=== PATIENT | female | born 2000 | race Caucasian/White ===

== ENCOUNTER 2021-05-03 13:02 | Outpatient (CLI) | payer OTHER | END 2021-05-03 23:59 | disposition home or self-care (01) | LOC: LAB.N 13:02 | PROVIDERS: ATTEND Nurse Practitioner | DX: R39.9 Unspecified symptoms and signs involving the genitourinary system (principal) | CPT/HCPCS: 87086; 87181 ==

== ENCOUNTER 2021-07-29 02:16 | Emergency (ER) | payer OTHER ==
[2021-07-29 02:28] VITALS: BP 120/72
[2021-07-29 02:47] LABS: BASOPHILS # (AUTO) 0.1 10^3/uL (0.0-0.1); BASOPHILS % (AUTO) 0.6 %; EOSINOPHILS # (AUTO) 0.1 10^3/uL (0.0-0.7); EOSINOPHILS % (AUTO) 1.4 %; HCT - HEMATOCRIT 42.9 % (37.0-47.0); HGB - HEMOGLOBIN 14.1 g/dL (12.0-16.0); LYMPHOCYTES # (AUTO) 1.6 10^3/uL (1.5-3.5); MEAN CORPUSCULAR HEMOGLOBIN 28.4 pg (27.0-31.0); MEAN CORPUSCULAR HGB CONC 32.9 g/dL (32.0-36.0); MEAN CORPUSCULAR VOLUME 86.3 fL (81.0-99.0); MONOCYTES # (AUTO) 0.8 10^3/uL (0.0-1.0); MONOCYTES % (AUTO) 9.3 %; NEUTROPHILS # (AUTO) 5.9 10^3/uL (1.5-6.6); NEUTROPHILS % (AUTO) 69.6 %; PLT - PLATELET COUNT 232 10^3/uL (130-450); RED BLOOD COUNT 4.97 10^6/uL (4.20-5.40); RED CELL DISTRIBUTION WIDTH 13.2 % (12.0-15.0); WHITE BLOOD COUNT 8.5 x10^3/uL (4.8-10.8)
--- NOTE | 2021-07-29 03:03 | ED Physician Documentation ---
PD HPI MHE - Stated complaint Stated Complaint: SI - Chief complaint Chief Complaint: MHE - History obtained from History obtained from: Patient - History of Present Illness Primary symptom: Suicidal ideation, Self harm - cut Timing - onset: Today Contributing factors: Off meds Similar symptoms before: Diagnosis (depression) Recently seen: Clinic - Additional information Additional information: patient was driven to ED by her friend. Patient states "I'm having some suicidal thoughts". She started feeling this way earlier today. She does not have a specific plan (has not thought through/envisioned a process leading to suicide nor has specific methods she has considered). She says she stopped taking her lexapro (which she has been taking for approximately 1.5 months); she stopped 2- 3 days ago because she has felt ill with sore throat and subjective fever (has not taken temperature at home but has felt as though she has had fevers). She was evaluated in outpatient setting ([facility]) yesterday for this; patient says she had a COVID swab (result was negative for COVID) and has a strep test pending (does not think she had a rapid strep test performed). Tonight she took a razor (using a blade that was in a shaving razor, not an individual/loose razor blade) and self-inflicted abrasions and some superficial cuts to her left thigh. She then called a friend to tell her how she was feeling, cried for much of the call and thus friend came to patient's residence and then drove patient to ED. Patient was agreeable to come to ED (she is here voluntarily). Patient is COVID vaccinated. Review of Systems Constitutional: reports: Fever (subjective (see HPI)) Cardiac: reports: Reviewed and negative Respiratory: reports: Reviewed and negative GI: reports: Reviewed and negative PD PAST MEDICAL HISTORY - Past Medical History Past Medical History: Yes Psych: Depression - Allergies Allergies/Adverse Reactions: Allergies Allergy/AdvReac Type Severity Reaction Status Date / Time No Known Drug Allergies Allergy Verified 07/29/21 02:28 PD ED PE NORMAL - Vitals Vital signs reviewed: Yes - General General: Alert and oriented X 3, No acute distress, Well developed/nourished - Cardiac Cardiac: RRR, No murmur - Respiratory Respiratory: No respiratory distress, Clear bilaterally - Abdomen Abdomen: Soft, Non tender - Neuro Eye Opening: Spontaneous Motor: Obeys Commands Verbal: Oriented GCS Score: 15 - Psych Psych: Normal mood, Normal affect PD ED PE EXPANDED - HEENT HEENT: Pharyngeal erythema, Tonsillar exudate. No: Swollen tonsils - Extremities JEF LE visual: 1 - abrasion (multiple linear superficial abrasions, approximately 2 cm across consistent with her report of using a razor still in the shaver on her thigh) Results - Vitals Vitals: Vital Signs - 24 hr 07/29/21 02:19 Temperature 37.0 C Heart Rate 103 H Respiratory 16 Rate Blood Pressure 120/72 O2 Saturation 98 Oxygen O2 Source Room air - Labs Labs: Laboratory Tests 07/29/21 07/29/21 07/29/21 02:40 02:40 02:40 WBC 8.5 RBC 4.97 Hgb 14.1 Hct 42.9 MCV 86.3 MCH 28.4 MCHC 32.9 RDW 13.2 Plt Count 232 MPV 10.0 Neut # (Auto) 5.9 Lymph # (Auto) 1.6 [place] # (Auto) 0.8 Eos # (Auto) 0.1 Baso # (Auto) 0.1 Absolute Nucleated RBC 0.00 Nucleated RBC % 0.0 Sodium 138 Potassium 3.2 L Chloride 103 Carbon Dioxide 25 Anion Gap 10.0 BUN 15 Creatinine 0.8 Estimated GFR (MDRD) 92 Glucose 132 H Calcium 9.4 Total Bilirubin 0.4 AST 86 H ALT 25 Alkaline Phosphatase 54 Total Protein 8.2 Albumin 4.5 Globulin 3.7 Albumin/Globulin Ratio 1.2 Lipase 31 TSH 6.92 H Salicylates < 6.0 Acetaminophen < 10 L Ethyl Alcohol < 5.0 PD MEDICAL DECISION MAKING - ED course Complexity details: reviewed results, re-evaluated patient, considered differential, d/w patient ED course: On initial H+P, I asked patient if she is interested in pursuing inpatient mental health treatment and she says she isn't certain. We agreed to give some time for tests to result and this would give her some time to consider whether she felt confidently safe to go home, or else wants to be admitted or remains uncertain. She fell asleep and rather than wake her, I let her sleep for a few hours before waking her up at change of shift. She awakens easily to voice. I reviewed test results with her including mild hypokalemia and mildly elevated TSH. We revisited the question of how she feels and she says she wants to be discharged and that she is confident that she feels safe going back home. She contracts for safety, says she will return immediately if she feels unsafe at home (including if she is unsure if she is safe, specifically regarding thoughts of self-harm or suicide). Departure - Departure Disposition: Home, Self Care Clinical Impression: Hypokalemia Depression Qualifiers: Depression Type: unspecified Qualified Code(s): F32.A - Depression, unspecified Condition: Good Instructions: ED Depression, ED Potassium Deficiency Follow-Up: [facility] [Provider Group] Comments: Follow up with your primary care provider, next available appointment. Please return to the emergency department at any time for reevaluation if you feel unsafe at home (such as recurrence of thoughts of self-harm). I recommend you restart your lexapro as prescribed. You should also discuss with your primary care provider your abnormal test results. Specifically, low potassium level and mildly elevated thyroid stimulating hormone level. Further testing might be indicated for one or both of these findings, but further emergent testing is not indicated at this time. Discharge Date/Time: 07/29/21 08:10
[2021-07-29 03:06] LABS: ACETAMINOPHEN < 10 ug/mL (10-30); ALBUMIN 4.5 g/dL (3.2-5.5); ALBUMIN/GLOBULIN RATIO 1.2 (1.0-2.2); ALKALINE PHOSPHATASE 54 IU/L (42-121); ALT ALANINE AMINOTRANSFERASE 25 IU/L (10-60); AST ASPARTATE AMINOTRANSFERASE 86 IU/L (10-42); BILIRUBIN,TOTAL 0.4 mg/dL (0.2-1.0); BUN - BLOOD UREA NITROGEN 15 mg/dL (6-20); CALCIUM 9.4 mg/dL (8.5-10.3); CARBON DIOXIDE - CO2 25 mmol/L (21-32); CHLORIDE 103 mmol/L (101-111); CREATININE 0.8 mg/dL (0.4-1.0); ETOH - ETHANOL < 5.0 mg/dL; GFR - MDRD 92 (>89); GLUCOSE 132 mg/dL (70-100); LIPASE 31 U/L (22-51); POTASSIUM 3.2 mmol/L (3.5-5.0); SALICYLATE < 6.0 mg/dL; SODIUM 138 mmol/L (135-145); TOTAL PROTEIN 8.2 g/dL (6.7-8.2)
[2021-07-29] MEDS ORDERED: POTASSIUM CHLORIDE 20 MEQ TABLET PO STA (07:53)
== END 2021-07-29 08:10 | disposition home or self-care (01) ==
LOC: ED 02:16
DX: F32.A Depression, unspecified (principal); S70.312A Abrasion, left thigh, initial encounter; X78.8XXA Intentional self-harm by other sharp object, initial encounter; Y92.009 Unspecified place in unspecified non-institutional (private) residence as the place of occurrence of the external cause; E87.6 Hypokalemia; R94.6 Abnormal results of thyroid function studies
CPT/HCPCS: 36415; 80053; 80307; 80320; 80329; 83690; 84443; 85025; 99283; 99284; A9270

== ENCOUNTER 2022-03-26 14:30 | Emergency (ER) | payer OTHER ==
[2022-03-26 15:01] LABS: BASOPHILS # (AUTO) 0.1 10^3/uL (0.0-0.1); BASOPHILS % (AUTO) 0.5 %; EOSINOPHILS # (AUTO) 0.1 10^3/uL (0.0-0.7); EOSINOPHILS % (AUTO) 1.2 %; HCT - HEMATOCRIT 38.5 % (37.0-47.0); HGB - HEMOGLOBIN 12.5 g/dL (12.0-16.0); LYMPHOCYTES # (AUTO) 2.2 10^3/uL (1.5-3.5); LYMPHOCYTES % (AUTO) 23.9 %; MEAN CORPUSCULAR HEMOGLOBIN 27.5 pg (27.0-31.0); MEAN CORPUSCULAR HGB CONC 32.5 g/dL (32.0-36.0); MEAN CORPUSCULAR VOLUME 84.6 fL (81.0-99.0); MEAN PLATELET VOLUME 10.1 fL (7.9-10.8); MONOCYTES # (AUTO) 0.6 10^3/uL (0.0-1.0); MONOCYTES % (AUTO) 6.2 %; NEUTROPHILS # (AUTO) 6.3 10^3/uL (1.5-6.6); NEUTROPHILS % (AUTO) 67.8 %; PLT - PLATELET COUNT 324 10^3/uL (130-450); RED BLOOD COUNT 4.55 10^6/uL (4.20-5.40); RED CELL DISTRIBUTION WIDTH 13.2 % (12.0-15.0); WHITE BLOOD COUNT 9.2 x10^3/uL (4.8-10.8)
[2022-03-26 15:13] LABS: ALBUMIN 4.2 g/dL (3.2-5.5); ALBUMIN/GLOBULIN RATIO 1.3 (1.0-2.2); BILIRUBIN,TOTAL 0.4 mg/dL (0.2-1.0); CALCIUM 9.5 mg/dL (8.5-10.3); CREATININE 0.8 mg/dL (0.4-1.0); POTASSIUM 3.8 mmol/L (3.5-5.0); TOTAL PROTEIN 7.4 g/dL (6.7-8.2)
[2022-03-26 15:42] LABS: BILIRUBIN,URINE NEGATIVE (NEGATIVE); GLUCOSE, URINE (UA) NEGATIVE (NEGATIVE); KETONES,URINE (UA) NEGATIVE (NEGATIVE); LEUKOCYTE ESTERASE, URINE NEGATIVE (NEGATIVE); NITRITE,URINE NEGATIVE (NEGATIVE); OCCULT BLOOD,URINE NEGATIVE (NEGATIVE); PH,URINE 6.5 PH (5.0-7.5); PROTEIN,URINE NEGATIVE (NEGATIVE); UROBILINOGEN,URINE 0.2 (NORMAL) E.U./dL (NORMAL)
[2022-03-26 15:45] LABS: CLARITY,URINE CLEAR (CLEAR); HCG UR QUAL NEGATIVE
[2022-03-26] MEDS ORDERED: KETOROLAC 60 MG/2 ML VIAL IM STA (16:00)
--- NOTE | 2022-03-26 16:05 | ED Physician Documentation ---
History of Present Illness - Stated complaint Stated Complaint: ABD PX - Chief complaint Chief Complaint: Abd Pain - Additonal information Additional information: 21-year-old female who comes to the emergency department for evaluation of lower abdominal pain. Reports that she was seen at an ER on 15 March for lower abdominal pain and cramping. She had a CT scan that showed colitis. ED providers at that time felt she likely had IBS and was started on Bentyl. Initially this improve the symptoms until today where the pain got worse. She has followed up with her PCP. She has obtained a referral to GI though it has not been completed. No fevers, melena or hematochezia. No nausea vomiting or diarrhea. She does report that her sister has Crohn's. She has not taken anything other than the Bentyl Review of Systems Constitutional: reports: Reviewed and negative Nose: reports: Reviewed and negative Throat: reports: Reviewed and negative Cardiac: reports: Chest pain / pressure Respiratory: reports: Reviewed and negative GI: reports: Abdominal Pain. 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 : None HEENT: None Psych: Depression, Anxiety, Post traumatic stress disorder Musculoskeletal: None Derm: None - Past Surgical History Past Surgical History: No - Present Medications Home Medications: Ambulatory Orders Medication Instructions Recorded Confirmed Dicyclomine [Bentyl] 20 mg PO QID PRN 03/26/22 03/26/22 Fluoxetine HCl [Prozac] 40 mg PO DAILY 03/26/22 03/26/22 Ondansetron Odt [Zofran Odt] 4 mg TL Q6H PRN 03/26/22 03/26/22 hydrOXYzine HCL [Hydroxyzine HCl] 10 mg PO QID PRN 03/26/22 03/26/22 polyethylene glycoL 3350 [Miralax] 17 gm PO DAILY 03/26/22 03/26/22 - Allergies Allergies/Adverse Reactions: Allergies Allergy/AdvReac Type Severity Reaction Status Date / Time No Known Drug Allergies Allergy Verified 03/26/22 14:33 - Social History Does the pt smoke?: No Smoking Status: Never smoker Does the pt drink ETOH?: No Does the pt have substance abuse?: No - Immunizations Immunizations are current?: No - POLST Patient has POLST: No PD ED PE NORMAL - General General: Alert and oriented X 3, No acute distress - HEENT HEENT: Atraumatic, Ears normal - Neck Neck: Supple, no meningeal sign - Cardiac Cardiac: RRR, No murmur - Respiratory Respiratory: No respiratory distress - Abdomen Abdomen: Normal bowel sounds, Soft, Non tender (No abdominal tenderness elicited on exam) - Back Back: No CVA TTP - Derm Derm: Normal color, Warm and dry, No rash - Extremities Extremities: No deformity, No tenderness to palpate, Normal ROM s pain - Neuro Neuro: Alert and oriented X 3, 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 Eye Opening: Spontaneous Motor: Obeys Commands Verbal: Oriented GCS Score: 15 - Psych Psych: Normal mood Results - Vitals Vitals: Vital Signs - 24 hr 03/26/22 14:36 Temperature 37.2 C Heart Rate 92 Respiratory 16 Rate Blood Pressure 121/60 O2 Saturation 98 Oxygen O2 Source Room air - Labs Labs: Laboratory Tests 03/26/22 03/26/22 03/26/22 14:50 14:55 14:55 WBC 9.2 RBC 4.55 Hgb 12.5 Hct 38.5 MCV 84.6 MCH 27.5 MCHC 32.5 RDW 13.2 Plt Count 324 MPV 10.1 Neut # (Auto) 6.3 Lymph # (Auto) 2.2 [place] # (Auto) 0.6 Eos # (Auto) 0.1 Baso # (Auto) 0.1 Absolute Nucleated RBC 0.00 Nucleated RBC % 0.0 Sodium 136 Potassium 3.8 Chloride 101 Carbon Dioxide 28 Anion Gap 7.0 BUN 14 Creatinine 0.8 Estimated GFR (MDRD) 91 Glucose 103 H Calcium 9.5 Total Bilirubin 0.4 AST 20 ALT 20 Alkaline Phosphatase 48 Total Protein 7.4 Albumin 4.2 Globulin 3.2 Albumin/Globulin Ratio 1.3 Lipase 31 Urine Color YELLOW Urine Clarity CLEAR Urine pH 6.5 Ur Specific [place] 1.025 Urine Protein NEGATIVE Urine Glucose (UA) NEGATIVE Urine Ketones NEGATIVE Urine Occult Blood NEGATIVE Urine Nitrite NEGATIVE Urine Bilirubin NEGATIVE Urine Urobilinogen 0.2 (NORMAL) Ur Leukocyte Esterase NEGATIVE Ur Microscopic Review NOT INDICATED Urine Culture Comments NOT INDICATED Urine HCG, Qual NEGATIVE PD MEDICAL DECISION MAKING - ED course Complexity details: re-evaluated patient, considered differential, d/w patient ED course: This is a very well-appearing 21-year-old female that presents emergency department for evaluation of lower abdominal pain. Seen the beginning of March at an ER in [place] and diagnosed with colitis after CT scan. Patient reports to me verbally that the ER providers felt she had irritable bowel syndrome and she was started on dyclonine. That did initially improve her symptoms over the last few days pain has worsened. She does have a pending referral to GI. 9 here in the emergency department I did not elicit any abdominal tenderness on exam. Her screening labs are also essentially unremarkable. Therefore will defer any CT imaging today. I discussed with patient that she may have a constellation of symptoms and includes irritable bowel versus an inflammatory bowel disorder. Referral to GI is appropriate as she likely needs EGD versus colonoscopy. She was given an injection of Toradol here in the emergency department And on reevaluation does have some minor pain relief. I do recommend Tylenol and ibuprofen [id number]. If this is in fact an irritable as opposed to an inflammatory bowel condition she may benefit from increased fiber intake and I have also advised this with her. However given her unremarkable exam and normal labs and vital signs will defer any further imaging. Emergent return precautions otherwise discussed Departure - Departure Disposition: 01 Home, Self Care Clinical Impression: Lower abdominal pain Condition: Stable Record reviewed to determine appropriate education?: Yes Instructions: ED IBS, Diet High Fiber Dc Comments: Milly you were seen today in the emergency department for pain in your lower abdomen. You were recently diagnosed with colitis after a CAT scan in [place]. However it sounds like the ED providers at that time felt you may have an irritable bowel syndrome and started you on Bentyl. Inflammatory and irritable bowel symptoms often begin in young adulthood. I do recommend that you begin to keep a food diary as well as a diary of your symptoms. Continuing the Bentyl is okay. For worsening symptoms I recommend Tylenol or ibuprofen. If this is in fact simply an irritable bowel syndrome as opposed to an inflammatory condition, I do recommend that you increase your fiber intake. Increasing doses of fiber can help reduce the spasm seen in irritable bowel. Continue to follow-up with gastroenterology. You would benefit from further evaluation with either an EGD or colonoscopy. Return to the emergency department if you have fevers, black or bloody stools, uncontrolled vomiting or suddenly severe or different abdominal pain.
[2022-03-26 16:31] VITALS: BP 108/60
== END 2022-03-26 16:33 | disposition home or self-care (01) ==
LOC: ED 14:30
DX: R10.30 Lower abdominal pain, unspecified (principal)
CPT/HCPCS: 36415; 80053; 81001; 81003; 81025; 83690; 85025; 87086; 96372; 99283; 99284

== ENCOUNTER 2022-05-03 11:08 | Emergency (ER) | payer OTHER ==
[2022-05-03 11:41] LABS: BASOPHILS # (AUTO) 0.1 10^3/uL (0.0-0.1); EOSINOPHILS # (AUTO) 0.2 10^3/uL (0.0-0.7); EOSINOPHILS % (AUTO) 3.1 %; HCT - HEMATOCRIT 37.9 % (37.0-47.0); HGB - HEMOGLOBIN 12.3 g/dL (12.0-16.0); LYMPHOCYTES % (AUTO) 35.1 %; MEAN CORPUSCULAR HEMOGLOBIN 27.4 pg (27.0-31.0); MEAN CORPUSCULAR HGB CONC 32.5 g/dL (32.0-36.0); MEAN CORPUSCULAR VOLUME 84.4 fL (81.0-99.0); MEAN PLATELET VOLUME 9.8 fL (7.9-10.8); MONOCYTES # (AUTO) 0.6 10^3/uL (0.0-1.0); MONOCYTES % (AUTO) 9.8 %; NEUTROPHILS # (AUTO) 2.9 10^3/uL (1.5-6.6); NEUTROPHILS % (AUTO) 50.7 %; PLT - PLATELET COUNT 351 10^3/uL (130-450); RED BLOOD COUNT 4.49 10^6/uL (4.20-5.40); RED CELL DISTRIBUTION WIDTH 14.1 % (12.0-15.0); WHITE BLOOD COUNT 5.7 x10^3/uL (4.8-10.8)
[2022-05-03 11:52] LABS: ALBUMIN 4.1 g/dL (3.2-5.5); ALBUMIN/GLOBULIN RATIO 1.2 (1.0-2.2); BILIRUBIN,TOTAL 0.4 mg/dL (0.2-1.0); CALCIUM 9.5 mg/dL (8.5-10.3); CREATININE 0.7 mg/dL (0.4-1.0); POTASSIUM 4.2 mmol/L (3.5-5.0); TOTAL PROTEIN 7.5 g/dL (6.7-8.2)
--- NOTE | 2022-05-03 13:33 | ED Physician Documentation ---
PD HPI ABD PAIN - Stated complaint Stated Complaint: ABD PX - Chief complaint Chief Complaint: Abd Pain - History obtained from History obtained from: Patient - History of Present Illness Timing - onset: How many months ago (2) Timing - duration: Months (2) Timing - details: Abrupt onset, Still present, Waxing and waning Quality: Cramping, Aching, Pain Location: Periumbilical, LLQ Improved by: No: Eating, BM Worsened by: Eating, Palpation. No: Breathing Associated symptoms: Nausea. No: Fever, Vomiting, Diarrhea, Hematochezia, Dysuria, Vaginal bleeding, Vaginal dc Similar symptoms before: No diagnosis (has had persistent pain with prior CT/US/lab and stool testings. Recent GI appt with scheduled endoscopies early May. At this point, I would treat symptoms and not necessarily do much testing. Patient okay with that.) Recently seen: Clinic, Emergency Dept Review of Systems Constitutional: denies: Fever, Chills Nose: denies: Rhinorrhea / runny nose, Congestion Throat: denies: Sore throat Respiratory: denies: Cough GI: reports: Abdominal Pain, Nausea. 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 : None HEENT: None Psych: Depression, Anxiety, Post traumatic stress disorder Musculoskeletal: None Derm: None - Past Surgical History Past Surgical History: No - Present Medications Home Medications: Ambulatory Orders Medication Instructions Recorded Confirmed Dicyclomine [Bentyl] 20 mg PO QID PRN 03/26/22 03/26/22 Fluoxetine HCl [Prozac] 40 mg PO DAILY 03/26/22 03/26/22 Ondansetron Odt [Zofran Odt] 4 mg TL Q6H PRN 03/26/22 03/26/22 hydrOXYzine HCL [Hydroxyzine HCl] 10 mg PO QID PRN 03/26/22 03/26/22 polyethylene glycoL 3350 [Miralax] 17 gm PO DAILY 03/26/22 03/26/22 Docusate Sodium 100Mg Capsule 100 mg PO DAILY #20 cap 05/03/22 [Colace 100Mg Capsule] HYDROcod/ACETAM 5/325 [[place] 5/325] 1 ea PO Q6H PRN #15 tablet 05/03/22 Promethazine [Phenergan] 25 mg PO Q6H PRN #20 tab 05/03/22 - Allergies Allergies/Adverse Reactions: Allergies Allergy/AdvReac Type Severity Reaction Status Date / Time No Known Drug Allergies Allergy Verified 05/03/22 11:19 - Social History Does the pt smoke?: No Smoking Status: Never smoker Does the pt drink ETOH?: No Does the pt have substance abuse?: No - Immunizations Immunizations are current?: No - POLST Patient has POLST: No PD ED PE NORMAL - Vitals Vital signs reviewed: Yes - General General: Alert and oriented X 3, Well developed/nourished, Other (appears in pain lower abd. ) - HEENT HEENT: PERRL, EOMI (nonicteric), Pharynx benign - Neck Neck: Supple, no meningeal sign, No adenopathy - Cardiac Cardiac: RRR, No murmur - Respiratory Respiratory: Clear bilaterally - Abdomen Abdomen: Normal bowel sounds, Soft, Non distended, No organomegaly, Other (tender mid to left abdomen without percussion nor rebound tenderness. ) - Female Female : Deferred - Rectal Rectal: Deferred - Back Back: No CVA TTP - Derm Derm: Normal color, Warm and dry - Extremities Extremities: Normal ROM s pain, No calf tenderness / cord - Neuro Neuro: Alert and oriented X 3, No motor deficit, Normal speech Results - Vitals Vitals: Vital Signs - 24 hr 05/03/22 15:56 Heart Rate 83 Respiratory 18 Rate Blood Pressure 97/82 H O2 Saturation 100 Oxygen O2 Source Room air - Labs Labs: Laboratory Tests 05/03/22 05/03/22 05/03/22 11:35 11:35 13:40 WBC 5.7 RBC 4.49 Hgb 12.3 Hct 37.9 MCV 84.4 MCH 27.4 MCHC 32.5 RDW 14.1 Plt Count 351 MPV 9.8 Neut # (Auto) 2.9 Lymph # (Auto) 2.0 [place] # (Auto) 0.6 Eos # (Auto) 0.2 Baso # (Auto) 0.1 Absolute Nucleated RBC 0.00 Nucleated RBC % 0.0 Sodium 138 Potassium 4.2 Chloride 103 Carbon Dioxide 26 Anion Gap 9.0 BUN 19 Creatinine 0.7 Estimated GFR (MDRD) 107 Glucose 92 Calcium 9.5 Total Bilirubin 0.4 AST 22 ALT 19 Alkaline Phosphatase 49 Total Protein 7.5 Albumin 4.1 Globulin 3.4 Albumin/Globulin Ratio 1.2 Lipase 32 Urine Color YELLOW Urine Clarity CLEAR Urine pH 6.0 Ur Specific [place] 1.020 Urine Protein NEGATIVE Urine Glucose (UA) NEGATIVE Urine Ketones NEGATIVE Urine Occult Blood TRACE-INTA Urine Nitrite NEGATIVE Urine Bilirubin NEGATIVE Urine Urobilinogen 0.2 (NORMAL) Ur Leukocyte Esterase NEGATIVE Ur Microscopic Review NOT INDICATED Urine Culture Comments NOT INDICATED Urine HCG, Qual NEGATIVE PD MEDICAL DECISION MAKING - ED course Complexity details: reviewed old records, reviewed results, considered differential (has had ongoing workup with planned endoscopy/colonoscopy in couple weeks. I do not see value in repeated imaging tests, and will treat symptoms mainly. ), d/w patient Departure - Departure Disposition: Home, Self Care Clinical Impression: Abdominal pain, Nausea Condition: Stable Record reviewed to determine appropriate education?: Yes Instructions: ED Abdominal Pain Female Non-Specific Abdominal Pain Follow-Up: [facility] [Provider Group] Prescriptions: Docusate Sodium 100Mg Capsule [Colace 100Mg Capsule] 100 mg PO DAILY #20 cap HYDROcod/ACETAM 5/325 [[place] 5/325] 1 ea PO Q6H PRN #15 tablet PRN Reason: Pain Promethazine [Phenergan] 25 mg PO Q6H PRN #20 tab PRN Reason: Nausea / Vomiting Comments: Small frequent fluids and stay well-hydrated. Promethazine every 6 hours if needed for nausea. I would add docusate stool softener daily to help with regular stools. Continue your MiraLAX daily and as needed. Continue your other usual medications. Add Tylenol every 4-6 hours if needed for pain. Do not use any anti- inflammatories as directed by your top lift trimmer. Add hydrocodone pain medicine if needed for pains. [facility] prescriptions [email or web address]. Follow-up with your top lift trimmer for endoscopy May 14 as planned. Return if worsening or other symptoms. My narcotic instructions I am prescribing a short course of narcotic pain medication for you. These are potentially dangerous and addictive medications that should be used carefully. These medications may constipate you. Take an [id number] stool softener such as docusate twice daily with plenty of water while taking these medications. If you go 24 hours without a bowel movement, take [id number] MiraLAX, per package instructions. Do not drink or drive while taking these medications. If you received narcotic or sedating medications while in the emergency department do not drive for 24 hours. Store this medication in a safe, secure place and out of reach of children. It is a violation of federal law to give or sell this medication to another person or to use in a manner other than prescribed. The ED will not refill narcotic prescriptions, including prescriptions lost or stolen. You can dispose of unwanted medications at the [facility]'s office or at several pharmacies such as [facility]. Discharge Date/Time: 05/03/22 15:56
[2022-05-03 13:51] LABS: BILIRUBIN,URINE NEGATIVE (NEGATIVE); GLUCOSE, URINE (UA) NEGATIVE (NEGATIVE); KETONES,URINE (UA) NEGATIVE (NEGATIVE); LEUKOCYTE ESTERASE, URINE NEGATIVE (NEGATIVE); NITRITE,URINE NEGATIVE (NEGATIVE); OCCULT BLOOD,URINE TRACE-INTA (NEGATIVE); PROTEIN,URINE NEGATIVE (NEGATIVE); UROBILINOGEN,URINE 0.2 (NORMAL) E.U./dL (NORMAL)
[2022-05-03 13:53] LABS: CLARITY,URINE CLEAR (CLEAR); HCG UR QUAL NEGATIVE
[2022-05-03] MEDS ORDERED: DROPERIDOL 5 MG/2 ML VIAL IVP STA (14:00)
[2022-05-03] MEDS ORDERED: HYDROmorphone 0.5 MG/0.5 ML SYRINGE IVP STA (14:00)
[2022-05-03] MEDS ORDERED: SODIUM CHLORIDE 0.9% 1,000 ML IV STA (14:00)
[2022-05-03] MEDS ORDERED: KETOROLAC 15 MG/ML VIAL IVP STA (14:00)
[2022-05-03 15:57] VITALS: BP 97/82
== END 2022-05-03 15:56 | disposition home or self-care (01) ==
LOC: ED 11:08
DX: R10.32 Left lower quadrant pain (principal); R11.0 Nausea
CPT/HCPCS: 36415; 80053; 81003; 81025; 83690; 85025; 96374; 99283; 99284; J1170; 81001; 87086

== ENCOUNTER 2022-06-11 09:10 | Emergency (ER) | payer OTHER ==
--- NOTE | 2022-06-11 09:33 | ED Physician Documentation ---
PD HPI NVD - Stated complaint Stated Complaint: NAUSEA - Chief complaint Chief Complaint: Abd Pain - History obtained from History obtained from: Patient - History of Present Illness Timing - onset: Last night, Yesterday Timing - duration: Hours (12) Timing - details: Abrupt onset, Still present Associated symptoms: Abdominal pain (chronic but not worse than usual today.), Loss of appetite. No: Fever, Near syncope / syncope, Dysuria Contributing factors: No: Sick contact, Bad food, Travel, Alcohol use Similar symptoms before: Has not had sx before (not usual symptom. Has lower abd/pelvic pain regularly.) Recently seen: Emergency Dept (for her pelvic pain) Review of Systems Constitutional: denies: Fever, Chills Nose: denies: Rhinorrhea / runny nose, Congestion Throat: denies: Sore throat Respiratory: denies: Cough GI: reports: Nausea, Vomiting. 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 : None HEENT: None Psych: Depression, Anxiety, Post traumatic stress disorder Musculoskeletal: None Derm: None - Past Surgical History Past Surgical History: No - Present Medications Home Medications: Ambulatory Orders Medication Instructions Recorded Confirmed Fluoxetine HCl [Prozac] 40 mg PO DAILY 03/26/22 06/11/22 Promethazine [Phenergan] 25 mg PO Q6H PRN #25 tab 06/11/22 - Allergies Allergies/Adverse Reactions: Allergies Allergy/AdvReac Type Severity Reaction Status Date / Time No Known Drug Allergies Allergy Verified 06/11/22 10:14 - Social History Does the pt smoke?: No Smoking Status: Never smoker Does the pt drink ETOH?: No Does the pt have substance abuse?: No - Immunizations Immunizations are current?: No - POLST Patient has POLST: No PD ED PE NORMAL - Vitals Vital signs reviewed: Yes - General General: Alert and oriented X 3, No acute distress, Well developed/nourished - HEENT HEENT: PERRL, EOMI, Pharynx benign - Neck Neck: Supple, no meningeal sign, No adenopathy - Cardiac Cardiac: RRR, No murmur - Respiratory Respiratory: Clear bilaterally - Abdomen Abdomen: Normal bowel sounds, Soft, Non distended - Back Back: No CVA TTP - Derm Derm: Normal color, Warm and dry - Neuro Neuro: Alert and oriented X 3, No motor deficit, No sensory deficit, Normal speech Results - Vitals Vitals: Oxygen O2 Source Room air - Labs Labs: Laboratory Tests 06/11/22 09:54 Urine Color YELLOW Urine Clarity CLEAR Urine pH 5.5 Ur Specific [place] >=1.030 H Urine Protein NEGATIVE Urine Glucose (UA) NEGATIVE Urine Ketones NEGATIVE Urine Occult Blood MODERATE H Urine Nitrite NEGATIVE Urine Bilirubin NEGATIVE Urine Urobilinogen 0.2 (NORMAL) Ur Leukocyte Esterase NEGATIVE Urine RBC 0-5 Urine WBC 0-3 Ur Squamous Epith Cells FEW Squamous Urine Bacteria Few Ur Microscopic Review INDICATED Urine Culture Comments NOT INDICATED Urine HCG, Qual NEGATIVE PD MEDICAL DECISION MAKING - ED course Complexity details: reviewed old records, reviewed results, considered differential (chronic pelvic/abd pains in the past. Does not typically have nauea/vomiting. Consider viral or food related. She does not feel she needs IV. Given IM med. ), d/w patient Departure - Departure Disposition: 01 Home, Self Care Clinical Impression: Nausea and vomiting Qualifiers: Vomiting type: unspecified Qualified Code(s): R11.2 - Nausea with vomiting, unspecified Condition: Stable Record reviewed to determine appropriate education?: Yes Instructions: ED Nausea Vomiting Follow-Up: [facility]EL[facility] ARNP [Primary Care Provider] - Prescriptions: Promethazine [Phenergan] 25 mg PO Q6H PRN #25 tab PRN Reason: Nausea / Vomiting Comments: Your urine is clear without signs of infection. Hopefully the nausea vomiting and loose stool symptoms he had are transient viral process or food related and will only be for a couple of days. Continue with your ondansetron as needed. You could add promethazine/Phenergan every 6-8 hours if needed for nausea as well. Follow-up with your primary care if not improved over the next couple of days. I transmitted the prescriptions to the [facility]. Discharge Date/Time: 06/11/22 11:24
[2022-06-11] MEDS ORDERED: PROMETHAZINE 25 MG/1 ML VIAL IM STA (10:08)
[2022-06-11 10:13] LABS: BILIRUBIN,URINE NEGATIVE (NEGATIVE); GLUCOSE, URINE (UA) NEGATIVE (NEGATIVE); KETONES,URINE (UA) NEGATIVE (NEGATIVE); LEUKOCYTE ESTERASE, URINE NEGATIVE (NEGATIVE); NITRITE,URINE NEGATIVE (NEGATIVE); OCCULT BLOOD,URINE MODERATE (NEGATIVE); PH,URINE 5.5 PH (5.0-7.5); PROTEIN,URINE NEGATIVE (NEGATIVE); UROBILINOGEN,URINE 0.2 (NORMAL) E.U./dL (NORMAL)
[2022-06-11 10:14] LABS: CLARITY,URINE CLEAR (CLEAR)
[2022-06-11 10:17] LABS: HCG UR QUAL NEGATIVE
[2022-06-11 10:34] LABS: BACTERIA,URINE Few /HPF (None Seen); RBC,URINE 0-5 /HPF (0-5); SQUAMOUS EPITHELIAL CELL,UR FEW Squamous (<= Few); WBC,URINE 0-3 /HPF (0-5)
[2022-06-11 11:20] VITALS: BP 108/72
== END 2022-06-11 11:24 | disposition home or self-care (01) ==
LOC: ED 09:10
DX: R11.2 Nausea with vomiting, unspecified (principal)
CPT/HCPCS: 81001; 81003; 81025; 87086; 96372; 99283

== ENCOUNTER 2022-07-07 21:19 | Emergency (ER) | payer OTHER ==
--- NOTE | 2022-07-07 21:33 | ED Physician Documentation ---
PD HPI FEMALE - Stated complaint Stated Complaint: BLOOD IN URINE - Chief complaint Chief Complaint: UTI - History obtained from History obtained from: Patient - History of Present Illness Timing - onset: How many weeks ago (2) Timing - details: Intermittant Pain level max: 2 Associated symptoms: No: Fever, Abdominal pain Contributing factors: No: Similar symptoms before: No diagnosis Recently seen: Clinic - Additional information Additional information: c/o 2 weeks of gross hematuria with mild suprapubic discomfort but no dysuria; she also notes mild low back pain across the lower back. Denies fever, denies injury. She says she was seen for this in outpatient setting recently and had urinalysis and was told there was no evidence of infection; per patient, she was told she was having menstrual cramps, no specific treatment at that time. Today she noted some small clots in addition to the hematuria. Review of Systems Constitutional: denies: Fever GI: denies: Abdominal Pain (suprapubic discomfort but not abdominal pain per se), Nausea, Vomiting : reports: Hematuria. 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 HEENT: None Psych: Depression, Anxiety, Post traumatic stress disorder Musculoskeletal: None Derm: None - Past Surgical History Past Surgical History: No - Present Medications Home Medications: Ambulatory Orders Medication Instructions Recorded Confirmed Fluoxetine HCl [Prozac] 40 mg PO DAILY 03/26/22 07/08/22 Cyclobenzaprine [Flexeril] 10 mg PO Q8HR PRN 07/08/22 07/08/22 Dextroamphetamine/Amphetamine 15 mg PO DAILY 07/08/22 07/08/22 [Adderall 15 mg Tablet] Meloxicam [Mobic] 7.5 mg PO BID PRN #20 tablet 07/08/22 Ondansetron HCl 4 mg PO Q6HR PRN 07/08/22 07/08/22 - Allergies Allergies/Adverse Reactions: Allergies Allergy/AdvReac Type Severity Reaction Status Date / Time No Known Drug Allergies Allergy Verified 07/08/22 13:09 - Social History Does the pt smoke?: No Smoking Status: Never smoker Does the pt drink ETOH?: No Does the pt have substance abuse?: No - Immunizations Immunizations are current?: No - POLST Patient has POLST: No PD ED PE NORMAL - Vitals Vital signs reviewed: Yes - General General: Alert and oriented X 3, No acute distress, Well developed/nourished - Abdomen Abdomen: Normal bowel sounds, Soft, Non tender, Non distended - Back Back: No CVA TTP Results - Vitals Vitals: Oxygen O2 Source Room air - Labs Labs: Laboratory Tests 07/07/22 21:30 Urine Color YELLOW Urine Clarity HAZY Urine pH 6.0 Ur Specific [place] 1.020 Urine Protein NEGATIVE Urine Glucose (UA) NEGATIVE Urine Ketones NEGATIVE Urine Occult Blood SMALL H Urine Nitrite NEGATIVE Urine Bilirubin NEGATIVE Urine Urobilinogen 0.2 (NORMAL) Ur Leukocyte Esterase NEGATIVE Urine RBC 6-10 H Urine WBC 0-3 Ur Squamous Epith Cells NONE SEEN Urine Bacteria None Seen Ur Microscopic Review INDICATED Urine Culture Comments NOT INDICATED Urine HCG, Qual NEGATIVE PD MEDICAL DECISION MAKING - ED course Complexity details: reviewed old records, reviewed results, considered differential, d/w patient ED course: UA tonight shows small blood (macro), 6-10 RBC (micro) with no other abnormalities. Urine HCG negative. Abdomen is nontender although mild TTP suprapubic and left anterior hemipelvis. Further emergent testing is not indicated at this time. Doubt renal colic given the bilateral pain c/o. No evidence of infectious process (UA negative except for blood, no CVAT bilaterally). Hematuria would not be consistent with IC. Cause of patient's hematuria thus unclear at this time. Advised to seek reevaluation by her primary care provider. She might benefit from further testing such as CT A/P w/ w/o (IVP/urogram phasing) and urology referral for consideration of cystocopy Departure - Departure Disposition: 01 Home, Self Care Clinical Impression: Hematuria Condition: Good Instructions: ED Hematuria Follow-Up: TELMA MICHELLE ARNP [Primary Care Provider] - Comments: Your urinalysis confirms blood in the urine but it is otherwise normal; the lack of other abnormalities on the urine test strongly suggests against a urinary tract infection. Further testing is not indicated at this time (in the ER), but, as we discussed, I recommend that you contact your primary care provider to arrange for follow-up appointment. You might need further testing in the outpatient setting, and you might need to see a urologist. Discharge Date/Time: 07/07/22 22:47
[2022-07-07 21:41] LABS: BILIRUBIN,URINE NEGATIVE (NEGATIVE); GLUCOSE, URINE (UA) NEGATIVE (NEGATIVE); KETONES,URINE (UA) NEGATIVE (NEGATIVE); LEUKOCYTE ESTERASE, URINE NEGATIVE (NEGATIVE); NITRITE,URINE NEGATIVE (NEGATIVE); OCCULT BLOOD,URINE SMALL (NEGATIVE); PROTEIN,URINE NEGATIVE (NEGATIVE); UROBILINOGEN,URINE 0.2 (NORMAL) E.U./dL (NORMAL)
[2022-07-07 21:44] LABS: CLARITY,URINE HAZY (CLEAR); HCG UR QUAL NEGATIVE
[2022-07-07 21:50] LABS: BACTERIA,URINE None Seen /HPF (None Seen); SQUAMOUS EPITHELIAL CELL,UR NONE SEEN (<= Few); WBC,URINE 0-3 /HPF (0-5)
[2022-07-07 22:48] VITALS: BP 122/72
== END 2022-07-07 22:47 | disposition home or self-care (01) ==
LOC: ED 21:19
DX: R31.0 Gross hematuria (principal)
CPT/HCPCS: 81001; 81003; 81025; 87086; 99281; 99283

== ENCOUNTER 2022-07-08 12:51 | Emergency (ER) | payer OTHER ==
[2022-07-08 13:27] LABS: BASOPHILS # (AUTO) 0.1 10^3/uL (0.0-0.1); BASOPHILS % (AUTO) 0.7 %; EOSINOPHILS # (AUTO) 0.1 10^3/uL (0.0-0.7); EOSINOPHILS % (AUTO) 1.8 %; HCT - HEMATOCRIT 38.6 % (37.0-47.0); HGB - HEMOGLOBIN 12.9 g/dL (12.0-16.0); LYMPHOCYTES # (AUTO) 2.4 10^3/uL (1.5-3.5); LYMPHOCYTES % (AUTO) 30.8 %; MEAN CORPUSCULAR HEMOGLOBIN 27.5 pg (27.0-31.0); MEAN CORPUSCULAR HGB CONC 33.4 g/dL (32.0-36.0); MEAN CORPUSCULAR VOLUME 82.3 fL (81.0-99.0); MEAN PLATELET VOLUME 9.9 fL (7.9-10.8); MONOCYTES # (AUTO) 0.5 10^3/uL (0.0-1.0); NEUTROPHILS # (AUTO) 4.6 10^3/uL (1.5-6.6); NEUTROPHILS % (AUTO) 60.6 %; PLT - PLATELET COUNT 287 10^3/uL (130-450); RED BLOOD COUNT 4.69 10^6/uL (4.20-5.40); RED CELL DISTRIBUTION WIDTH 13.4 % (12.0-15.0); WHITE BLOOD COUNT 7.7 x10^3/uL (4.8-10.8)
[2022-07-08 13:45] LABS: ALBUMIN 4.4 g/dL (3.2-5.5); ALBUMIN/GLOBULIN RATIO 1.3 (1.0-2.2); BILIRUBIN,TOTAL 0.7 mg/dL (0.2-1.0); CALCIUM 9.7 mg/dL (8.5-10.3); CREATININE 0.8 mg/dL (0.4-1.0); POTASSIUM 3.7 mmol/L (3.5-5.0); TOTAL PROTEIN 7.9 g/dL (6.7-8.2)
[2022-07-08 17:06] LABS: BILIRUBIN,URINE NEGATIVE (NEGATIVE); GLUCOSE, URINE (UA) NEGATIVE (NEGATIVE); KETONES,URINE (UA) NEGATIVE (NEGATIVE); LEUKOCYTE ESTERASE, URINE NEGATIVE (NEGATIVE); NITRITE,URINE NEGATIVE (NEGATIVE); OCCULT BLOOD,URINE MODERATE (NEGATIVE); PROTEIN,URINE NEGATIVE (NEGATIVE); UROBILINOGEN,URINE 0.2 (NORMAL) E.U./dL (NORMAL)
[2022-07-08 17:12] LABS: CLARITY,URINE CLOUDY (CLEAR); HCG UR QUAL NEGATIVE
[2022-07-08 17:13] LABS: AMORPHOUS SEDIMENT,UR Rare /LPF; BACTERIA,URINE Many /HPF (None Seen); RBC,URINE 0-5 /HPF (0-5); SQUAMOUS EPITHELIAL CELL,UR MANY Squamous (<= Few)
[2022-07-08] MEDS ORDERED: LIDOCAINE-MPF 2% 5 ML in SODIUM CHLORIDE 0.9% 50 ML IV STA (17:14)
[2022-07-08] MEDS ORDERED: ACETAMINOPHEN 1,000 MG/100 ML 1,000 MG/100 ML BAG IV ONE (17:14)
--- NOTE | 2022-07-08 17:16 | ED Physician Documentation ---
History of Present Illness - Stated complaint Stated Complaint: ABD PX - Chief complaint Chief Complaint: Abd Pain - History obtained from History obtained from: Patient - History of Present Illness Pain level max: 6 Pain level now: 5 - Additonal information Additional information: Patient is a 21-year-old female who complains of right-sided abdominal pain with hematuria intermittently for the past 2 weeks. Nothing seems to make it better or worse. The pain radiates from the right flank to the right lower abdomen. She was seen here yesterday for same. Pain is continued today. She is not having dysuria or frequency. No fevers. No chills. No vaginal bleeding or discharge. Review of Systems Constitutional: denies: Fever, Chills Respiratory: denies: Cough GI: denies: Vomiting, Diarrhea, Hematemesis, Bloody / black stool : reports: Hematuria. 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 HEENT: None Psych: Depression, Anxiety, Post traumatic stress disorder Musculoskeletal: None Derm: None - Past Surgical History Past Surgical History: No - Present Medications Home Medications: Ambulatory Orders Medication Instructions Recorded Confirmed Fluoxetine HCl [Prozac] 40 mg PO DAILY 03/26/22 07/08/22 Cyclobenzaprine [Flexeril] 10 mg PO Q8HR PRN 07/08/22 07/08/22 Dextroamphetamine/Amphetamine 15 mg PO DAILY 07/08/22 07/08/22 [Adderall 15 mg Tablet] Meloxicam [Mobic] 7.5 mg PO BID PRN #20 tablet 07/08/22 Ondansetron HCl 4 mg PO Q6HR PRN 07/08/22 07/08/22 - Allergies Allergies/Adverse Reactions: Allergies Allergy/AdvReac Type Severity Reaction Status Date / Time No Known Drug Allergies Allergy Verified 07/08/22 13:09 - Social History Does the pt smoke?: No Smoking Status: Never smoker Does the pt drink ETOH?: No Does the pt have substance abuse?: No - Immunizations Immunizations are current?: No - POLST Patient has POLST: No PD ED PE NORMAL - Vitals Vital signs reviewed: Yes - General General: Alert and oriented X 3, No acute distress - HEENT HEENT: Moist mucous membranes - Neck Neck: Supple, no meningeal sign - Cardiac Cardiac: RRR - Respiratory Respiratory: No respiratory distress, Clear bilaterally - Abdomen Abdomen: Normal bowel sounds, Soft, Non tender, Non distended - Back Back: No CVA TTP, No spinal TTP - Derm Derm: Warm and dry - Extremities Extremities: No edema - Neuro Neuro: Alert and oriented X 3 - Psych Psych: Normal mood, Normal affect Results - Vitals Vitals: Vital Signs - 24 hr 07/08/22 07/08/22 07/08/22 13:05 15:25 19:30 Temperature 37.1 C Heart Rate 86 84 63 Respiratory 14 18 16 Rate Blood Pressure 118/79 90/60 108/80 O2 Saturation 100 97 96 Oxygen O2 Source Room air - Labs Labs: Laboratory Tests 07/08/22 07/08/22 07/08/22 13:13 13:22 13:22 WBC 7.7 RBC 4.69 Hgb 12.9 Hct 38.6 MCV 82.3 MCH 27.5 MCHC 33.4 RDW 13.4 Plt Count 287 MPV 9.9 Neut # (Auto) 4.6 Lymph # (Auto) 2.4 [place] # (Auto) 0.5 Eos # (Auto) 0.1 Baso # (Auto) 0.1 Absolute Nucleated RBC 0.00 Nucleated RBC % 0.0 Sodium 139 Potassium 3.7 Chloride 104 Carbon Dioxide 28 Anion Gap 7.0 BUN 15 Creatinine 0.8 Estimated GFR (MDRD) 91 Glucose 89 Calcium 9.7 Total Bilirubin 0.7 AST 20 ALT 15 Alkaline Phosphatase 58 Total Creatine Kinase Total Protein 7.9 Albumin 4.4 Globulin 3.5 Albumin/Globulin Ratio 1.3 Lipase 33 Urine Color YELLOW Urine Clarity CLOUDY Urine pH 6.0 Ur Specific [place] >=1.030 H Urine Protein NEGATIVE Urine Glucose (UA) NEGATIVE Urine Ketones NEGATIVE Urine Occult Blood MODERATE H Urine Nitrite NEGATIVE Urine Bilirubin NEGATIVE Urine Urobilinogen 0.2 (NORMAL) Ur Leukocyte Esterase NEGATIVE Urine RBC 0-5 Urine WBC 4-5 Ur Squamous Epith Cells MANY Squamous H Amorphous Sediment Rare Urine Bacteria Many H Ur Microscopic Review INDICATED Urine Culture Comments NOT INDICATED Urine HCG, Qual NEGATIVE 07/08/22 13:22 WBC RBC Hgb Hct MCV MCH MCHC RDW Plt Count MPV Neut # (Auto) Lymph # (Auto) [place] # (Auto) Eos # (Auto) Baso # (Auto) Absolute Nucleated RBC Nucleated RBC % Sodium Potassium Chloride Carbon Dioxide Anion Gap BUN Creatinine Estimated GFR (MDRD) Glucose Calcium Total Bilirubin AST ALT Alkaline Phosphatase Total Creatine Kinase 62 Total Protein Albumin Globulin Albumin/Globulin Ratio Lipase Urine Color Urine Clarity Urine pH Ur Specific [place] Urine Protein Urine Glucose (UA) Urine Ketones Urine Occult Blood Urine Nitrite Urine Bilirubin Urine Urobilinogen Ur Leukocyte Esterase Urine RBC Urine WBC Ur Squamous Epith Cells Amorphous Sediment Urine Bacteria Ur Microscopic Review Urine Culture Comments Urine HCG, Qual - Rads (name of study) CT abdomen pelvis Radiology: Final report received, EMP read contemporaneously, See rad report PD MEDICAL DECISION MAKING - ED course Complexity details: reviewed old records, reviewed results, re-evaluated patient, considered differential, d/w patient ED course: No acute findings on CT scan of the abdomen pelvis. Unclear etiology of her symptoms. Possible that she passed a small ureteral stone that is too small to see on CT scan? No evidence of UTI. Pain well controlled in the emergency department with IV lidocaine and IV acetaminophen. Patient is no longer having any pain. Recommend that she follow-up with her PCP for further care. They may want to see a urologist as well if her symptoms persist. Patient counseled regarding signs and symptoms for which I believe and urgent re-evaluation would be necessary. Patient with good understanding of and agreement to plan and is comfortable going home at this time This document was made in part using voice recognition software. While efforts are made to proofread this document, sound alike and grammatical errors may occur. Departure - Departure Disposition: 01 Home, Self Care Clinical Impression: Abdominal pain Qualifiers: Abdominal location: unspecified location Qualified Code(s): R10.9 - Unspecified abdominal pain Hematuria Qualifiers: Hematuria type: unspecified type Qualified Code(s): R31.9 - Hematuria, un specified Condition: Good Instructions: ED Abdominal Pain Female Non-Specific Abdominal Pain, ED Hematuria Follow-Up: TELMA MICHELLE ARNP [Primary Care Provider] - Within 1 week [facility] [Provider Group] Prescriptions: Meloxicam [Mobic] 7.5 mg PO BID PRN #20 tablet PRN Reason: Pain Comments: The cause of your symptoms is unclear. Please follow-up with your doctor for further care. Return if you worsen. You may want to see a urologist if you c ontinue to have blood in your urine. Your CT scan and laboratory testing did not show any acute abnormalities tonight. Your prescription was sent to the [facility]. Discharge Date/Time: 07/08/22 19:31
--- NOTE | 2022-07-08 17:57 | CT Report ---
PROCEDURE: CT abdomen pelvis with contrast INDICATIONS: hematuria x 2 weeks CONTRAST: IV CONTRAST: Optiray 320 ml: 100 PO CONTRAST: *NO PO CONTRAST TECHNIQUE: After the administration of contrast, 5 mm thick sections acquired from the diaphragms to the sym physis. 5 mm thick coronal and sagittal reformats were acquired. For radiation dose reduction, the following was used: automated exposure control, adjustment of mA and/or kV according to patient size . COMPARISON: None. FINDINGS: Image quality: Excellent. ABDOMEN: Lung bases: Lung bases are clear. Heart size is normal. Solid organs: Liver and spleen are normal in size and enhancement. Gallbladder unremarkable Biliar y system is non dilated. Pancreas enhances normally. No adrenal nodules. Kidneys demonstrate deanne l size and enhancement, without hydronephrosis. Subcentimeter right hepatic hypodensity, likely cyst Peritoneum and bowel: Bowel loops demonstrate normal wall thickness and caliber. No free fluid or a ir. Nodes and vessels: No retroperitoneal or mesenteric adenopathy by size criteria. Aorta and inferior vena cava are normal in size. Miscellaneous: No ventral hernias. PELVIS: Genitourinary: Bladder wall thickness is normal. Miscellaneous: No inguinal hernias or adenopathy. Bones: No suspicious bony lesions. No vertebral body compression fractures. IMPRESSION: 1. No acute CT findings in the abdomen and pelvis. 2. Small subcentimeter hypodensity liver, probably reflects cyst Reviewed by: Sourav Moraes MD on 07/08/2022 4:55 PM AKDT Approved by: Sourav Moraes MD on 07/08/2022 4:55 PM AKDT Station ID: [id number]
[2022-07-08 19:31] VITALS: BP 108/80
== END 2022-07-08 19:31 | disposition home or self-care (01) ==
LOC: ED 12:51
DX: R10.9 Unspecified abdominal pain (principal); R31.9 Hematuria, unspecified
CPT/HCPCS: 36415; 74177; 80053; 81001; 81025; 82550; 83690; 85025; 96365; 96375; 99282; 99284; J0131; J7040; Q9967; 81003; 87086

== ENCOUNTER 2023-01-24 08:00 | Outpatient (CLI) | payer OTHER ==
[2023-01-24 15:52] LABS: BILIRUBIN,URINE NEGATIVE (NEGATIVE); GLUCOSE, URINE (UA) NEGATIVE (NEGATIVE); KETONES,URINE (UA) 15 mg/dL (NEGATIVE); LEUKOCYTE ESTERASE, URINE SMALL (NEGATIVE); NITRITE,URINE NEGATIVE (NEGATIVE); OCCULT BLOOD,URINE TRACE-INTA (NEGATIVE); PROTEIN,URINE NEGATIVE (NEGATIVE); UROBILINOGEN,URINE 0.2 (NORMAL) E.U./dL (NORMAL)
[2023-01-24 15:53] LABS: CLARITY,URINE HAZY (CLEAR)
[2023-01-24 16:09] LABS: BACTERIA,URINE Many /HPF (None Seen); RBC,URINE 0-5 /HPF (0-5); SQUAMOUS EPITHELIAL CELL,UR MANY Squamous (<= Few)
== END 2023-01-24 23:59 | disposition home or self-care (01) ==
LOC: LAB 08:00
PROVIDERS: ATTEND Nurse Practitioner
DX: Z34.90 Encounter for supervision of normal pregnancy, unspecified, unspecified trimester (principal)
CPT/HCPCS: 81001; 87086

== ENCOUNTER 2023-01-31 13:47 | Emergency (ER) | payer OTHER ==
[2023-01-31] MEDS ORDERED: SODIUM CHLORIDE 0.9% 1,000 ML IV STA ×2 (14:07)
--- NOTE | 2023-01-31 14:10 | ED Physician Documentation ---
History of Present Illness - Stated complaint Stated Complaint: LIGHTHEADED/DIZZY - Chief complaint Chief Complaint: Abd Pain - History obtained from History obtained from: Patient - History of Present Illness Pain level max: 0 Pain level now: 0 - Additonal information Additional information: Patient is a 22-year-old female who presents to the emergency department with nausea and vomiting x1 week. She is approximately 7 weeks . G1, P0. No vaginal bleeding or discharge. She is on Phenergan for nausea at home, which she states helps but is still having difficulty keeping fluids down. No pain. No fevers. No chills. No diarrhea. No recent illness. Patient states that she feels lightheaded when standing and is concerned about dehydration. No urinary symptoms. Review of Systems Constitutional: denies: Fever, Chills Respiratory: denies: Cough GI: reports: Nausea, Vomiting. 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 HEENT: None Psych: Depression, Anxiety, Post traumatic stress disorder Musculoskeletal: None Derm: None - Past Surgical History Past Surgical History: No - Present Medications Home Medications: Ambulatory Orders Medication Instructions Recorded Confirmed Folic Acid 1 mg PO DAILY 01/31/23 01/31/23 Metoclopramide [Reglan] 5 mg PO Q6H PRN 01/31/23 01/31/23 Metoclopramide [Reglan] 10 mg PO Q6H PRN #20 tablet 01/31/23 Ondansetron Odt [Zofran] 4 mg TL Q6H PRN #10 tablet 01/31/23 Promethazine HCl [Promethegan] 25 mg [place] Q6HR PRN 01/31/23 01/31/23 - Allergies Allergies/Adverse Reactions: Allergies Allergy/AdvReac Type Severity Reaction Status Date / Time No Known Drug Allergies Allergy Verified 01/31/23 13:55 - Social History Does the pt smoke?: No Smoking Status: Never smoker Does the pt drink ETOH?: No Does the pt have substance abuse?: No - Immunizations Immunizations are current?: No - POLST Patient has POLST: No PD ED PE NORMAL - Vitals Vital signs reviewed: Yes - General General: Alert and oriented X 3, No acute distress - HEENT HEENT: Moist mucous membranes - Neck Neck: Supple, no meningeal sign - Cardiac Cardiac: RRR, Strong equal pulses - Respiratory Respiratory: No respiratory distress, Clear bilaterally - Abdomen Abdomen: Normal bowel sounds, Soft, Non tender, Non distended - Derm Derm: Warm and dry, No rash - Extremities Extremities: No edema - Neuro Neuro: Alert and oriented X 3 - Psych Psych: Normal mood, Normal affect Results - Vitals Vitals: Vital Signs - 24 hr 01/31/23 01/31/23 13:50 16:11 Temperature 36.7 C 37.0 C Heart Rate 88 95 Respiratory 16 18 Rate Blood Pressure 128/80 114/70 O2 Saturation 98 100 Oxygen O2 Source Room air - Labs Labs: Laboratory Tests 01/31/23 01/31/23 01/31/23 14:14 14:14 15:15 WBC 10.0 RBC 4.90 Hgb 13.1 Hct 39.7 MCV 81.0 MCH 26.7 L MCHC 33.0 RDW 14.9 Plt Count 276 MPV 10.0 Neut # (Auto) 7.0 H Lymph # (Auto) 2.2 [place] # (Auto) 0.7 Eos # (Auto) 0.1 Baso # (Auto) 0.0 Absolute Nucleated RBC 0.00 Nucleated RBC % 0.0 Sodium 137 Potassium 3.8 Chloride 105 Carbon Dioxide 22 Anion Gap 10.0 BUN 13 Creatinine 0.6 Estimated GFR (MDRD) 126 Glucose 80 Calcium 9.3 Total Bilirubin 0.4 AST 16 ALT 16 Alkaline Phosphatase 49 Total Protein 7.4 Albumin 4.0 Globulin 3.4 Albumin/Globulin Ratio 1.2 Lipase 52 H Urine Color YELLOW Urine Clarity CLEAR Urine pH 6.5 Ur Specific [place] 1.020 Urine Protein NEGATIVE Urine Glucose (UA) NEGATIVE Urine Ketones >=80 H Urine Occult Blood TRACE-INTA Urine Nitrite NEGATIVE Urine Bilirubin NEGATIVE Urine Urobilinogen 0.2 (NORMAL) Ur Leukocyte Esterase NEGATIVE Ur Microscopic Review NOT INDICATED Urine Culture Comments NOT INDICATED PD Medical Decision Making - ED course Complexity details: reviewed results, re-evaluated patient, considered di fferential, d/w patient ED course: Patient was given 2 L of IV fluid. Lightheadedness and dizziness resolved. CBC does not show any acute abnormalities. Chemistry does not show any acute abnormalities either. Urinalysis is normal other than dehydration. She is on Phenergan at home, we will trial her on Zofran and Reglan. Tolerating p.o. without difficulty here. Patient request to go home at this time. Patient counseled regarding signs and symptoms for which I believe and urgent re- evaluation would be necessary. Patient with good understanding of and agreement to plan and is comfortable going home at this time This document was made in part using voice recognition software. While efforts are made to proofread this document, sound alike and grammatical errors may occur. Departure - Departure Disposition: 01 Home, Self Care Clinical Impression: Dehydration, Vomiting affecting Condition: Good Instructions: ED Preg Morning Sickness Follow-Up: Gifty Ashford ARNP [Provider Admit Priv/Credential] - Within 1 week Prescriptions: Metoclopramide [Reglan] 10 mg PO Q6H PRN #20 tablet PRN Reason: Nausea / Vomiting Ondansetron Odt [Zofran] 4 mg TL Q6H PRN #10 tablet PRN Reason: Nausea / Vomiting Comments: Your prescriptions were sent to [facility] in [place]. Please follow-up with your doctor for further care. Please return if you worsen. Please do not take the metoclopramide and promethazine together. You can try 1 or the other. Discharge Date/Time: 01/31/23 16:18
[2023-01-31 14:20] LABS: BASOPHILS % (AUTO) 0.4 %; EOSINOPHILS # (AUTO) 0.1 10^3/uL (0.0-0.7); HCT - HEMATOCRIT 39.7 % (37.0-47.0); HGB - HEMOGLOBIN 13.1 g/dL (12.0-16.0); LYMPHOCYTES # (AUTO) 2.2 10^3/uL (1.5-3.5); LYMPHOCYTES % (AUTO) 22.4 %; MEAN CORPUSCULAR HEMOGLOBIN 26.7 pg (27.0-31.0); MONOCYTES # (AUTO) 0.7 10^3/uL (0.0-1.0); MONOCYTES % (AUTO) 6.5 %; NEUTROPHILS % (AUTO) 69.4 %; PLT - PLATELET COUNT 276 10^3/uL (130-450); RED CELL DISTRIBUTION WIDTH 14.9 % (12.0-15.0)
[2023-01-31 14:34] LABS: ALBUMIN/GLOBULIN RATIO 1.2 (1.0-2.2); BILIRUBIN,TOTAL 0.4 mg/dL (0.2-1.0); CALCIUM 9.3 mg/dL (8.5-10.3); CREATININE 0.6 mg/dL (0.4-1.0); POTASSIUM 3.8 mmol/L (3.5-5.0); TOTAL PROTEIN 7.4 g/dL (6.7-8.2)
[2023-01-31 15:24] LABS: BILIRUBIN,URINE NEGATIVE (NEGATIVE); GLUCOSE, URINE (UA) NEGATIVE (NEGATIVE); KETONES,URINE (UA) >=80 mg/dL (NEGATIVE); LEUKOCYTE ESTERASE, URINE NEGATIVE (NEGATIVE); NITRITE,URINE NEGATIVE (NEGATIVE); OCCULT BLOOD,URINE TRACE-INTA (NEGATIVE); PH,URINE 6.5 PH (5.0-7.5); PROTEIN,URINE NEGATIVE (NEGATIVE); UROBILINOGEN,URINE 0.2 (NORMAL) E.U./dL (NORMAL)
[2023-01-31 15:26] LABS: CLARITY,URINE CLEAR (CLEAR)
[2023-01-31 16:12] VITALS: BP 114/70
== END 2023-01-31 16:18 | disposition home or self-care (01) ==
LOC: ED 13:47
DX: O21.9 Vomiting of pregnancy, unspecified (principal); Z3A.01 Less than 8 weeks gestation of pregnancy; O26.891 Other specified pregnancy related conditions, first trimester; E86.0 Dehydration
CPT/HCPCS: 36415; 80053; 81001; 81003; 83690; 85025; 87086; 96360; 99283

== ENCOUNTER 2023-02-04 15:50 | Outpatient (CLI) | payer OTHER ==
[2023-02-04 16:10] LABS: BASOPHILS # (AUTO) 0.1 10^3/uL (0.0-0.1); BASOPHILS % (AUTO) 0.5 %; EOSINOPHILS # (AUTO) 0.1 10^3/uL (0.0-0.7); EOSINOPHILS % (AUTO) 0.9 %; HCT - HEMATOCRIT 39.9 % (37.0-47.0); LYMPHOCYTES % (AUTO) 19.2 %; MEAN CORPUSCULAR HEMOGLOBIN 26.6 pg (27.0-31.0); MEAN CORPUSCULAR HGB CONC 32.6 g/dL (32.0-36.0); MEAN CORPUSCULAR VOLUME 81.8 fL (81.0-99.0); MEAN PLATELET VOLUME 10.2 fL (7.9-10.8); MONOCYTES # (AUTO) 0.6 10^3/uL (0.0-1.0); MONOCYTES % (AUTO) 5.7 %; NEUTROPHILS # (AUTO) 7.8 10^3/uL (1.5-6.6); NEUTROPHILS % (AUTO) 73.4 %; PLT - PLATELET COUNT 339 10^3/uL (130-450); RED BLOOD COUNT 4.88 10^6/uL (4.20-5.40); WHITE BLOOD COUNT 10.6 x10^3/uL (4.8-10.8)
[2023-02-04 16:18] LABS: ALBUMIN 4.2 g/dL (3.2-5.5); ALBUMIN/GLOBULIN RATIO 1.2 (1.0-2.2); BILIRUBIN,TOTAL 0.5 mg/dL (0.2-1.0); CALCIUM 9.4 mg/dL (8.5-10.3); CREATININE 0.6 mg/dL (0.4-1.0); POTASSIUM 3.9 mmol/L (3.5-5.0); TOTAL PROTEIN 7.6 g/dL (6.7-8.2)
[2023-02-05 04:09] LABS: RPR Non Reactive (Non Reactive)
[2023-02-05 06:10] LABS: HBsAG SCREEN Negative (Negative)
[2023-02-05 07:10] LABS: VARICELLA-ZOSTER AB IGG <135 index (Immune >165)
[2023-02-05 08:10] LABS: HCV AB Non Reactive (Non Reactive); HIV SCREEN 4TH GENERATION Non Reactive (Non Reactive)
== END 2023-02-04 15:51 | disposition home or self-care (01) ==
LOC: LAB 15:50
PROVIDERS: ATTEND Nurse Practitioner
DX: O21.9 Vomiting of pregnancy, unspecified (principal)
CPT/HCPCS: 36415; 80053; 85025; 86592; 86762; 86787; 86803; 86850; 86900; 86901; 87340; 87389

== ENCOUNTER 2023-02-04 16:03 | Emergency (ER) | payer OTHER ==
[2023-02-04] MEDS ORDERED: SODIUM CHLORIDE 0.9% 1,000 ML IV STA (17:16)
[2023-02-04] MEDS ORDERED: LACTATED RINGERS 1,000 ML IV STA (17:16)
[2023-02-04] MEDS ORDERED: THIAMINE INJ 100 MG in SODIUM CHLORIDE 0.9% 50 ML IV STA (17:16)
[2023-02-04] MEDS ORDERED: METOCLOPRAMIDE 10 MG/2 ML VIAL IVP STA (17:24)
--- NOTE | 2023-02-04 17:25 | ED Physician Documentation ---
PD HPI ABD PAIN - Stated complaint Stated Complaint: DEHYDRATED - Chief complaint Chief Complaint: Abd Pain - History obtained from History obtained from: Patient - Additional information Additional information: G1 at 8 weeks has had a lot of problems with vomiting in this . Saw my partner for hyperemesis about 4 days ago and did feel better going home. She has nausea medicines at home but is too nauseous to take them. She has mild cramping with this. She has chronic constipation which is unchanged. 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 HEENT: None Psych: Depression, Anxiety, Post traumatic stress disorder Musculoskeletal: None Derm: None - Past Surgical History Past Surgical History: No - Present Medications Home Medications: Ambulatory Orders Medication Instructions Recorded Confirmed Folic Acid 1 mg PO DAILY 01/31/23 02/04/23 Metoclopramide [Reglan] 5 mg PO Q6H PRN 01/31/23 02/04/23 Metoclopramide [Reglan] 10 mg PO Q6H PRN #20 tablet 01/31/23 02/04/23 Ondansetron Odt [Zofran] 4 mg TL Q6H PRN #10 tablet 01/31/23 02/04/23 Promethazine HCl [Promethegan] 25 mg [place] Q6HR PRN 01/31/23 02/04/23 - Allergies Allergies/Adverse Reactions: Allergies Allergy/AdvReac Type Severity Reaction Status Date / Time No Known Drug Allergies Allergy Verified 02/04/23 16:28 - Social History Does the pt smoke?: No Smoking Status: Never smoker Does the pt drink ETOH?: No Does the pt have substance abuse?: No - Immunizations Immunizations are current?: No - POLST Patient has POLST: No PD ED PE NORMAL - Vitals Vital signs reviewed: Yes - General General: Alert and oriented X 3, No acute distress - HEENT HEENT: Other (Tacky mucous membranes) - Abdomen Abdomen: Soft, Non tender - Neuro Neuro: Alert and oriented X 3 Results - Vitals Vitals: Vital Signs - 24 hr 02/04/23 02/04/23 16:24 18:09 Temperature 36.8 C Heart Rate 79 95 Respiratory 16 18 Rate Blood Pressure 105/68 111/50 L O2 Saturation 100 99 Oxygen O2 Source Room air - Labs Labs: Laboratory Tests 02/04/23 17:25 Sodium 136 Potassium 4.1 Chloride 104 Carbon Dioxide 22 Anion Gap 10.0 BUN 11 Creatinine 0.7 Estimated GFR (MDRD) 106 Glucose 82 Calcium 9.2 Magnesium 1.8 PD Medical Decision Making - ED course ED course: 22-year-old woman with hyperemesis gravidarum. Normal CMP and electrolytes. Feeling better after 2 L of IV fluid and Reglan and requesting discharge. She has meds at home. Departure - Departure Disposition: 01 Home, Self Care Clinical Impression: Vomiting affecting , Dehydration Condition: Good Record reviewed to determine appropriate education?: Yes Instructions: ED Preg Morning Sickness Comments: Follow-up with your nurse practitioner next week as scheduled. Return for new or worsening symptoms.
[2023-02-04 17:44] LABS: CALCIUM 9.2 mg/dL (8.5-10.3); CREATININE 0.7 mg/dL (0.4-1.0); MAGNESIUM 1.8 mg/dL (1.7-2.8); POTASSIUM 4.1 mmol/L (3.5-5.0)
[2023-02-04 21:06] VITALS: BP 100/60
== END 2023-02-04 19:34 | disposition home or self-care (01) ==
LOC: ED 16:03
DX: O21.1 Hyperemesis gravidarum with metabolic disturbance (principal); Z3A.08 8 weeks gestation of pregnancy
CPT/HCPCS: 36415; 80048; 80053; 83735; 85025; 86592; 86762; 86787; 86803; 86850; 86900; 86901; 87340; 87389; 96365; 96375; 99283; 99284; J2765; J3411; J7040; J7120

== ENCOUNTER 2023-02-12 14:58 | Outpatient (CLI) | payer OTHER ==
--- NOTE | 2023-02-13 16:51 | Ultrasound Report ---
PROCEDURE: OB First Trimester INDICATIONS: POSTITIVE TEST OUTSIDE/PRIOR DATING DATA: Last menstrual period (LMP): 11/25/2022. LMP-based estimated date of delivery (BASHIR): 09/01/2023. First dating scan (date and location): 02/12/2023. Estimated date of delivery (BASHIR) from first dating scan: 09/17/2023. The below data below was generated using the working BASHIR of 09/17/2023 TECHNIQUE: Real-time scanning was performed of the fetus and maternal pelvic organs, with image documentation. COMPARISON: None FINDINGS: Embryo: Hutchins-rump length measures 2.32 cm corresponding with a 9 week 0 day gestation. Normal yolk sac present. No perigestational bleed. Heart rate: 171 Measurement variability in dating: +/- 4 weeks by LMP, +/- 7 days by mean sac diameter (use before 6 weeks gestation if crown-rump length not able to be measured), +/- 5 days by crown-rump length (6-12 weeks gestation). Maternal organs: Small right ovarian corpus ligament cyst. Otherwise both ovaries unremarkable. No a dnexal mass.. IMPRESSION: Single live intrauterine consistent with 19 week 0 day gestation Reviewed by: Sourav Moraes MD on 02/13/2023 3:50 PM AKRAMA Approved by: Sourav Moraes MD on 02/13/2023 3:50 PM AKDT Station ID: [id number]
== END 2023-02-12 14:59 | disposition home or self-care (01) ==
LOC: DI 14:58
PROVIDERS: ATTEND Nurse Practitioner
DX: Z34.92 Encounter for supervision of normal pregnancy, unspecified, second trimester (principal)

== ENCOUNTER 2023-02-14 08:00 | Outpatient (CLI) | payer OTHER ==
[2023-02-14 22:05] LABS: CHLAMYDIA TRACHOMATIS DNA NEGATIVE (NEGATIVE); NEISSERIA GONORRHOEAE DNA NEGATIVE (NEGATIVE); TRICHOMONAS VAGINALIS DNA NEGATIVE (NEGATIVE)
== END 2023-02-14 23:59 | disposition home or self-care (01) ==
LOC: LAB.WC 08:00
PROVIDERS: ATTEND Nurse Practitioner
DX: Z11.3 Encounter for screening for infections with a predominantly sexual mode of transmission (principal)
CPT/HCPCS: 87491; 87591; 87661

== ENCOUNTER 2023-02-22 13:02 | Outpatient (CLI) | payer OTHER ==
[2023-02-22 13:22] VITALS: BP 104/57
[2023-02-22] MEDS ORDERED: DEXTROSE 5%-LACTATED RINGERS 1,000 ML IV SCH (14:00)
--- NOTE | 2023-02-22 22:21 | PROVIDER PROGRESS NOTE ---
- HPI Chief Complaint: Hyperemesis Current : Current EDU 09/16/23 Gestation 10 Weeks and 4 Days 1 Para 0 Vital Signs Temperature 98.2 F 02/22/23 13:19 Heart Rate 87 02/22/23 13:19 Respiratory Rate 16 02/22/23 13:19 Blood Pressure 104/57 L 02/22/23 13:19 Temperature 98.2 F 02/22/23 13:19 Heart Rate 87 02/22/23 13:19 Respiratory Rate 16 02/22/23 13:19 Blood Pressure 104/57 L 02/22/23 13:19 O2 Saturation If not protocol: Oxygen Flow, liters/minute - Procedures NST Procedure: NST Procedure Patient States Movement n/a d/t gestational age - Plan Plan: 22yo at 10.3w presenting to [facility] for scheduled IV fluids for nausea and vomiting of . Tolerated well. Follow up as scheduled.
== END 2023-02-22 14:39 | disposition home or self-care (01) ==
LOC: WFO 13:02 → FBP 13:03 → WFO 14:39
PROVIDERS: ATTEND Obstetrics & Gynecology
DX: O21.8 Other vomiting complicating pregnancy (principal); Z3A.10 10 weeks gestation of pregnancy
CPT/HCPCS: 96360

== ENCOUNTER 2023-02-28 12:51 | Outpatient (CLI) | payer OTHER ==
[2023-02-28] MEDS ORDERED: DEXTROSE 5%-LACTATED RINGERS 1,000 ML IV SCH (13:00)
[2023-02-28 13:08] VITALS: BP 104/63
== END 2023-02-28 14:55 | disposition home or self-care (01) ==
LOC: WFO 12:51 → FBP 12:52 → WFO 14:55
PROVIDERS: ATTEND Obstetrics & Gynecology
DX: O21.9 Vomiting of pregnancy, unspecified (principal); O99.280 Endocrine, nutritional and metabolic diseases complicating pregnancy, unspecified trimester; E86.0 Dehydration; Z3A.00 Weeks of gestation of pregnancy not specified
CPT/HCPCS: 96360

== ENCOUNTER 2023-03-07 13:24 | Outpatient (CLI) | payer OTHER ==
[2023-03-07] MEDS ORDERED: DEXTROSE 5%-LACTATED RINGERS 1,000 ML IV SCH (13:32)
[2023-03-07 14:26] VITALS: BP 97/52
--- NOTE | 2023-03-07 20:36 | PROVIDER PROGRESS NOTE ---
Subjective - Prog Note Date Prog Note Date: 03/07/23 Objective - Vital Signs/Intake & Output Vital Signs: Vital Signs x48h Temp Pulse Pulse Resp BP 03/07/23 14:19 98.1 F 73 73 14 97/52 L Intake & Output: Intake & Output 03/04/23 03/05/23 03/06/23 03/07/23 23:59 23:59 23:59 23:59 Intake Total 1000 Balance 1000 Assessment/Plan - Problem List (2) Vomiting affecting Impression: 22yo at 12.2w presents for scheduled IVF for n/v of and dehydration
== END 2023-03-07 15:40 | disposition home or self-care (01) ==
LOC: WFO 13:24 → FBP 13:26 → WFO 15:40
PROVIDERS: ATTEND Obstetrics & Gynecology
DX: O21.9 Vomiting of pregnancy, unspecified (principal); O99.281 Endocrine, nutritional and metabolic diseases complicating pregnancy, first trimester; E86.0 Dehydration; Z3A.12 12 weeks gestation of pregnancy
CPT/HCPCS: 96360

== ENCOUNTER 2023-04-10 08:00 | Outpatient (CLI) | payer OTHER ==
[2023-04-11 20:44] LABS: BACTERIAL VAGINOSIS DNA NEGATIVE (NEGATIVE); CANDIDA GLABRATA DNA NEGATIVE (NEGATIVE); CANDIDA GROUP DNA NEGATIVE (NEGATIVE); CANDIDA KRUSEI DNA NEGATIVE (NEGATIVE); TRICHOMONAS VAGINALIS DNA NEGATIVE (NEGATIVE)
== END 2023-04-10 23:59 | disposition home or self-care (01) ==
LOC: LAB.WC 08:00
PROVIDERS: ATTEND Obstetrics & Gynecology
DX: N89.8 Other specified noninflammatory disorders of vagina (principal)
CPT/HCPCS: 81514; 87661; 87801

== ENCOUNTER 2023-04-10 16:43 | Outpatient (CLI) | payer OTHER | END 2023-04-10 16:44 | disposition home or self-care (01) | LOC: LAB 16:43 | PROVIDERS: ATTEND Obstetrics & Gynecology | DX: Z53.9 Procedure and treatment not carried out, unspecified reason (principal) | CPT/HCPCS: 81220; 81511 ==

== ENCOUNTER 2023-06-17 13:20 | Outpatient (CLI) | payer OTHER ==
[2023-06-17 14:42] LABS: HCT - HEMATOCRIT 31.3 % (37.0-47.0); HGB - HEMOGLOBIN 10.1 g/dL (12.0-16.0); MEAN CORPUSCULAR HEMOGLOBIN 27.4 pg (27.0-31.0); MEAN CORPUSCULAR HGB CONC 32.3 g/dL (32.0-36.0); MEAN CORPUSCULAR VOLUME 84.8 fL (81.0-99.0); MEAN PLATELET VOLUME 9.5 fL (7.9-10.8); RED BLOOD COUNT 3.69 10^6/uL (4.20-5.40); RED CELL DISTRIBUTION WIDTH 13.4 % (12.0-15.0); WHITE BLOOD COUNT 9.9 x10^3/uL (4.8-10.8)
== END 2023-06-17 13:21 | disposition home or self-care (01) ==
LOC: LAB 13:20
PROVIDERS: ATTEND Nurse Practitioner
DX: O36.0920 Maternal care for other rhesus isoimmunization, second trimester, not applicable or unspecified (principal)
CPT/HCPCS: 36415; 82950; 85027; 86850

== ENCOUNTER 2023-07-13 12:02 | Emergency (ER) | payer OTHER ==
[2023-07-13 12:23] LABS: BASOPHILS # (AUTO) 0.1 10^3/uL (0.0-0.1); BASOPHILS % (AUTO) 0.5 %; EOSINOPHILS # (AUTO) 0.2 10^3/uL (0.0-0.7); EOSINOPHILS % (AUTO) 1.6 %; HCT - HEMATOCRIT 30.5 % (37.0-47.0); HGB - HEMOGLOBIN 9.8 g/dL (12.0-16.0); LYMPHOCYTES % (AUTO) 18.4 %; MEAN CORPUSCULAR HEMOGLOBIN 26.7 pg (27.0-31.0); MEAN CORPUSCULAR HGB CONC 32.1 g/dL (32.0-36.0); MEAN CORPUSCULAR VOLUME 83.1 fL (81.0-99.0); MEAN PLATELET VOLUME 9.8 fL (7.9-10.8); MONOCYTES # (AUTO) 0.7 10^3/uL (0.0-1.0); MONOCYTES % (AUTO) 6.1 %; NEUTROPHILS # (AUTO) 7.9 10^3/uL (1.5-6.6); NEUTROPHILS % (AUTO) 72.4 %; PLT - PLATELET COUNT 301 10^3/uL (130-450); RED BLOOD COUNT 3.67 10^6/uL (4.20-5.40); RED CELL DISTRIBUTION WIDTH 13.8 % (12.0-15.0)
[2023-07-13 12:37] LABS: ALBUMIN 3.6 g/dL (3.2-5.5); ALBUMIN/GLOBULIN RATIO 1.2 (1.0-2.2); BILIRUBIN,TOTAL 0.3 mg/dL (0.2-1.0); CALCIUM 9.1 mg/dL (8.5-10.3); CREATININE 0.6 mg/dL (0.6-1.3); POTASSIUM 3.9 mmol/L (3.5-4.5); TOTAL PROTEIN 6.6 g/dL (6.4-8.9)
[2023-07-13 12:45] LABS: BILIRUBIN,URINE NEGATIVE (NEGATIVE); CLARITY,URINE CLEAR (CLEAR); GLUCOSE, URINE (UA) NEGATIVE (NEGATIVE); KETONES,URINE (UA) NEGATIVE (NEGATIVE); LEUKOCYTE ESTERASE, URINE NEGATIVE (NEGATIVE); NITRITE,URINE NEGATIVE (NEGATIVE); OCCULT BLOOD,URINE NEGATIVE (NEGATIVE); PROTEIN,URINE NEGATIVE (NEGATIVE); UROBILINOGEN,URINE 0.2 (NORMAL) E.U./dL (NORMAL)
--- NOTE | 2023-07-13 14:46 | ED Physician Documentation ---
History of Present Illness - Stated complaint Stated Complaint: NAUSEA,VOMITING - Chief complaint Chief Complaint: Abd Pain - Additonal information Additional information: 22-year-old female who is G1, P0 30 weeks presents emergency department for evaluation of nausea vomiting and diarrhea. She had multiple episodes this morning that have self resolved. Now able to keep liquids down. She reports that she went to a friend's house last night and had Sonja cheese steak sandwiches. She and her are concerned about Listeria or food poisoning. Patient denies loss of fluids or vaginal bleeding. Continues to have movement and kick. She is followed by our women's health clinic. Review of Systems Constitutional: denies: Fever Cardiac: reports: Reviewed and negative Respiratory: reports: Reviewed and negative GI: reports: Nausea, Vomiting, Diarrhea : reports: Reviewed and negative Skin: reports: Reviewed and negative PD PAST MEDICAL HISTORY - Past Medical History Cardiovascular: None Respiratory: None Neuro: None Endocrine/Autoimmune: None GI: Other IN HOUSE CRA: None : None HEENT: None Psych: Depression, Anxiety, Post traumatic stress disorder Musculoskeletal: None Derm: None - Past Surgical History Past Surgical History: No - Present Medications Home Medications: Ambulatory Orders Medication Instructions Recorded Confirmed Folic Acid 1 mg PO DAILY 01/31/23 07/13/23 buPROPion [Wellbutrin Xl] 150 mg PO DAILY 07/13/23 07/13/23 - Allergies Allergies/Adverse Reactions: Allergies Allergy/AdvReac Type Severity Reaction Status Date / Time No Known Drug Allergies Allergy Verified 02/04/23 16:28 - Social History Does the pt smoke?: No Smoking Status: Never smoker Does the pt drink ETOH?: No Does the pt have substance abuse?: No - Immunizations Immunizations are current?: No - POLST Patient has POLST: No PD ED PE NORMAL - General General: Alert and oriented X 3, No acute distress - HEENT HEENT: PERRL - Neck Neck: Supple, no meningeal sign, No adenopathy - Cardiac Cardiac: RRR, No murmur - Respiratory Respiratory: No respiratory distress, Clear bilaterally - Abdomen Abdomen: Normal bowel sounds, Soft, Non tender, Other (Gravid uterus 5 cm above the umbilicus.) - Derm Derm: Warm and dry - Extremities Extremities: No deformity - Neuro Neuro: Alert and oriented X 3 Eye Opening: Spontaneous Motor: Obeys Commands Verbal: Oriented GCS Score: 15 Results - Vitals Vitals: Vital Signs - 24 hr 07/13/23 07/13/23 12:07 14:41 Temperature 36.8 C Heart Rate 71 89 Respiratory 16 18 Rate Blood Pressure 113/62 96/49 L O2 Saturation 97 100 Oxygen O2 Source Room air - Labs Labs: Laboratory Tests 07/13/23 07/13/23 07/13/23 12:18 12:18 12:38 WBC 11.0 H RBC 3.67 L Hgb 9.8 L Hct 30.5 L MCV 83.1 MCH 26.7 L MCHC 32.1 RDW 13.8 Plt Count 301 MPV 9.8 Neut # (Auto) 7.9 H Lymph # (Auto) 2.0 [place] # (Auto) 0.7 Eos # (Auto) 0.2 Baso # (Auto) 0.1 Absolute Nucleated RBC 0.00 Nucleated RBC % 0.0 Sodium 135 Potassium 3.9 Chloride 104 Carbon Dioxide 24 Anion Gap 7.0 BUN 6 Creatinine 0.6 Estimated GFR (MDRD) 126 Glucose 91 Calcium 9.1 Total Bilirubin 0.3 AST 11 ALT 6 L Alkaline Phosphatase 74 Total Protein 6.6 Albumin 3.6 Globulin 3.0 Albumin/Globulin Ratio 1.2 Lipase 29 Urine Color STRAW Urine Clarity CLEAR Urine pH 7.0 Ur Specific [place] <=1.005 Urine Protein NEGATIVE Urine Glucose (UA) NEGATIVE Urine Ketones NEGATIVE Urine Occult Blood NEGATIVE Urine Nitrite NEGATIVE Urine Bilirubin NEGATIVE Urine Urobilinogen 0.2 (NORMAL) Ur Leukocyte Esterase NEGATIVE Ur Microscopic Review NOT INDICATED Urine Culture Comments NOT INDICATED PD Medical Decision Making - ED course Complexity details: reviewed results, re-evaluated patient ED course: 22-year-old female approximately 30 weeks presents the emergency department for evaluation of nausea vomiting and diarrhea. She had 3-4 episodes this morning that have now fully self resolved and she is tolerating p.o.'s. She denies abdominal pain vaginal bleeding loss of fluids. She continues to have heart movement and kick as per normal. heart tones here in the emergency department were variable between 140 and 160. We did obtain CBC and electrolytes as well as urinalysis. Per my interpretation no infections are noted. Mild leukocytosis as expected in with white count of 11,000. Delusional anemia with hemoglobin of 9.8 not unexpected. Patient is concerned about food poisoning or Listeria. I feel this is less likely given the lack of fevers and abdominal pain as well as the quickly resolved symptoms. I briefly ran this case by with Dr. Bubba Edge, OB on- call. He feels patient is safe for discharge home. We do not need an NST today. As such patient is discharged in stable condition with usual emergent return precautions discussed for fevers uncontrolled vomiting diarrhea or lack of movement Departure - Departure Disposition: Home, Self Care Clinical Impression: Nausea, vomiting, and diarrhea, Third trimester at less than 36 weeks Condition: Stable Record reviewed to determine appropriate education?: Yes Comments: Milly you are seen this morning because she had vomiting and diarrhea. You are concerned that you have food poisoning or Listeria infection after eating Sonja cheese steak sandwiches last night. I am the symptoms seem to have self resolved with no treatment and this is a very reassuring sign. You do not have a fever here in the emergency department and your labs were all normal for . At this point you are okay to go home and continue your care as usual. If at any point you develop fevers, have a return of uncontrolled symptoms, develop belly pain, have loss of fluids, loss of movement or kick then please return immediately to the ER for repeat evaluation. Forms: PCP List
[2023-07-13 14:47] VITALS: BP 96/49; O2SAT 100
== END 2023-07-13 15:06 | disposition home or self-care (01) ==
LOC: ED 12:02
DX: O21.2 Late vomiting of pregnancy (principal); Z3A.30 30 weeks gestation of pregnancy; O26.893 Other specified pregnancy related conditions, third trimester; R19.7 Diarrhea, unspecified
CPT/HCPCS: 36415; 80053; 81001; 81003; 83690; 85025; 87086; 99283; 99284

== ENCOUNTER 2023-08-22 08:00 | Outpatient (CLI) | payer OTHER | END 2023-08-22 23:59 | disposition home or self-care (01) | LOC: LAB.WC 08:00 | PROVIDERS: ATTEND Obstetrics & Gynecology | DX: Z36.85 Encounter for antenatal screening for Streptococcus B (principal) | CPT/HCPCS: 87797 ==

== ENCOUNTER 2023-09-05 16:23 | Outpatient (CLI) | payer OTHER ==
[2023-09-05 16:42] LABS: BASOPHILS % (AUTO) 0.4 %; EOSINOPHILS # (AUTO) 0.1 10^3/uL (0.0-0.7); EOSINOPHILS % (AUTO) 1.1 %; HCT - HEMATOCRIT 29.2 % (37.0-47.0); LYMPHOCYTES # (AUTO) 1.9 10^3/uL (1.5-3.5); MEAN CORPUSCULAR HEMOGLOBIN 23.8 pg (27.0-31.0); MEAN CORPUSCULAR HGB CONC 30.8 g/dL (32.0-36.0); MEAN CORPUSCULAR VOLUME 77.2 fL (81.0-99.0); MEAN PLATELET VOLUME 9.2 fL (7.9-10.8); MONOCYTES # (AUTO) 0.9 10^3/uL (0.0-1.0); MONOCYTES % (AUTO) 9.5 %; NEUTROPHILS # (AUTO) 6.4 10^3/uL (1.5-6.6); NEUTROPHILS % (AUTO) 67.8 %; PLT - PLATELET COUNT 279 10^3/uL (130-450); RED BLOOD COUNT 3.78 10^6/uL (4.20-5.40); RED CELL DISTRIBUTION WIDTH 15.4 % (12.0-15.0); WHITE BLOOD COUNT 9.4 x10^3/uL (4.8-10.8)
[2023-09-05 17:06] LABS: CREATININE,URINE 152.6 mg/dL; PROTEIN/CREATININE RATIO,URINE 0.1 (<=0.2)
[2023-09-05 17:10] LABS: ALBUMIN 3.8 g/dL (3.2-5.5); ALBUMIN/GLOBULIN RATIO 1.4 (1.0-2.2); BILIRUBIN,TOTAL 0.3 mg/dL (0.2-1.0); CALCIUM 9.3 mg/dL (8.5-10.3); CREATININE 0.6 mg/dL (0.6-1.3); POTASSIUM 4.2 mmol/L (3.5-4.5); TOTAL PROTEIN 6.6 g/dL (6.4-8.9); URIC ACID 5.8 mg/dL (2.3-6.6)
== END 2023-09-05 16:24 | disposition home or self-care (01) ==
LOC: LAB 16:23
PROVIDERS: ATTEND Nurse Practitioner
DX: G44.89 Other headache syndrome (principal); R11.0 Nausea
CPT/HCPCS: 36415; 80053; 82570; 84156; 84550; 85025

== ENCOUNTER 2023-09-09 14:06 | Outpatient (CLI) | payer OTHER ==
--- NOTE | 2023-09-09 16:45 | Ultrasound Report ---
PROCEDURE: OB F/U or Repeat INDICATIONS: POOR GROWTH OUTSIDE/PRIOR DATING DATA: Last menstrual period (LMP): 11/25/2022. LMP-based estimated date of delivery (BASHIR): 09/01/2023. First dating scan (date and location): 02/12/2023. Estimated date of delivery (BASHIR) from first dating scan: 09/17/2023. The below data below was generated using the ultrasound BASHIR of 09/17/2023 TECHNIQUE: Real-time scanning was performed of the fetus, with image documentation and biometric measurements. Endovaginal scanning: Not performed. COMPARISON: 04/29/2023 FINDINGS: General: A single living intrauterine gestation is present. Presentation: Cephalic Placenta: Placental position is anterior, without previa. Amniotic fluid index: 9.1 cm, within normal limits for gestational age. heart rate: 127 beats per minute. Maternal cervical canal not visualized. biometrics: Biparietal diameter: 9.2 cm, 37 weeks 3 days, 48th percentile Head circumference: 33.1 cm, 37 weeks 5 days, 13th percentile Abdominal circumference: 32.6 m, 36 weeks 4 days, 12 percentile Femur length: 7.3 cm, 37 weeks 3 days, 21st percentile Estimated gestational age from initial scan: 38 weeks 6 days Composite gestational age from present scan: 37 weeks 2 days Estimated weight and percentile: 3085 g, 23rd percentile Measurement variability in biometric dating: +/- 10 days from 12-20 weeks gestation, +/- 2 weeks from 20-30 weeks gestation, +/- 3 weeks at 30 weeks gestation or more. Other: Not applicable. IMPRESSION: Single living intrauterine at 38 weeks 6 days, BASHIR of 09/17/2023. Estimated weight of 3085 g, 23rd percentile. KAUSHIK of 9.1 cm. Reviewed by: Ye Trejo on 09/09/2023 4:44 PM PST Approved by: Ye Trejo on 09/09/2023 4:44 PM PST Station ID: [id number]
== END 2023-09-09 14:07 | disposition home or self-care (01) ==
LOC: DI 14:06
PROVIDERS: ATTEND Obstetrics & Gynecology
DX: O36.8930 Maternal care for other specified fetal problems, third trimester, not applicable or unspecified (principal); O36.5930 Maternal care for other known or suspected poor fetal growth, third trimester, not applicable or unspecified; Z3A.38 38 weeks gestation of pregnancy

== ENCOUNTER 2023-09-13 08:04 | Inpatient (IN) | payer OTHER ==
[2023-09-13] MEDS ORDERED: ONDANSETRON ODT 4 MG TABLET TL STA (09:12)
[2023-09-13] MEDS ORDERED: OXYTOCIN 10 UNIT/ML VIAL IM PRN (09:46)
[2023-09-13] MEDS ORDERED: OXYTOCIN/SODIUM CHLORIDE 500 ML IV PRN (09:46)
[2023-09-13] MEDS ORDERED: NIFEdipine 10 MG CAPSULE PO PRN (09:46)
[2023-09-13] MEDS ORDERED: miSOPROStoL 200 MCG TABLET BC PRN (09:46)
[2023-09-13] MEDS ORDERED: METHYLERGONOVINE 0.2 MG/ML VIAL IM PRN (09:46)
[2023-09-13] MEDS ORDERED: CARBOPROST TROMETHAMINE 250 MCG/ML AMP IM PRN (09:46)
[2023-09-13] MEDS ORDERED: TRANEXAMIC ACID IN NACL 1,000 MG/100 ML BAG IV PRN (09:46)
[2023-09-13] MEDS ORDERED: TERBUTALINE 1 MG/ML VIAL SUBQ PRN (09:46)
[2023-09-13] MEDS ORDERED: lidocaine 1% 20 ML MDV ID PRN (09:46)
[2023-09-13] MEDS ORDERED: LACTATED RINGERS 1,000 ML IV PRN ×2 (09:46→20:41)
[2023-09-13] MEDS ORDERED: miSOPROStoL 200 MCG TABLET PR PRN (09:46)
[2023-09-13] MEDS ORDERED: hydrALAZINE INJ 20 MG/ML VIAL IVP PRN ×2 (09:46)
[2023-09-13] MEDS ORDERED: LABETALOL 20 MG/4 ML SYRINGE IVP PRN ×3 (09:46)
[2023-09-13] MEDS ORDERED: SODIUM CHLORIDE FLUSH 0.9% 10 ML SYRINGE IVP SCH (10:00)
[2023-09-13 10:48] LABS: BASOPHILS % (AUTO) 0.4 %; EOSINOPHILS # (AUTO) 0.1 10^3/uL (0.0-0.7); EOSINOPHILS % (AUTO) 0.9 %; HCT - HEMATOCRIT 31.3 % (37.0-47.0); HGB - HEMOGLOBIN 9.5 g/dL (12.0-16.0); LYMPHOCYTES # (AUTO) 1.5 10^3/uL (1.5-3.5); LYMPHOCYTES % (AUTO) 15.2 %; MEAN CORPUSCULAR HEMOGLOBIN 22.8 pg (27.0-31.0); MEAN CORPUSCULAR HGB CONC 30.4 g/dL (32.0-36.0); MEAN CORPUSCULAR VOLUME 75.1 fL (81.0-99.0); MONOCYTES # (AUTO) 0.7 10^3/uL (0.0-1.0); MONOCYTES % (AUTO) 6.8 %; NEUTROPHILS # (AUTO) 7.2 10^3/uL (1.5-6.6); NEUTROPHILS % (AUTO) 75.6 %; PLT - PLATELET COUNT 322 10^3/uL (130-450); RED BLOOD COUNT 4.17 10^6/uL (4.20-5.40); RED CELL DISTRIBUTION WIDTH 15.7 % (12.0-15.0); WHITE BLOOD COUNT 9.6 x10^3/uL (4.8-10.8)
--- NOTE | 2023-09-13 13:49 | HISTORY & PHYSICAL EXAMINATION ---
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, depression on welbutrin started this ) Smoking Status: Never smoker - Mother's Labs Mother's Blood Type: positive: A Mother's RH: positive: Negative GBS: positive: Group B Step Negative Rubella Status: positive: Immune - Other Maternal History Other Maternal History: Problems: Rh NEG - received rhogam 07/07 Varicella NON-immune - avoided chickenpox during this - vaccinate post Anemia of - has been on oral iron - today HgB 9.5 CF Carrier + - partner never been tested, - going to order today from in the hospital - I will order Mood is good today - FOB [place] [facility], her family is in [place] - her MIL is coming to support them, will be here on friday. Pre- Weight:159.4 BMI: 27.46 Blood type: A Negative, abs neg Antibody: negative CBC: PLT 339 HCT 39.9 HGB 13.0 RUB: immune VZV: NOT immune HBsAg: negative HepC: negative RPR/AB-EIA: negative HIV: negative PAP: never- post GC/CT: negative 02/14 HSV: denies self and partner Genetic testing: QUAD- Negative CF-Carrier Covid: initial set and 1 booster Flu: 07/07 WNL EFW 39% 3 VC Posterior placenta without previa KAUSHIK (10.7) WNL FHT: 141 50gm OGCT: 117 TDAP: 07/07/2025 Breast Pump: 07/07/23 Antibody screen: 06/17/2023 Negative 3rd trimester H/H 10.1/ 31.3 PLT 289 GBS: 10 Negative - HPI Current EDU 09/17/23 Gestation 39 Weeks and 3 Days 1 Vital Signs Temperature 98.1 F 09/13/23 08:16 Heart Rate 112 H 09/13/23 08:16 Respiratory Rate 18 09/13/23 08:16 Blood Pressure 114/72 09/13/23 08:16 Temperature 98.2 F 09/13/23 10:33 Heart Rate 81 09/13/23 10:33 Respiratory Rate 18 09/13/23 10:33 Blood Pressure 114/72 09/13/23 08:16 O2 Saturation If not protocol: Oxygen Flow, liters/minute Meds/Allgy - Home Medications Home Medications: Ambulatory Orders Medication Instructions Recorded Confirmed Folic Acid 1 mg PO DAILY 01/31/23 07/13/23 buPROPion [Wellbutrin Xl] 150 mg PO DAILY 07/13/23 07/13/23 - Allergies Allergies/Adverse Reactions: Allergies Allergy/AdvReac Type Severity Reaction Status Date / Time No Known Drug Allergies Allergy Verified 02/04/23 16:28 Physical - Abdominal Exam Vital Signs: Temp Pulse Resp BP Pulse Ox O2 Flow Rate 98.2 F 81 18 114/72 09/13/23 10:33 09/13/23 10:33 09/13/23 10:33 09/13/23 08:16 - Other Notes Labor Progress Note/Additional Text: VSS NAD Conjunctiva pink, pale sclera +S1, S2, CTAB, no increased work of breathing Abd soft, NT, ND, visibly gravid at term Giovani: cephalic, 7#, deep in pelvis EFM: 130mod ondina + A cells no D cells, reactive - occasional variable though seems that baby is off the monitor / maternal tile picker. overall reassuring. Kaka: Q3-10 Cx: 590/0 Ext: neg CCE Plan for Labor - Plan For Labor I expect patient to be DC'd or transferred within 96 hours.: Yes Plan for Labor: 22yo G1 @ term here in active labor FWB - cat 1 Labor - 5cms now, continue conservative management - re-check 2-4h and PRN - pt to ambulate - augment with pit if indicated - anticipate depression - connected to resources also CF carrier - ordering CF testing of FOB now - will also order from cord blood of baby Rh neg - rhogam workup VZVNI - VZV vaccine Anemia - care with delivery - consider IV iron post-
[2023-09-13] MEDS: fentaNYL 100 MCG/2 ML VIAL IVP PRN ×2 (16:35→18:15)
[2023-09-13] MEDS: SODIUM CHLORIDE FLUSH 0.9% 10 ML SYRINGE IVP PRN ×2 (16:37→22:35)
[2023-09-13] MEDS ORDERED: ONDANSETRON 4 MG/2 ML VIAL IVP PRN ×2 (18:26→20:41)
--- NOTE | 2023-09-13 18:45 | PROVIDER PROGRESS NOTE ---
Labor Progress Note - Uterine Monitoring Uterine Monitoring Mode: positive: External toco Contraction Frequency (min/apart): Q4 Contraction Intensity: positive: Strong Uterine Resting Tone: positive: Soft - Monitoring Monitor Mode: positive: External ultrasound Heart Rate Baseline: 125 Heart Rate Variability: positive: Moderate (6-25 bmp) Accelerations: positive: Present, 15x15 Decelerations: positive: None Strip Review: positive: Category I - Vaginal Exam Dilation (in cm): 7 Effacement (%): 100 Cervical Position: Anterior - Labor Progress Note Labor Progress Note/Additional Text: pt breathing through contractions. AROM consented for AROM clear fluid anticipate
[2023-09-13] MEDS ORDERED: ROPIVACAINE 0.2% 0 MG/0 ML BAG EP ONE (19:05)
[2023-09-13] MEDS ORDERED: LIDOCAINE 2%-EPI 1:100000 20 ML MDV ONE (19:06)
[2023-09-13] MEDS ORDERED: MINERAL OIL LIGHT 10 ML ONE (19:38)
[2023-09-13] MEDS: MINERAL OIL LIGHT 10 ML MC ONE ×2 (19:39→19:41)
[2023-09-13] MEDS ORDERED: ONDANSETRON ODT 4 MG TABLET TL PRN (20:41)
[2023-09-13] MEDS ORDERED: WITCH HAZEL/GLYCERIN 1 PAD TOP PRN (20:41)
--- NOTE | 2023-09-13 20:45 | DELIVERY NOTE ---
Delivery Note - Labor Labor: positive: Spontaneous - Delivery Method Delivery Method: positive: Spontaneous vaginal delivery - Presentation Presentation: positive: Vertex - Nuchal Cord Nuchal Cord: positive: None - Anesthetic Anesthetic: positive: Lidocaine - 1% plain Volume: positive: 4cc - Amniotic Fluid Description Amniotic Fluid Description: positive: Clear - Episiotomy Type Episiotomy Type: positive: None - Laceration Laceration: positive: 2nd degree, Labial - Suture Suture Type: positive: Vicryl Suture Size: positive: 2-0 - Delivery Outcome Delivery Outcome: positive: Livebirth - : positive: Placed in direct skin contact with mother [place] sex: positive: Female - Cord Cord: positive: 3 vessels - Placenta Placenta: positive: Intact, Other (sending placenta to pathology - heart shaped) - Estimated Blood Loss Estimated Blood Loss (in cc): 150 - Post Delivery Events Post Delivery Events: positive: No post delivery events - Delivery Comments (Free Text/Narrative) Delivery Comments (Free Text/Narrative): On 13 Sep 2023 at 2007 patient delivered a viable female over intact perineum. Baby LOT, R shoulder anterior, L posterior compound hand, delivered before anterior shoulder. baby crying, shoulders and body delivered without difficulty. Placed on maternal abdomen. Apgars 8/9. Cord clamped and cut x2. 2' left labial laceration repaired with 2.0 vicryl, hemostatic after repair. Placenta delivered at 2019, inspected, intact with 3VC. Fundus firm with IV pitocin. All counts correct, both mom and baby recovering well. Stage I: 1h52m Stage II: 56m Stage III: 12m
[2023-09-13] MEDS: ACETAMINOPHEN 325 MG TABLET PO PRN (21:11)
[2023-09-13] MEDS: DOCUSATE SODIUM 100 MG CAPSULE PO SCH (21:12)
[2023-09-13] MEDS: IBUPROFEN 600 MG TABLET PO PRN (21:12)
[2023-09-14 02:09] LABS: BASOPHILS # (AUTO) 0.1 10^3/uL (0.0-0.1); BASOPHILS % (AUTO) 0.3 %; EOSINOPHILS % (AUTO) 0.1 %; HGB - HEMOGLOBIN 8.5 g/dL (12.0-16.0); LYMPHOCYTES # (AUTO) 1.4 10^3/uL (1.5-3.5); LYMPHOCYTES % (AUTO) 8.5 %; MEAN CORPUSCULAR HGB CONC 30.4 g/dL (32.0-36.0); MEAN CORPUSCULAR VOLUME 75.9 fL (81.0-99.0); MEAN PLATELET VOLUME 9.6 fL (7.9-10.8); MONOCYTES # (AUTO) 1.3 10^3/uL (0.0-1.0); MONOCYTES % (AUTO) 7.7 %; NEUTROPHILS # (AUTO) 13.8 10^3/uL (1.5-6.6); NEUTROPHILS % (AUTO) 82.7 %; PLT - PLATELET COUNT 280 10^3/uL (130-450); RED BLOOD COUNT 3.69 10^6/uL (4.20-5.40); RED CELL DISTRIBUTION WIDTH 15.6 % (12.0-15.0); WHITE BLOOD COUNT 16.6 x10^3/uL (4.8-10.8)
[2023-09-14] MEDS: ACETAMINOPHEN 325 MG TABLET PO PRN ×5 (02:17→20:24)
[2023-09-14] MEDS: IBUPROFEN 600 MG TABLET PO PRN ×3 (02:57→15:31)
[2023-09-14] MEDS ORDERED: LACTATED RINGERS 1,000 ML IV SCH (04:00)
--- NOTE | 2023-09-14 05:50 | PROVIDER PROGRESS NOTE ---
Subjective - Prog Note Date Prog Note Date: 09/14/23 Prog Note Time: 05:42 - Subjective Pt reports feeling: Improved Subjective: Pt well, lochia appropriate, + amb, + void, + luis PO, + flatus Feeding going well -- breast Bonding with baby overnight when she stood up she felt dizzy and lightheaded RN tested orthostatics - positive by HR from 72 --> 130+ HR CBC HgB 8.5 from 9.9 considered PRBC and with IV hydration (appx 500cc - 250 bolus then 150/h) has felt better will increase the IV rate to 225, and then finish the IV, re-test orthostatics & CBC if still positive / continued drop will transfuse blood if not, will consider IV iron. Objective - Vital Signs/Intake & Output Reviewed Vital Signs: Yes Vital Signs: Vital Signs x48h Temp Pulse Resp BP 09/14/23 03:05 117 H 118/73 09/14/23 03:01 137 H 122/59 L 09/14/23 02:58 72 107/61 09/14/23 00:35 98.1 F 84 16 105/58 L Intake & Output: Intake & Output 09/11/23 09/12/23 09/13/23 09/14/23 23:59 23:59 23:59 23:59 Intake Total 1000.00 477.5 Output Total 200 550 Balance 800.00 -72.5 - Objective General Appearance: positive: No acute distress Eyes Bilateral: positive: Normal inspection ENT: positive: ENT inspection nml Neck: positive: Nml inspection Respiratory: positive: No respiratory distress, Breath sounds nml Cardiovascular: positive: Regular rate & rhythm, No murmur, No gallop Abdomen: positive: Non-tender, Other (felice 3 below u) Skin: positive: Color nml, No rash, Warm, Dry Extremities: positive: Non-tender, Full ROM Neurologic/Psychiatric: positive: Oriented x3, Mood/affect nml - Lab Results Fish Bones: 09/14/23 01:54 Other Labs: Lab Results x24hrs 09/14/23 09/13/23 09/13/23 Range/Units 01:54 10:00 10:00 WBC 16.6 H 9.6 (4.8-10.8) x10^3/uL RBC 3.69 L 4.17 L (4.20-5.40) 10^6/uL Hgb 8.5 L 9.5 L (12.0-16.0) g/dL Hct 28.0 L 31.3 L (37.0-47.0) % MCV 75.9 L 75.1 L (81.0-99.0) fL MCH 23.0 L 22.8 L (27.0-31.0) pg MCHC 30.4 L 30.4 L (32.0-36.0) g/dL RDW 15.6 H 15.7 H (12.0-15.0) % Plt Count 280 322 (130-450) 10^3/uL MPV 9.6 10.0 (7.9-10.8) fL Neut # (Auto) 13.8 H 7.2 H (1.5-6.6) 10^3/uL Lymph # (Auto) 1.4 L 1.5 (1.5-3.5) 10^3/uL [place] # (Auto) 1.3 H 0.7 (0.0-1.0) 10^3/uL Eos # (Auto) 0.0 0.1 (0.0-0.7) 10^3/uL Baso # (Auto) 0.1 0.0 (0.0-0.1) 10^3/uL Absolute Nucleated RBC 0.00 0.00 x10^3/uL Nucleated RBC % 0.0 0.0 /100WBC Blood Type A NEGATIVE Antibody Screen POSITIVE Antibody Identification See Comments BLANCO, Polyspecific NEGATIVE Crossmatch See Detail Assessment/Plan - Problem List (2) Anemia Impression: under evaluation symptoms are improving either IV blood or IV iron depending on upcoming re-evaluation. currently stable Qualifiers: Anemia type: other cause Other causes of anemia: acute posthemorrhagic Qualified Code(s): D62 - Acute posthemorrhagic anemia (3) Normal labor Impression: continue to advance anticipate D/C home tomorrow (4) Mother currently breast-feeding Impression: doing well continue support
[2023-09-14 08:43] LABS: BASOPHILS # (AUTO) 0.1 10^3/uL (0.0-0.1); BASOPHILS % (AUTO) 0.4 %; EOSINOPHILS # (AUTO) 0.1 10^3/uL (0.0-0.7); EOSINOPHILS % (AUTO) 0.4 %; HCT - HEMATOCRIT 25.2 % (37.0-47.0); HGB - HEMOGLOBIN 7.7 g/dL (12.0-16.0); LYMPHOCYTES # (AUTO) 1.9 10^3/uL (1.5-3.5); MEAN CORPUSCULAR HGB CONC 30.6 g/dL (32.0-36.0); MEAN CORPUSCULAR VOLUME 75.2 fL (81.0-99.0); MEAN PLATELET VOLUME 9.7 fL (7.9-10.8); MONOCYTES # (AUTO) 1.1 10^3/uL (0.0-1.0); MONOCYTES % (AUTO) 7.8 %; NEUTROPHILS # (AUTO) 10.6 10^3/uL (1.5-6.6); NEUTROPHILS % (AUTO) 76.7 %; PLT - PLATELET COUNT 231 10^3/uL (130-450); RED BLOOD COUNT 3.35 10^6/uL (4.20-5.40); RED CELL DISTRIBUTION WIDTH 15.6 % (12.0-15.0); WHITE BLOOD COUNT 13.8 x10^3/uL (4.8-10.8)
[2023-09-14] MEDS: DOCUSATE SODIUM 100 MG CAPSULE PO SCH ×2 (08:50→20:24)
[2023-09-14] MEDS: FERROUS SULFATE 325 MG TABLET PO SCH (10:34)
[2023-09-14] MEDS: buPROPion XL 150 MG TABLET PO SCH (10:35)
[2023-09-14] MEDS ORDERED: diphenhydrAMINE 25 MG CAPSULE PO PRN (11:10)
--- NOTE | 2023-09-14 11:13 | PROVIDER PROGRESS NOTE ---
Subjective - Prog Note Date Prog Note Date: 09/14/23 Prog Note Time: 11:12 - Subjective Subjective: pt still fatigued positive orthostatics persist CBC 7.7 will tx 1 unit PRBC, re-eval and then consider a second unit. pt consented blood ordered. all explained all questions answered. Objective - Vital Signs/Intake & Output Vital Signs: Vital Signs x48h Temp Pulse Resp BP Pulse Ox 09/14/23 08:53 99 109/67 99 09/14/23 08:52 98.4 F 68 16 105/56 L 99 09/14/23 06:35 98.5 F 71 16 111/59 L 98 Intake & Output: Intake & Output 09/11/23 09/12/23 09/13/23 09/14/23 23:59 23:59 23:59 23:59 Intake Total 1000.00 1250.0 Output Total 200 550 Balance 800.00 700.0 - Lab Results Fish Bones: 09/14/23 08:25 Other Labs: Lab Results x24hrs 09/14/23 09/14/23 09/13/23 Range/Units 08:25 01:54 10:00 WBC 13.8 H 16.6 H (4.8-10.8) x10^3/uL RBC 3.35 L 3.69 L (4.20-5.40) 10^6/uL Hgb 7.7 L 8.5 L (12.0-16.0) g/dL Hct 25.2 L 28.0 L (37.0-47.0) % MCV 75.2 L 75.9 L (81.0-99.0) fL MCH 23.0 L 23.0 L (27.0-31.0) pg MCHC 30.6 L 30.4 L (32.0-36.0) g/dL RDW 15.6 H 15.6 H (12.0-15.0) % Plt Count 231 280 (130-450) 10^3/uL MPV 9.7 9.6 (7.9-10.8) fL Neut # (Auto) 10.6 H 13.8 H (1.5-6.6) 10^3/uL Lymph # (Auto) 1.9 1.4 L (1.5-3.5) 10^3/uL [place] # (Auto) 1.1 H 1.3 H (0.0-1.0) 10^3/uL Eos # (Auto) 0.1 0.0 (0.0-0.7) 10^3/uL Baso # (Auto) 0.1 0.1 (0.0-0.1) 10^3/uL Absolute Nucleated RBC 0.00 0.00 x10^3/uL Nucleated RBC % 0.0 0.0 /100WBC Blood Type A NEGATIVE Antibody Screen POSITIVE Antibody Identification See Comments BLANCO, IgG Specific Not Reportable BLANCO, Polyspecific NEGATIVE [place], C3d Specific Not Reportable Crossmatch See Detail Assessment/Plan - Problem List (2) Anemia Qualifiers: Anemia type: other cause Other causes of anemia: acute posthemorrhagic Qualified Code(s): D62 - Acute posthemorrhagic anemia
[2023-09-14] MEDS ORDERED: SODIUM CHLORIDE 0.9% 500 ML IV ONE ×3 (11:26→17:48)
[2023-09-14 17:10] LABS: BASOPHILS # (AUTO) 0.1 10^3/uL (0.0-0.1); BASOPHILS % (AUTO) 0.4 %; EOSINOPHILS # (AUTO) 0.1 10^3/uL (0.0-0.7); EOSINOPHILS % (AUTO) 0.6 %; HCT - HEMATOCRIT 28.8 % (37.0-47.0); HGB - HEMOGLOBIN 8.7 g/dL (12.0-16.0); LYMPHOCYTES # (AUTO) 2.2 10^3/uL (1.5-3.5); LYMPHOCYTES % (AUTO) 17.2 %; MEAN CORPUSCULAR HEMOGLOBIN 23.5 pg (27.0-31.0); MEAN CORPUSCULAR HGB CONC 30.2 g/dL (32.0-36.0); MEAN CORPUSCULAR VOLUME 77.8 fL (81.0-99.0); MEAN PLATELET VOLUME 9.9 fL (7.9-10.8); MONOCYTES % (AUTO) 7.8 %; NEUTROPHILS # (AUTO) 9.3 10^3/uL (1.5-6.6); NEUTROPHILS % (AUTO) 73.1 %; PLT - PLATELET COUNT 237 10^3/uL (130-450); RED CELL DISTRIBUTION WIDTH 16.3 % (12.0-15.0); WHITE BLOOD COUNT 12.7 x10^3/uL (4.8-10.8)
[2023-09-15] MEDS: IBUPROFEN 600 MG TABLET PO PRN ×4 (01:02→21:21)
[2023-09-15] MEDS: ACETAMINOPHEN 325 MG TABLET PO PRN ×4 (02:03→21:21)
[2023-09-15 06:08] LABS: BASOPHILS # (AUTO) 0.1 10^3/uL (0.0-0.1); BASOPHILS % (AUTO) 0.7 %; EOSINOPHILS # (AUTO) 0.2 10^3/uL (0.0-0.7); EOSINOPHILS % (AUTO) 1.8 %; HCT - HEMATOCRIT 31.7 % (37.0-47.0); HGB - HEMOGLOBIN 9.9 g/dL (12.0-16.0); LYMPHOCYTES # (AUTO) 2.5 10^3/uL (1.5-3.5); MEAN CORPUSCULAR HEMOGLOBIN 24.4 pg (27.0-31.0); MEAN CORPUSCULAR HGB CONC 31.2 g/dL (32.0-36.0); MEAN CORPUSCULAR VOLUME 78.1 fL (81.0-99.0); MEAN PLATELET VOLUME 9.4 fL (7.9-10.8); MONOCYTES # (AUTO) 0.9 10^3/uL (0.0-1.0); MONOCYTES % (AUTO) 7.1 %; NEUTROPHILS # (AUTO) 8.7 10^3/uL (1.5-6.6); NEUTROPHILS % (AUTO) 69.5 %; PLT - PLATELET COUNT 204 10^3/uL (130-450); RED BLOOD COUNT 4.06 10^6/uL (4.20-5.40); RED CELL DISTRIBUTION WIDTH 16.9 % (12.0-15.0); WHITE BLOOD COUNT 12.5 x10^3/uL (4.8-10.8)
[2023-09-15] MEDS: FERROUS SULFATE 325 MG TABLET PO SCH (09:30)
[2023-09-15] MEDS: buPROPion XL 150 MG TABLET PO SCH (09:31)
[2023-09-15 18:11] LABS: BASOPHILS # (AUTO) 0.1 10^3/uL (0.0-0.1); BASOPHILS % (AUTO) 0.5 %; EOSINOPHILS # (AUTO) 0.4 10^3/uL (0.0-0.7); EOSINOPHILS % (AUTO) 3.1 %; HCT - HEMATOCRIT 33.3 % (37.0-47.0); HGB - HEMOGLOBIN 10.4 g/dL (12.0-16.0); LYMPHOCYTES # (AUTO) 2.3 10^3/uL (1.5-3.5); LYMPHOCYTES % (AUTO) 19.3 %; MEAN CORPUSCULAR HEMOGLOBIN 24.5 pg (27.0-31.0); MEAN CORPUSCULAR HGB CONC 31.2 g/dL (32.0-36.0); MEAN CORPUSCULAR VOLUME 78.5 fL (81.0-99.0); MEAN PLATELET VOLUME 9.3 fL (7.9-10.8); MONOCYTES # (AUTO) 0.7 10^3/uL (0.0-1.0); MONOCYTES % (AUTO) 5.8 %; NEUTROPHILS # (AUTO) 8.5 10^3/uL (1.5-6.6); NEUTROPHILS % (AUTO) 70.3 %; PLT - PLATELET COUNT 230 10^3/uL (130-450); RED BLOOD COUNT 4.24 10^6/uL (4.20-5.40); RED CELL DISTRIBUTION WIDTH 17.2 % (12.0-15.0); WHITE BLOOD COUNT 12.1 x10^3/uL (4.8-10.8)
[2023-09-15] MEDS ORDERED: iohexoL-300 100 ML VIAL IVP ONE (21:06)
[2023-09-15] MEDS: DOCUSATE SODIUM 100 MG CAPSULE PO SCH (21:22)
--- NOTE | 2023-09-15 21:50 | CT Report ---
PROCEDURE: ANGIO CHEST W/WO INDICATIONS: Chest pain, after delivery, abn EKG CONTRAST: 80mL Omni 300 TECHNIQUE: After the administration of intravenous contrast, 2 mm axial images were acquired from the pulmonary apices to the posterior costophrenic angles during the arterial phase. In addition, 1 mm lung kernel and 5 mm soft tissue kernel reconstructions were performed. 3-dimensional coronal oblique maximum int ensity projection (MIP) reformats, 8 mm axial MIP, and 5 mm coronal and sagittal MPR reformats were t hen performed through the thorax. For radiation dose reduction, the following was used: automated exp osure control, adjustment of mA and/or kV according to patient size. COMPARISON: None. FINDINGS: Image quality: Excellent. Large vessels: A filling defect is seen in the right lower lobe pulmonary artery extending into the b asilar segmental arteries. Pulmonary arteries are normal in size. Right ventricle is normal in size. Trace reflux of contrast ma terial into the hepatic veins. The remaining pulmonary arteries are patent. Lungs and pleura: No consolidation. No pulmonary infarct is seen. No pleural effusions. No pneumotho rax. No suspicious pulmonary nodules which require follow up. Mediastinum: Heart size is normal. No pericardial effusion. No large vessel abnormality. No mediastin al adenopathy by size criteria. Chest wall and lower neck: Thyroid is unremarkable. No axillary or supraclavicular adenopathy by size . Bones: No aggressive osseous abnormality. Upper Abdomen: Unremarkable. IMPRESSION: Acute pulmonary embolus at the bifurcation of the right lower lobe pulmonary artery extending into th e basilar segmental arteries. No definite signs of right heart strain. Findings were discussed with Pratik Wiseman of the treatment team by telephone on 09/15/2013 at 9:47 P M. Reviewed by: Jovi Silva MD on 09/15/2023 9:49 PM PST Approved by: Jovi Silva MD on 09/15/2023 9:49 PM PST Station ID: [id number]
--- NOTE | 2023-09-15 22:09 | PROVIDER PROGRESS NOTE ---
Subjective - Prog Note Date Prog Note Date: 09/15/23 Prog Note Time: 22:02 - Subjective Subjective: patient was noticing chest pain yesterday that improved some with her transfusion but is still bothering her. worse when she gets up and then gets tachycardic. she does not feel short of breath or that it is hard to breath. Her chest just feels weird, tight, not right. vitals stable all day. when she stands up, her bp is up and pulse is up. bleeding is minimal. breast feeding going well. baby and partner at bedside. Objective - Vital Signs/Intake & Output Reviewed Vital Signs: Yes Vital Signs: Vital Signs x48h Temp Pulse Resp BP Pulse Ox 09/15/23 20:02 96 22 117/65 09/15/23 19:45 98.2 F 87 20 108/62 96 09/15/23 18:00 98.8 F 92 17 119/70 100 09/15/23 14:45 98.8 F 77 20 100/43 L 100 Intake & Output: Intake & Output 09/12/23 09/13/23 09/14/23 09/15/23 23:59 23:59 23:59 23:59 Intake Total 1000.00 1900.0 Output Total 200 550 Balance 800.00 1350.0 - Objective General Appearance: positive: No acute distress Respiratory: positive: No respiratory distress Cardiovascular: positive: Regular rate & rhythm (at rest.) Abdomen: positive: Non-tender Extremities: positive: Non-tender, Nml appearance, No pedal edema (legs with no swelling, hot spots, tenderness.). negative: Calf tenderness, Romel's sign/cords - Lab Results Fish Bones: 09/15/23 18:09 Other Labs: Lab Results x24hrs 09/15/23 09/15/23 Range/Units 18:09 06:03 WBC 12.1 H 12.5 H (4.8-10.8) x10^3/uL RBC 4.24 4.06 L (4.20-5.40) 10^6/uL Hgb 10.4 L 9.9 L (12.0-16.0) g/dL Hct 33.3 L 31.7 L (37.0-47.0) % MCV 78.5 L 78.1 L (81.0-99.0) fL MCH 24.5 L 24.4 L (27.0-31.0) pg MCHC 31.2 L 31.2 L (32.0-36.0) g/dL RDW 17.2 H 16.9 H (12.0-15.0) % Plt Count 230 204 (130-450) 10^3/uL MPV 9.3 9.4 (7.9-10.8) fL Neut # (Auto) 8.5 H 8.7 H (1.5-6.6) 10^3/uL Lymph # (Auto) 2.3 2.5 (1.5-3.5) 10^3/uL [place] # (Auto) 0.7 0.9 (0.0-1.0) 10^3/uL Eos # (Auto) 0.4 0.2 (0.0-0.7) 10^3/uL Baso # (Auto) 0.1 0.1 (0.0-0.1) 10^3/uL Absolute Nucleated RBC 0.00 0.00 x10^3/uL Nucleated RBC % 0.0 0.0 /100WBC - Diagnostic Imaging Diagnostic Imaging Results: positive: Final report reviewed Diagnostic Imaging Comments: pulmonary angiogram shows right PE. Assessment/Plan - Problem List (1) Pulmonary embolism affecting Impression: will start lovenox 80 mg bid for treatment. discussed with IM Hospitalist before she went home. will get formal consult from hospitalist tomorrow. reassured patient that it was safe to breast feed with lovenox. will pump and dump breast milk for [address] with contrast. patient does not have PCP. no history of clotting for her or her family. Qualifiers: Trimester: unspecified trimester Qualified Code(s): O88.219 - Thromboembolism in , unspecified trimester
[2023-09-15] MEDS: ENOXAPARIN 80 MG/0.8 ML SYRINGE SUBQ SCH (22:17)
[2023-09-16] MEDS: ACETAMINOPHEN 325 MG TABLET PO PRN (01:29)
[2023-09-16] MEDS: IBUPROFEN 600 MG TABLET PO PRN (08:31)
[2023-09-16] MEDS: DOCUSATE SODIUM 100 MG CAPSULE PO SCH (08:32)
[2023-09-16] MEDS: buPROPion XL 150 MG TABLET PO SCH (08:32)
[2023-09-16] MEDS: FERROUS SULFATE 325 MG TABLET PO SCH (08:32)
[2023-09-16 09:35] VITALS: BP 120/74; O2SAT 99
[2023-09-16] MEDS: ENOXAPARIN 80 MG/0.8 ML SYRINGE SUBQ SCH (10:06)
[2023-09-16] MEDS ORDERED: VARICELLA VACCINE LIVE/PF 1,350 UNIT/0.5 ML VIAL SUBQ ONE (13:40)
--- NOTE | 2023-09-16 14:47 | HISTORY & PHYSICAL EXAMINATION ---
Chief Complaint - Chief Complaint Chief Complaint: Dyspnea <Doron Burch - Last Filed: 09/16/23 16:14> History of Present Illness - Admitted From Admitted From:: home - History Obtained From Records Reviewed: [facility] History obtained from: [facility] and patient Exam Limitations: none <Doron Burch - Last Filed: 09/16/23 16:14> - History of Present Illness HPI Comment/Other: Milly is a 23 year old female who had a spontaneous vaginal delivery of a female infant on 09/13/2023 with no complications. She has no history of chronic illnesses or major surgeries before her , her family also has no history of clotting. She does not smoke and has no personal hx of obesity. Today she is showing signs of difficulties breathing and chest tightness. She has feelings of lightheadedness that continues when she gets up from bed and ambulates. Her vitals show normal values except O2 saturation of 88-99% and lowest BP at 102/54. Her CBC shows steady improvement in Hgb increase and WBC decrease. 09/15 CTA shows "acute pulmonary embolus at the bifurcation of the right lobe pulmonary artery extending into the basilar segmental arteries". 80mg of levenox was initiated yesterday. 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 She has a history of unspecific anemia - Family & Social History Family History: Mother: Alive and Well, Father: Diabetes, Type 2 Family History Comment/Other: grandfather on mom's side had heart surgery but she was not sure for what reason. Grandparent's on father's side but she is unsure the cause of . Family history of cystic fibrosis Living arrangement: At home Living Situation: With spouse/s.o. Social History Notes: She has good support systems in place with her spouse at [place]. Her family lives in [place] and they communicate often. She was in the [employer] but was discharged due to mental health reasons. She has not worked in the past 9 months and does not go to school. She has not exercised in the past 9 months. Her regularly eats home cooked balanced meals prepared by her spouse and eats fast foods 2x a week. - Substance History Use: Uses substance without health or social issues: NONE Abuse: Recurrent use of substance despite neg consequences: NONE Dependence: Experiences withdrawal or developed tolerances: NONE - POLST Patient has POLST: No POLST Status: Full Code <Doron Burch - Last Filed: 09/16/23 16:14> Meds/Allgy <Doron Burch - Last Filed: 09/16/23 16:14> <Allie Cummings - Last Filed: 09/16/23 16:20> - Home Medications Home Medications: Ambulatory Orders Medication Instructions Recorded Confirmed Folic Acid 1 mg PO DAILY 01/31/23 07/13/23 buPROPion [Wellbutrin Xl] 150 mg PO DAILY 07/13/23 07/13/23 Apixaban [Eliquis] 10 mg PO BID #70 tab 09/16/23 - Allergies Allergies/Adverse Reactions: Allergies Allergy/AdvReac Type Severity Reaction Status Date / Time No Known Drug Allergies Allergy Verified 02/04/23 16:28 Review of Systems - Constitutional Constitutional: denies: Fever, Chills, Malaise, Poor appetite, Diaphoresis, Night sweats - Eyes Eyes: denies: Pain, Irritation, Blurred vision, Spots in vision - Ears, Nose & Throat Ears, Nose & Throat: denies: Ear pain, Hearing loss, Tinnitus, Vertigo, Nosebleeds, Nasal obstruction, Nasal congestion, Sore throat, Hoarseness - Cardiovascular Cariovascular: reports: Lightheadedness (same lightheadedness when getting up from bed vs ambulating), Other (chest tightness but no chest pain). denies: Edema, Syncope - Respiratory Respiratory: reports: SOB at rest (especailly during expiration). denies: Cough, Sputum production, Wheezing, Orthopnea, Pleuritic pain - Gastrointestinal Gastrointestinal: denies: Abdominal pain, Abdominal distention, Constipation, Diarrhea, Change in bowel habits, Nausea, Vomiting - Genitourinary Genitourinary: denies: Dysuria, Frequency, Urgency, Hematuria, Incontinence, Flank pain - Musculoskeletal Musculoskeletal: denies: Muscle pain, Back pain, Muscle aches, Stiffness, Muscle weakness, Joint pain - Integumentary Integumentary: denies: Rash, Pruritis, Lesions, Dryness - Neurological Neurological: denies: General weakness, Headache, Numbness - Psychiatric Psychiatric: reports: Other (she reported her mood as "good") - Hematologic/Lymphatic Hematologic/Lymphatic: denies: Bruising - All Other Systems All Other Systems: reports: Reviewed and negative <Doron Burch - Last Filed: 09/16/23 16:14> <Doron Burch - Last Filed: 09/16/23 16:14> Prior Level of Functionality: independent (Burch,) Exam - Physical Exam General Appearance: positive: No acute distress, Alert. negative: Lethargic Eyes Bilateral: positive: Normal inspection, PERRL, EOMI, Conjunctivae nml, No scleral icterus ENT: positive: ENT inspection nml, No signs of dehydration Neck: positive: Nml inspection Respiratory: positive: Chest non-tender, No respiratory distress, Breath sounds nml, Rales (fine crackles heard on right lung) Cardiovascular: positive: Regular rate & rhythm, No murmur, No gallop Peripheral Pulses: positive: 2+ Abdomen: positive: Non-tender, No organomegaly, Nml bowel sounds, No distention Skin: positive: Color nml, No rash, Warm, Dry Extremities: positive: Non-tender, Full ROM, Nml appearance Neurologic/Psychiatric: positive: Oriented x3 <Doron Burch - Last Filed: 09/16/23 16:14> - Vital Signs Vital Signs: Vital Signs x48h Temp Pulse Resp BP Pulse Ox 09/16/23 09:31 74 16 120/74 99 09/16/23 08:37 36.8 C 85 16 115/70 88 L Conclusion/Plan - Problem List (1) Pulmonary embolism affecting Conclusion/Plan: chest CTA shows "acute pulmonary embolus at the bifurcation of the right lobe pulmonary artery extending into the basilar segmental arteries" She has no family hx of clotting. Her risk factors include ,and prolonged immobilization, and major trauma from delivering her baby on 09/13/2023. Plan Continue Levenox 80 mg SUBQ and switch to oral anticoag medication when discharging. She will continue anticoags for 3 months. After finishing her 3 month she will be referred to see a oncologist and legal officer and test for possible risks for hypercoagulable states. (2) Dyspnea Plan/Assessment Difficulty breathing especially during exhalation and Physical exam shows fine crackles in right lower lung. O2 saturation on room air 88-99% Most likely symptom from pulmonary embolism Plan treat PE as listed above Qualifiers: Trimester: unspecified trimester Qualified Code(s): O88.219 - Thromboembolism in , unspecified trimester - Lab Results Fish Bones: 09/15/23 18:09 - EKG Results EKG Interpreted Independently: Yes EKG Comparison: No prior EKG <Doron Burch - Last Filed: 09/16/23 16:14> - Lab Results Fish Bones: 09/15/23 18:09 <Allie Cummings - Last Filed: 09/16/23 16:20> - EKG Results EKG Findings: sinus rhythm and borderline t wave abnormalities. possible LA enlargement (Doron Burch) Core Measures - DVT/VTE - Prophylaxis VTE/DVT Device ordered at admit?: Yes VTE/DVT Prophylaxis med ordered at admit?: Yes <Doron Burch - Last Filed: 09/16/23 16:14>
--- NOTE | 2023-09-16 16:40 | Labor Flowsheet ---
Labor Flowsheet Datetime Report Generated by CPN: 09/16/2023 16:39 Datetime: 09/16/2023 09:31 VITAL SIGNS NBP Sys/Vivien/Mean (mmHg): 120 : 74 : 84 Pulse: 82 Datetime: 09/16/2023 05:04 SpO2 (%): 100 Datetime: 09/13/2023 22:20 Stage of : Datetime: 09/13/2023 22:00 PAIN Pain Scale: 2 Datetime: 09/13/2023 21:45 Temperature (C): 37.0 Temperature Route: Oral Datetime: 09/13/2023 21:15 Respirations: 16 Pain Presence: Constant Pain Type: Cramping (Annotations: sore) Pain Location: Other (Annotations: uterus/vagina) Pain Goal: 5 Pain Relief Measures: Pain Medication Given; Comfort Measures Datetime: 09/13/2023 20:28 Membranes Ruptured Date/Time: 09/13/2023 18:37 Datetime: 09/13/2023 20:16 Medication Comments: pitocin wide open Datetime: 09/13/2023 20:12 Communication Comments: Dr Datetime: 09/13/2023 20:07 UTERINE ACTIVITY Monitor Mode: External Frequency (min): 3 Quality: Strong Duration (sec): 60-90 Pattern: Normal: <= 5 Contractions in 10 Minutes Resting Tone (Palpate): Relaxed ASSESSMENT A Monitor Mode: Telemetry FHR Baseline Rate : 125 Variability: Minimal - Undetectable to <=5 bpm Accelerations: 15X15 Decelerations: Variable Category: Category II Comments: persistent periodic mild ondina decels noted Datetime: 09/13/2023 19:54 LaborFlag: Labor Datetime: 09/13/2023 19:34 Pain Assessment Comments: pt using nitrous int. Datetime: 09/13/2023 19:30 FHR Baseline Changes: Bradycardia Actions for Decelerations: IV Bolus; Other Oxygen Method: Room Air Datetime: 09/13/2023 19:22 PATIENT CARE IV/Blood Work: IV Bolus Given ml @ 500; IV Infusing per Order Datetime: 09/13/2023 19:16 COMMUNICATION Communication: Provider at Bedside Datetime: 09/13/2023 19:15 Monitor Interventions for FHR: Ultrasound Adjusted Patient Care Comments: pt pushing Datetime: 09/13/2023 19:11 VAGINAL EXAM Dilatation (cm): 10.0 Effacement (%): 100 Station: 3 Exam by: Kylah Correia, RN Datetime: 09/13/2023 19:10 Pain Coping: Crying; Writhing Patient Position/Activity: Low Fowlers Comfort Measures: Coaching Datetime: 09/13/2023 19:07 Contraction Comments: pt sitting sideways on bed, spontaneous pushing noted ANESTHESIA Anesthesia Comments: 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
--- NOTE | 2023-09-16 19:48 | Discharge Plan ---
Discharge Plan Problem Reviewed?: Yes Disposition: Home, Self Care Prescriptions: Apixaban [Eliquis] 10 mg PO BID #70 tab Diet: Regular Activity Restrictions: pelvic rest x 6 weeks Shower Restrictions: No No Smoking: If you smoke, Please STOP! Call for help. Follow-up with: Hillary Lancaster MD [Provider Admit Priv/Credential] -
--- NOTE | 2023-09-16 19:51 | DISCHARGE SUMMARY ---
Discharge Summary Admit Date: 09/13/23 Discharge Date: 09/16/23 Discharging Provider: Erica Lancaster Code Status: Attempt Resuscitation Condition at Discharge: Stable - DIAGNOSES Admission Diagnoses: term labor. Discharge Diagnoses with Status of Each Condition: term labor, delivered vaginally. post hemorrhage s/p 2 units blood transfused. stable pulmonary embolus in right lung. stable with improved symptoms on lovenox to Elequis. carried of CF gene mutation. - HPI History of Present Illness: admitted in active labor 39w3d. - HOSPITAL COURSE Hospital Course: progressed well in her labor. vaginal delivery with pp hemorrhage. 2 units blood transfused on ppd1. chest pain prior to transfusion did not go away. ECG showed T wave changes and CT angio of lungs was done showing right PE. ppd 2. started on lovenox 80 mg sq bid. seen by Dr. Cummings in consultation on PPD 3 and discharge home on Elequis. confirmed that she was able to get this from pharmacy before she went home. will take for 3 m and see hematology for further plan. did feel better in her chest at time of discharge. breast feeding going well. - ALLERGIES Allergies/Adverse Reactions: Allergies Allergy/AdvReac Type Severity Reaction Status Date / Time No Known Drug Allergies Allergy Verified 02/04/23 16:28 - MEDICATIONS Home Medications: Ambulatory Orders Medication Instructions Recorded Confirmed Folic Acid 1 mg PO DAILY 01/31/23 07/13/23 buPROPion [Wellbutrin Xl] 150 mg PO DAILY 07/13/23 07/13/23 Apixaban [Eliquis] 10 mg PO BID #70 tab 09/16/23 - PHYSICAL EXAM AT DISCHARGE General Appearance: positive: No acute distress Respiratory: positive: No respiratory distress Cardiovascular: positive: Regular rate & rhythm, Other (pulse does go up to about 110 wiht activity. ) Abdomen: positive: Non-tender Extremities: positive: Non-tender, Nml appearance, No pedal edema. negative: Romel's sign/cords Neurologic/Psychiatric: positive: Oriented x3 - LABS Result Diagrams: 09/15/23 18:09 - DIAGNOSTIC IMAGING Diagnostic Imaging Results: Final report reviewed, Critical result - FOLLOW UP Follow Up[facility] - TIME SPENT Time Spent in Discharge (Minutes): 40
[2023-09-17] MEDS ORDERED: buPROPion XL 150 MG TABLET PO SCH (09:00)
[2023-09-17] MEDS ORDERED: FOLIC ACID 1 MG TABLET PO SCH (09:00)
== END 2023-09-16 15:55 | disposition home or self-care (01) | DRG 805 ==
LOC: WFO 08:04 → FBP 08:06 → WFO 09:45 → FBP 09:46
PROVIDERS: ADMIT Obstetrics & Gynecology; ATTEND Obstetrics & Gynecology
PROC: 10907ZC Drainage of Amniotic Fluid, Therapeutic from Products of Conception, Via Natural or Artificial Opening (ICD-10-PCS; principal; 2023-09-13)
PROC: 10E0XZZ Delivery of Products of Conception, External Approach (ICD-10-PCS; 2023-09-13)
PROC: 0KQM0ZZ Repair Perineum Muscle, Open Approach (ICD-10-PCS; 2023-09-13)
PROC: 30233N1 Transfusion of Nonautologous Red Blood Cells into Peripheral Vein, Percutaneous Approach (ICD-10-PCS; 2023-09-14)
DX: O99.02 Anemia complicating childbirth (principal); O88.23 Thromboembolism in the puerperium; Z37.0 Single live birth; D62 Acute posthemorrhagic anemia; O72.2 Delayed and secondary postpartum hemorrhage; O99.344 Other mental disorders complicating childbirth; F32.A Depression, unspecified; O32.6XX0 Maternal care for compound presentation, not applicable or unspecified; Z3A.39 39 weeks gestation of pregnancy; O90.81 Anemia of the puerperium; O70.1 Second degree perineal laceration during delivery; Z14.1 Cystic fibrosis carrier; O26.893 Other specified pregnancy related conditions, third trimester; Z67.11 Type A blood, Rh negative; F41.9 Anxiety disorder, unspecified; O99.345 Other mental disorders complicating the puerperium; F53.0 Postpartum depression; O90.89 Other complications of the puerperium, not elsewhere classified; R42 Dizziness and giddiness; E87.6 Hypokalemia
CPT/HCPCS: 36415; 59409; 71275; 80053; 83690; 85025; 86850; 86870; 86880; 86900; 86901; 86922; 93005; 96361; 99215; 99284; A9270; J1650; J7120; P9016; Q0162; Q9967; 86920; 90716; 96374

== ENCOUNTER 2023-09-16 22:38 | Emergency (ER) | payer OTHER ==
[2023-09-16] MEDS ORDERED: ACETAMINOPHEN 500 MG TABLET PO STA (23:23)
[2023-09-16] MEDS ORDERED: ONDANSETRON 4 MG/2 ML VIAL IVP STA (23:23)
[2023-09-16] MEDS ORDERED: SODIUM CHLORIDE 0.9% 1,000 ML IV STA (23:23)
[2023-09-16 23:55] LABS: BASOPHILS # (AUTO) 0.1 10^3/uL (0.0-0.1); BASOPHILS % (AUTO) 0.6 %; EOSINOPHILS # (AUTO) 0.5 10^3/uL (0.0-0.7); EOSINOPHILS % (AUTO) 4.7 %; HCT - HEMATOCRIT 33.4 % (37.0-47.0); HGB - HEMOGLOBIN 10.3 g/dL (12.0-16.0); LYMPHOCYTES # (AUTO) 2.3 10^3/uL (1.5-3.5); MEAN CORPUSCULAR HGB CONC 30.8 g/dL (32.0-36.0); MEAN CORPUSCULAR VOLUME 77.9 fL (81.0-99.0); MONOCYTES # (AUTO) 0.7 10^3/uL (0.0-1.0); MONOCYTES % (AUTO) 7.3 %; NEUTROPHILS # (AUTO) 6.2 10^3/uL (1.5-6.6); NEUTROPHILS % (AUTO) 63.5 %; PLT - PLATELET COUNT 256 10^3/uL (130-450); RED BLOOD COUNT 4.29 10^6/uL (4.20-5.40); RED CELL DISTRIBUTION WIDTH 17.5 % (12.0-15.0); WHITE BLOOD COUNT 9.8 x10^3/uL (4.8-10.8)
--- NOTE | 2023-09-16 23:56 | ED Physician Documentation ---
History of Present Illness - Stated complaint Stated Complaint: LANTIGUA/LIGHTHEADED - Chief complaint Chief Complaint: Heent - History obtained from History obtained from: Patient, Other (Hospitalist consult note and discharge summary from today) - Additonal information Additional information: Patient is a 22-year-old female who recently had a vaginal delivery on September 13 presenting for evaluation of headache and lightheadedness. Patient did have a hemorrhage and received 2 units of blood transfusion during her hospitalization. She was also found to have a segmental pulmonary embolus and started on Eliquis. She has been reporting lightheadedness with ambulation through her hospitalization. She was seen by the hospitalist service today and they felt she was appropriate for discharge. Patient states that she feels lightheaded even with sitting but worse with standing. She also reports now having a headache for the last hour behind both eyes with associated photophobia. Denies nausea or vomiting. No head injury. She has taken her Eliquis today. Denies chest pain or feeling short of air. Also reports a generalized achiness feeling throughout her body. Reports that her vaginal bleeding has been minimal. Did not have an epidural for the delivery. Review of Systems Constitutional: denies: Fever Cardiac: denies: Chest pain / pressure Respiratory: denies: Dyspnea GI: denies: Abdominal Pain, Vomiting Neurologic: reports: Headache. 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 : None HEENT: None Psych: Depression, Anxiety, Post traumatic stress disorder Musculoskeletal: None Derm: None - Past Surgical History Past Surgical History: No - Present Medications Home Medications: Ambulatory Orders Medication Instructions Recorded Confirmed Folic Acid 1 mg PO DAILY 01/31/23 07/13/23 buPROPion [Wellbutrin Xl] 150 mg PO DAILY 07/13/23 07/13/23 Apixaban [Eliquis] 10 mg PO BID #70 tab 09/16/23 - Allergies Allergies/Adverse Reactions: Allergies Allergy/AdvReac Type Severity Reaction Status Date / Time No Known Drug Allergies Allergy Verified 09/16/23 22:57 - Social History Does the pt smoke?: No Smoking Status: Never smoker Does the pt drink ETOH?: No Does the pt have substance abuse?: No - Immunizations Immunizations are current?: No - POLST Patient has POLST: No POLST Status: Full Code PD ED PE NORMAL - General General: Alert and oriented X 3, No acute distress, Well developed/nourished - HEENT HEENT: Atraumatic, Moist mucous membranes, Pharynx benign - Neck Neck: Supple, no meningeal sign - Cardiac Cardiac: RRR, No murmur - Respiratory Respiratory: No respiratory distress, Clear bilaterally - Abdomen Abdomen: Normal bowel sounds, Soft, Non tender, Non distended - Derm Derm: Warm and dry - Extremities Extremities: No calf tenderness / cord - Neuro Neuro: Alert and oriented X 3, partition notcher 2-12 intact, No motor deficit, No sensory deficit, Normal speech Results - Vitals Vitals: Vital Signs - 24 hr 09/16/23 09/16/23 09/17/23 22:46 23:24 00:00 Temperature 36.6 C Heart Rate 72 67 71 Heart Rate [ 74 Sitting] Heart Rate [ 111 H Standing] Heart Rate [ 67 Supine] Respiratory 18 17 12 Rate Blood Pressure 132/84 H 118/82 H 114/78 Blood Pressure 116/74 [Sitting] Blood Pressure 117/79 [Standing] Blood Pressure 118/82 H [Supine] O2 Saturation 100 97 96 09/17/23 09/17/23 02:00 02:59 Temperature Heart Rate 71 71 Heart Rate [ Sitting] Heart Rate [ Standing] Heart Rate [ Supine] Respiratory 18 21 Rate Blood Pressure 102/66 102/66 Blood Pressure [Sitting] Blood Pressure [Standing] Blood Pressure [Supine] O2 Saturation 96 97 Oxygen O2 Source Room air - EKG (time done) 2351 EKG releavant findings:: EKG personally interpreted by author of this note. Relevant findings are: Rate 66, normal sinus rhythm, no STEMI, minimal T wave inversions in lead III and flattening in aVF - Labs Labs: Laboratory Tests 09/16/23 09/16/23 23:40 23:40 WBC 9.8 RBC 4.29 Hgb 10.3 L Hct 33.4 L MCV 77.9 L MCH 24.0 L MCHC 30.8 L RDW 17.5 H Plt Count 256 MPV 9.0 Neut # (Auto) 6.2 Lymph # (Auto) 2.3 [place] # (Auto) 0.7 Eos # (Auto) 0.5 Baso # (Auto) 0.1 Absolute Nucleated RBC 0.00 Nucleated RBC % 0.0 Sodium 138 Potassium 3.4 L Chloride 108 Carbon Dioxide 23 Anion Gap 7.0 BUN 6 Creatinine 0.5 L Estimated GFR (MDRD) 156 Glucose 84 Calcium 9.2 Total Bilirubin 0.3 AST 25 ALT 16 Alkaline Phosphatase 111 Total Protein 6.6 Albumin 3.5 Globulin 3.1 Albumin/Globulin Ratio 1.1 Lipase 19 PD Medical Decision Making - ED course Complexity details: reviewed results, re-evaluated patient, d/w patient, d/w procurement consultant ED course: Patient is a 22-year-old female presenting for evaluation of lightheadedness with standing as well as a headache starting an hour ago. She rates it a 4 out of 10. Not thunderclap in intensity. Her history is significant and that she is only a few days and recently found to have a pulmonary embolism and started on Eliquis. She was actually just discharged from the hospital earlier today. She has a normal neuro exam with stable vital signs. Initial blood pressure was slightly elevated but on recheck repeated blood pressures have been within normal limits and I do not see signs of preeclampsia. CBC, chemistries were obtained and reviewed. Mild hypokalemia which was replaced orally. She is noted to be orthostatic and was given 2 L of IV fluids with improvement. Mild anemia which is Unchanged from last lab and improved from a few days ago. I did obtain a CT of her head as she is on Eliquis and reports a slight headache which is negative for an intracranial hemorrhage. She was given a dose of acetaminophen and IV morphine for headache. She is feeling better here. She is ambulatory. I did review the case with on-call OB, Dr. Lancaster who was the one that discharge the patient and actually spoke to her tonight to advise her to come to the ER for an evaluation. She denies chest pain or feeling short of air. She is counseled on continued supportive care as well as need for close follow-up with OB. She is advised on concerning symptoms to return for. 0100 - Able to ambulate to the bathroom without any difficulty. Departure - Departure Disposition: 01 Home, Self Care Clinical Impression: Orthostatic lightheadedness, Headache Condition: Stable Instructions: ED Cephalgia Unspecified, ED Near Syncope Vasovagal [facility]: [facility] [Provider Group] Comments: Please continue to get rest and stay hydrated. Use acetaminophen for pain as needed. Return to the ER if you have any worsening symptoms. Continue to have close follow-up with [facility]. Continue with taking your blood thinner as prescribed. Forms: PCP List Discharge Date/Time: 09/17/23 03:00
[2023-09-17 00:09] LABS: ALBUMIN 3.5 g/dL (3.2-5.5); ALBUMIN/GLOBULIN RATIO 1.1 (1.0-2.2); BILIRUBIN,TOTAL 0.3 mg/dL (0.2-1.0); CALCIUM 9.2 mg/dL (8.5-10.3); CREATININE 0.5 mg/dL (0.6-1.3); POTASSIUM 3.4 mmol/L (3.5-4.5); TOTAL PROTEIN 6.6 g/dL (6.4-8.9)
[2023-09-17] MEDS ORDERED: POTASSIUM BICARB 25 MEQ TABLET PO ONE (00:27)
[2023-09-17] MEDS ORDERED: SODIUM CHLORIDE 0.9% 1,000 ML IV STA (00:51)
[2023-09-17] MEDS ORDERED: MORPHINE 2 MG/ML CARPUJECT IVP STA (00:51)
[2023-09-17 02:11] VITALS: BP 102/66
[2023-09-17 03:05] VITALS: O2SAT 97
--- NOTE | 2023-09-17 07:44 | CT Report ---
PROCEDURE: HEAD WO INDICATIONS: headache on eliquis TECHNIQUE: Noncontrast 4.5 mm thick angled axial sections acquired from the foramen magnum to the vertex. For r adiation dose reduction, the following was used: automated exposure control, adjustment of mA and/or kV according to patient size. COMPARISON: None. FINDINGS: Image quality: Excellent. CSF spaces: Basal cisterns are patent. No extra-axial fluid collections. Ventricles are normal in size and shape. Brain: No midline shift. No intracranial masses or hemorrhage. Najera-white matter interface is norm al. Skull and face: Calvarium and visualized facial bones are intact, without suspicious lesions. Sinuses: Visualized sinuses and mastoids are clear. IMPRESSION: No acute intracranial pathology. The above findings are concordant with preliminary report. Reviewed by: Lily Seymour MD on 09/17/2023 7:43 AM PST Approved by: Lily Seymour MD on 09/17/2023 7:43 AM [facility] Station ID: [id number]
== END 2023-09-17 03:00 | disposition home or self-care (01) ==
LOC: ED 22:38
DX: O90.89 Other complications of the puerperium, not elsewhere classified (principal); R42 Dizziness and giddiness; R51.9 Headache, unspecified; I26.99 Other pulmonary embolism without acute cor pulmonale
CPT/HCPCS: 36415; 80053; 83690; 85025; 93005; 96361; 96374; 99284

== ENCOUNTER 2025-08-25 15:55 | Inpatient (IN) ==
[2025-08-25] MEDS ORDERED: TERBUTALINE 1 MG/ML VIAL SUBQ PRN (16:05)
[2025-08-25] MEDS ORDERED: LACTATED RINGERS 1,000 ML IV PRN (16:05)
[2025-08-25] MEDS ORDERED: hydrALAZINE INJ 20 MG/ML VIAL IVP PRN ×2 (16:05)
[2025-08-25] MEDS ORDERED: TRANEXAMIC ACID IN NACL 1,000 MG/100 ML BAG IV PRN (16:05)
[2025-08-25] MEDS ORDERED: METOCLOPRAMIDE 10 MG/2 ML VIAL IVP PRN (16:05)
[2025-08-25] MEDS ORDERED: fentaNYL 100 MCG/2 ML VIAL IVP PRN (16:05)
[2025-08-25] MEDS ORDERED: ACETAMINOPHEN 500 MG TABLET PO PRN (16:05)
[2025-08-25] MEDS ORDERED: CALCIUM CARBONATE CHEW 500 MG TABLET PO PRN (16:05)
[2025-08-25] MEDS ORDERED: DOCUSATE SODIUM 100 MG CAPSULE PO PRN (16:05)
[2025-08-25] MEDS ORDERED: LABETALOL 20 MG/4 ML SYRINGE IVP PRN ×3 (16:05)
[2025-08-25] MEDS ORDERED: OXYTOCIN 10 UNIT/ML VIAL IM PRN (16:05)
[2025-08-25] MEDS ORDERED: ONDANSETRON ODT 4 MG TABLET PO PRN (16:05)
[2025-08-25] MEDS ORDERED: CARBOPROST TROMETHAMINE 250 MCG/ML VIAL IM PRN (16:05)
[2025-08-25] MEDS ORDERED: METHYLERGONOVINE 0.2 MG/ML VIAL IM PRN (16:05)
--- OUTSIDE RECORDS SUMMARY | 2025-08-25 16:27 | EXTERNAL MEDICAL SUMMARY RPT | Continuity of Care Document ---
Author Organization [facility] Address [address] [place] [id number] Phone Problems date description facility 2025-06-06 11:58 Supervision of high risk , unspecified, first trimester [facility] 2025-06-06 11:58 Encounter for superv ision of normal , unspecified, unspecified trimester [facility] 2025-06-06 13:24 Supervision of high risk , unspecified, first trimester [facility] 2025-06-06 13:24 Encounter for superv ision of normal , unspecified, unspecified trimester [facility] 2025-06-06 14:15 Other specified preg gopal related conditions, unspecified trimester [facility] 2025-06-06 14:15 Encounter for immunization [facility] 2025-06-06 14:15 Unspecified blood type, Rh nega tive [facility] 2025-06-07 00:04 Supervision of high risk , unspecified, first trimester [facility] 2025-06-07 00:04 Encounter for superv ision of normal , unspecified, unspecified trimester [facility] 2025-06-07 13:08 Supervision of high risk , unspecified, first trimester [facility] 2025-06-09 11:33 Other specified preg gopal related conditions, third trimester [facility] 2025-06-09 11:34 Other specified preg gopal related conditions, unspecified trimester [facility] 2025-06-09 11:34 Encounter for immunization [facility] 2025-06-09 11:34 Unspecified blood type, Rh nega tive [facility] 2025-06-09 12:16 Supervision of high risk , unspecified, first trimester [facility] 2025-06-10 07:20 Decreased move ments, second trimester, not applicable or unspecified [facility] 2025-06-27 11:51 Supervision of other high risk pregnancies, [facility] 2025-06-27 11:51 [facility]25-[facility] 11:51 Personal history of pulmonary e mbolism [facility] 2025-06-29 09:18 Anemia complicating , unspecified [facility] 2025-06-29 09:18 Other diseases of th e blood and blood-forming organs and certain disorders involving the immune mechanism complicating , second trimester [facility] 2025-06-29 13:01 Anemia complicating , unspecified trimester [facility] 2025-06-29 13:10 Anemia complicating , unspecified trimester [facility] 2025-06-29 13:10 Other diseases of th e blood and blood-forming organs and certain disorders involving the immune mechanism complicating , second trimester [facility] 2025-06-29 13:11 Anemia complicating , unspecified trimester [facility] 2025-06-29 13:11 Other diseases of th e blood and blood-forming organs and certain disorders involving the immune mechanism complicating , second trimester [facility] 2025-06-30 00:04 Anemia complicating , unspecified trimester [facility] 2025-06-30 08:11 Anemia complicating , unspecified trimester [facility] 2025-06-30 09:05 Anemia complicating , unspecified trimester [facility] 2025-07-01 12:06 Anemia complicating , unspecified trimester [facility] 2025-07-07 10:08 Anemia complicating , unspecified trimester [facility] 2025-07-07 14:10 Depression, unspecified [facility] 2025-07-07 14:10 Anxiety disorder, unspecified [facility] 2025-07-07 14:10 Borderline personality disorder [facility] 2025-[facility]07 14:10 Supervision of high risk , unspecified, third [facility] 2025-07-07 14:10 Encounter for immunization [facility] 2025-07-07 15:12 Depression, unspecified [facility] 2025-07-07 15:12 Anxiety disorder, unspecified [facility] 2025-07-07 15:12 Borderline personality disorder [facility] 2025-07-07 15:12 Supervision of high risk , unspecified, third trimester [facility] 2025-07-07 15:12 Encounter for immunization [facility] 2025-07-07 15:13 Depression, unspecified [facility] 2025-07-07 15:13 Anxiety disorder, unspecified [facility] 2025-07-07 15:13 Borderline personality disorder [facility] 2025-07-07 15:13 Supervision of high risk , unspecified, third trimester [facility] 2025-07-07 15:13 Encounter for immunization [facility] 2025-07-11 10:29 Depression, unspecified [facility] 2025-07-11 10:29 Anxiety disorder[facility] unspecified [facility] 2025-07-11 10:29 Borderline personality disorder [facility] 2025-[facility]11 10:29 Supervision of high risk , unspecified, third trimester [facility] 2025-07-11 10:29 Other mental disorde rs complicating , third trimester [facility] 2025-07-11 10:29 Encounter for immunization [facility] 2025-07-11 10:30 Depression, unspecified [facility] 2025-07-11 10:30 Anxiety disorder, unspecified [facility] 2025-07-11 10:30 Borderline personality disorder [facility] 2025-07-11 10:30 Supervision of high risk , unspecified, third trimester [facility] 2025-07-11 10:30 Other mental disorde rs complicating , third trimester [facility] 2025-07-11 10:30 Encounter for immunization [facility] 2025-07-11 10:30 32 weeks [facility] 2025-08-04 14:48 Encounter for immunization [facility] 2025-08-08 10:17 Supervision of high risk , unspecified, third trimester [facility] 2025-08-08 10:18 Encounter for immunization [facility] 2025-08-08 10:18 Encounter for screeni ng for Streptococcus B [facility] 2025-08-11 14:53 Anemia complicating , unspecified trimester [facility] 2025-08-11 14:53 Encounter for superv ision of normal first , unspecified trimester [facility] 2025-08-11 16:33 Anemia complicating , unspecified trimester [facility] 2025-08-11 16:33 Encounter for superv ision of normal first , unspecified trimester [facility] 2025-08-12 00:04 Anemia complicating , unspecified trimester [facility] 2025-08-12 00:04 Encounter for superv ision of normal first , unspecified trimester [facility] 2025-08-15 10:04 Supervision of other high risk pregnancies, third trimester [facility] 2025-08-15 10:04 Anemia complicating , unspecified trimester [facility] 2025-08-15 10:04 Encounter for superv ision of normal first , unspecified trimester [facility] 2025-08-15 10:05 Supervision of other high risk pregnancies, third trimester [facility] 2025-08-15 10:05 Anemia complicating , third trimester [facility] 2025-08-15 10:05 Anemia complicating , unspecified trimester [facility] 2025-08-15 10:05 Encounter for superv ision of normal first , unspecified trimester [facility] 2025-08-15 10:05 37 weeks gestation of [facility] 2025-08-15 10:05 half-way (current) use of anti coagulants [facility] 2025-08-15 10:05 Personal history of pulmonary e mbolism [facility] 2025-08-16 06:44 Anemia complicating , unspecified trimester [facility] 2025-08-18 09:21 Decreased move ments, third trimester, not applicable or unspecified [facility] 2025-08-18 15:04 Decreased move ments, third trimester, not applicable or unspecified [facility] 2025-08-25 11:50 Supervision of other high risk pregnancies, third trimester [facility] 2025-08-25 11:50 38 weeks gestation of [facility] 2025-08-25 11:50 Personal history of pulmonary e mbolism [facility] Results/Labs test date facility value unit notes Result panel 1 HGB - HEMOGLOBIN 2025-06-06 13:10 [facility] 10.1 g/dl (missing) RED CELL DISTRIBUTION WIDTH 2025-06-06 13:10 [facility] 13.9 % (missing) THYROID STIMULATING HORMONE 2025-06-06 13:10 [facility] 2.27 uiu/ml (missing) PLT - PLATELET COUNT 2025-06-06 13:10 [facility] 261 10 3/ul (missing) MEAN CORPUSCULAR HEMOGLOBIN 2025-06-06 13:10 [facility] 27.9 pg (missing) RED BLOOD COUNT 2025-06-06 13:10 [facility] 3.62 10 6/ul (missing) HCT - HEMATOCRIT 2025-06-06 13:10 [facility] 31.2 % (missing) MEAN CORPUSCULAR HGB CONC 2025-06-06 13:10 [facility] 32.4 g/dl (missing) MEAN CORPUSCULAR VOLUME 2025-06-06 13:10 [facility] 86.2 fl (missing) WHITE BLOOD COUNT 2025-06-06 13:10 [facility] 9.6 x10 3/ul (missing) MEAN PLATELET VOLUME 2025-06-06 13:10 [facility] 9.8 fl (missing) GLUCOSE,1H PP 50GM DOSE 2025-06-06 13:10 [facility] 92 mg/dl 50g Challenge 1 hr post Glucose < 140 mg/dL Reference: [place] [employer] As of April 2023 testing method has changed, this may include reference ranges. RPR 2025-06-06 13:10 [facility] Non Reactive (missing) Performed at: [facility] [id number] [employer] Parer: Jewel Dominguez MD, Phone: [phone] Result panel 2 FERRITIN 2025-06-29 13:05 [facility] 2.7 ng/ml (missing) IRON 2025-06-29 13:05 [facility] 24 ug/dl As of April 2023 testing method has changed, this may include reference ranges. % IRON SATURATION 2025-06-29 13:05 [facility] 4 % (missing) TRANSFERRIN 2025-06-29 13:05 [facility] 412 mg/dl As of April 2023 testing method has changed, this may include reference ranges. TOTAL IRON BINDING CAPACITY 2025-06-29 13:05 [facility] 577 ug/dl (missing) Result panel 3 HGB - HEMOGLOBIN 2025-08-11 15:06 [facility] 11.9 g /dl (missing) RED CELL DISTRIBUTION WIDTH 2025-08-11 15:06 [facility] 16.6 % (missing) PLT - PLATELET COUNT 2025-08-11 15:06 [facility] 210 10 3/ul (missing) MEAN CORPUSCULAR HEMOGLOBIN 2025-08-11 15:06 [facility] 28.5 pg (missing) MEAN CORPUSCULAR HGB CONC 2025-08-11 15:06 [facility] 33 .2 g/dl (missing) HCT - HEMATOCRIT 2025-08-11 15:06 [facility] 35.8 % (missing) RED BLOOD COUNT 2025-08-11 15:06 [facility] 4.18 10 6/ul (missing) FERRITIN 2025-08-11 15:06 [facility] 48.7 ng/ml (missing) WHITE BLOOD COUNT 2025-08-11 15:06 [facility] 8.8 x10 3/ul (missing) MEAN CORPUSCULAR VOLUME 2025-08-11 15:06 [facility] 85.6 fl (missing) MEAN PLATELET VOLUME 2025-08-11 15:06 [facility] 9.4 fl (missing) Social History date description facility
[2025-08-25 16:59] LABS: HCT - HEMATOCRIT 36.4 % (37.0-47.0); HGB - HEMOGLOBIN 11.9 g/dL (12.0-16.0); MEAN PLATELET VOLUME 9.9 fL (7.9-10.8); NRBC ABSOLUTE COUNT (AUTO) 0.00 x10^3/uL; NUCLEATED RED BLOOD CELLS AUTO 0.0 /100WBC; PLT - PLATELET COUNT 238 10^3/uL (130-450); RED CELL DISTRIBUTION WIDTH 16.6 % (12.0-15.0)
[2025-08-25] MEDS ORDERED: SODIUM CHLORIDE FLUSH 0.9% 10 ML SYRINGE IVP SCH (17:00)
[2025-08-25 17:11] LABS: ALT ALANINE AMINOTRANSFERASE 10.0 IU/L (10-60); AST ASPARTATE AMINOTRANSFERASE 12.0 IU/L (10-42); BUN - BLOOD UREA NITROGEN 9.0 mg/dL (6-20); CARBON DIOXIDE - CO2 21.0 mmol/L (21-32); CREATININE 0.5 mg/dL (0.6-1.3); GFR - MDRD 153.0 (>89)
[2025-08-25 17:33] LABS: INR 1.0 (0.8-1.2); PT - PROTHROMBIN TIME 10.7 secs (9.9-12.6)
--- NOTE | 2025-08-25 21:18 | HISTORY & PHYSICAL EXAMINATION ---
Admit History Visit Reason Visit Reason: Other (Here for scheduled induction) : 2 Parity: 1 Care: positive [facility] Risk/History: positive Other (History pulmonary embolism) Complications This : positive Other (History pulmonary embolism, CF carrier, anemia, anxiety/depression, hx blood transfusion, Rh neg) Smoking Status: Never smoker Mother's Labs Mother's Blood Type: positive A Mother's RH: positive Negative GBS: positive Group B Step Negative Rubella Status: positive Immune Other Maternal History Other Maternal History: Patient is a 24 yo at 39+1 wks here for scheduled induction of labor. She has a hx of pulmonary embolism and has been on prophylactic Lovenox during this . She transitioned to Heparin yesterday in anticipation of admission for delivery. Last dose of Heparin was this morning around 1000. She has had intermittent contractions today and was seen in clinic this afternoon. Cvx at that time was 3 cm dilated, 70% effaced. She denies leakage of fluid, vaginal bleeding, or decreased movement. Specific Issues/Plans LMP: 11/16/2024 BASHIR by LMP: 08/23/2025 US: 01/27/25 9+1w BASHIR by US 08/31/2025 Final BASHIR: 08/31/2025 - H/o PE during stay 1st - on lovenox 40mg daily -> transitioning to heparin - referred to [facility] [place]. Growth US @ Prov at 32wk EFW 19%tile. - Anticardiolipin IgM slightly positive, repeat in 3 months. Repeat negative. - baby aspirin recommended [ ] [facility] [place] recommendation for PP anticoagulation: Resume lovenox for at least 6w with consideration to increase to 2x/day dosing, particularly if delivery is by C/S. - CF carrier - per admission notes last was to be tested, they report he had negative testing - blood transfusion 2upRBCs, after last delivery, only had 150cc blood loss, tachycardic and symptomatic, was ultimately dx with PE - Anemia in - received Fe inf on 06/29 - 08/11 ferritin 46, Hgb 11.9 - H/o anxiety/depression, borderline personality d/o - increasing anxiety, EPDS 15. Given hydroxyzine PRN on 07/07, referred to psych and BH (see therapist currently through talkspace) - Rh neg - Rhogam received at 27 wks Pre- Weight: 124 lb BMI: 21.4 Blood type: A- Antibody: negative CBC: PLT HCT HGB 12.3/37.0 273 RUB: immune VZV: NOT immune HBsAg: neg HepC: NR RPR/AB-EIA: NR HIV: NR PAP: 10/16/2023 GC/CT: 02/16/25 neg HSV: denies Genetic testing: [id number]- Negative AFP- Negative Covid:declines Flu: 08/04/25 FAS: Placenta: anterior without previa Cord: 3VC KAUSHIK: WNL EFW: 334g 53% 50gm OGCT: 92 3HR GTT: TDAP: 06/06/25 Breast Pump: has one RSV:07/07/25 RPR: NR 3rd trimester H/H/PLT 10.1/31.2/261 GBS: negative Delivery plan: Declines IOL. Switching to heparin at 37wk. Resume lovenox x 6wk PP. Contraception: Declines Meds/Allgy Home Medications Ambulatory Orders Medication Instructions Recorded Confirmed vits no.126-ferrous fum tab PO QDAY 01/17/25 08/25/25 28 mg iron-folic acid 800 mcg tablet (Classic ) aspirin 81 mg tablet,delayed 81 mg PO QDAY preeclampsi a 02/16/25 08/25/25 release prevention #180 tabs acetaminophen 325 mg tablet 325 mg PO Q6H PRN 03/16/25 08/25/25 (Tylenol) hydroxyzine pamoate 25 mg capsule 25 mg PO QID PRN anx iety #20 caps 07/07/25 08/25/25 (Vistaril) heparin (porcine) 10,000 unit/mL 10,000 unit subcut Q1 2H #25 mL 08/07/25 08/25/25 injection solution syringe with needle 1 mL 26 gauge #50 ea 08/19/25 x 1/2" (Remote Sensing Engineer Tray Intradermal Bevel) Allergies Allergies Allergy/AdvReac Type Severity Reaction Status Date / Time No Known Drug Allergies Allergy Verified 08/25/25 14:41 PFSH Active Problems All Active Problems (Updated 08/25/25 @ 21:31 by Tara Rose MD) 39 weeks gestation of (Acute) Supervision of high risk in third trimester (Acute) Anemia during (Acute) 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 Level: Independent Do you feel safe in your home environment?: Yes History of physical, verbal, emotional, or financial abuse?: No ETOH Use: None Substance Use: denies use POLST Patient has POLST: No POLST CPR Status: Attempt Resuscitation (CPR) Level of Medical Intervention: Full Treatment Review of Systems Status of ROS: 10 or more systems reviewed and unremarkable except as noted in history and below Physical Abdominal Exam Vital Signs: Reviewed Contraction Frequency (min/apart): Q 5-7 min, irreg Contraction Intensity: positive Mild Monitoring Heart Rate Baseline: 145 Strip Review: positive Category I Presentation Presentation: positive Vertex (By exam) Vaginal Exam Membranes: positive Membranes intact Dilation (in cm): 4 Effacement (%): 60 Station: positive -2 Cervical Position: positive Midposition Speculum Exam Speculum Exam Performed: positive No Plan for Labor Plan For Labor I expect patient to be DC'd or transferred within 96 hours.: Yes Conclusion/Plan Problem List (1) Supervision of high risk in third trimester: Plan: at 39+1 wks complicated by hx of PE, managed with Lovenox during and recently transitioned to Heparin in anticipation of induction and delivery. Patient shabbir irregularly with favorable cvx 60/-2. FHT cat 1 and reassuring. - Admit for labor induction. - Discussed methods of induction, and patient favoring amniotomy first. Discussed/recommended that Pitocin be started if no onset of contractions by 6-8 hrs post-amniotomy. Pt in agreement, and amniotomy performed at 1732 shortly after admission. Order placed to start Pitocin around midnight if no ctx by then. - Medical induction and vaginal delivery consent forms reviewed and signed. - Pain mgmt: pt plans to avoid epidural if possible. Consider IV pain meds, shower/bath, nitrous oxide, postion changes/ambulation. She will be able to receive regional anesthesia at least 12 hrs from last Heparin dose (around 1000 this morning). - VTE prophylaxis: on anticoagulation, and ambulation in labor; holding Lovenox/Heparin for delivery, then will restart . - GBS neg - Anticipate (2) History of pulmonary embolism: (3) 39 weeks gestation of : Plan Induction of Labor Consent (Medical Indication) You are being offered induction of labor for a medical indication. This means that medications or procedures will be used to start labor before it begins on its own, due to a clinical need identified by your care team. Benefits of medically indicated induction: - Addresses specific maternal or conditions that may increase risk if continues (such as hypertension, diabetes, growth restriction, or other complications). - May reduce the risk of stillbirth, maternal infection, or worsening of the underlying medical condition. - Increases the likelihood of timely delivery when continuing poses greater risk than induction.[1] Risks of induction: - Induction may result in longer time in labor and delivery compared to spontaneous labor. - There is a possibility that induction may not result in vaginal ; some patients may require section. - Risks vary depending on the method used, and not all patients are eligible for every method.[1] Procedures and medications used: - Pharmacologic cervical ripening: - <em>Misoprostol (oral or vaginal):</em> Used off-label for cervical ripening and induction. It is effective but carries a risk of uterine tachysystole (frequent contractions), which may affect heart rate and require intervention. Uterine rupture is a rare but serious risk, especially in those with prior uterine surgery, and misoprostol is contraindicated in these patients. Other risks include gastrointestinal symptoms and fever.[1][2][3] - <em>Dinoprostone (vaginal or intracervical):</em> FDA-approved for cervical ripening. Risks include uterine hyperstimulation, fever, and gastrointestinal symptoms. Contraindicated in patients with prior uterine surgery.[1][4] - Mechanical cervical ripening: - <em>Balloon catheters (Bates or double-balloon):</em> Placed in the cervix to help it soften and open. Risks are generally low, with pain/discomfort being most common. There is a small increased risk of maternal infection compared to pharmacologic agents. Rare complications include bleeding, accidental rupture of membranes, and, very rarely, uterine perforation.[5][6] - <em>Synthetic osmotic dilators:</em> Placed in the cervix to absorb fluid and expand, helping to open the cervix. Risks include discomfort and cramping. These agents are associated with a lower risk of uterine hyperstimulation compared to prostaglandins.[7] - Oxytocin: - Administered via IV to stimulate uterine contractions. Oxytocin is effective in inducing labor and, when combined with amniotomy, can shorten labor duration. Risks include uterine tachysystole (excessive contractions), which can lead to abnormal heart rate patterns and, rarely, acidosis. Other risks include increased pain, need for epidural, and, rarely, hemorrhage. Careful monitoring is required.[8][9][10][11] - Amniotomy (artificial rupture of membranes): - Involves breaking the amniotic sac ("water") to help start or speed up labor, often performed in combination with oxytocin. Benefits include shortening the time to delivery and increasing the proportion of women who deliver within 24 hours, without increasing the risk of delivery or other major complications. Risks are low but include discomfort, rare risk of cord prolapse, infection, or bleeding.[8][12][13][14][15][16][17][18] Alternatives: - Expectant management: Waiting for labor to start naturally, with induction only if medically indicated later. Other information: - The choice of method depends on your clinical situation and cervical status. Not every candidate for induction is eligible for all methods. - All methods require monitoring for maternal and well-being during the process. - Please ask any questions or discuss concerns before signing. Consent for Vaginal Delivery Procedures I am being offered care for vaginal delivery, which may include internal monitoring, episiotomy, use of forceps or vacuum, and emergency section if needed. The following explains these procedures, their benefits, risksincluding specific risks for vacuum and forceps deliveryand alternatives.[1][2][3][4][5][6][7][8][9][10][11][12][13][14][15][16][17][18][19] [20][21][22][23] Vaginal Delivery: Vaginal is the most common way to deliver a baby. It usually has fewer risks and a faster recovery than . Risks include bleeding, infection, tears in the vagina or perineum, injury to the baby or mother, and rarely, the need for blood transfusion due to heavy bleeding ( hemorrhage). Severe tears (third- or fourth-degree) are more common with operative vaginal delivery.[1][2][3][8][9][10] Internal Monitoring: Special monitors may be placed inside the uterus or on the baby's scalp to check the baby's heart rate and contractions. Risks include infection, bleeding, and rarely, injury to the baby.[15][24][25] Episiotomy: An episiotomy is a small cut made in the perineum to help deliver the baby if needed. Risks include pain, bleeding, infection, longer healing time, and increased risk of blood loss.[8][26][27] Vacuum Delivery (Vacuum Extraction): Vacuum delivery uses a suction cup to help guide the baby out. - Risks to the mother: Increased risk of vaginal and perineal tears, hemorrhage, and need for blood transfusion. The risk of severe perineal trauma is lower than with forceps but higher than with spontaneous vaginal delivery.[16][18][19][20][21][22][23] - Risks to the baby: Higher risk of scalp injuries (such as cephalohematoma and caput succedaneum), scalp lacerations, and, rarely, subgaleal hemorrhage. injuries are more common than with spontaneous vaginal delivery but less frequent than with forceps for some types of trauma.[17][19][20][22][23] Forceps Delivery: Forceps delivery uses metal instruments to help guide the baby out. - Risks to the mother: Higher risk of severe perineal tears (third- and fourth- degree), vaginal and cervical lacerations, hemorrhage, and need for blood transfusion. Maternal trauma is more frequent than with vacuum delivery.[16][18][19][20][21][22] - Risks to the baby: Increased risk of facial injuries, scalp lacerations, and, rarely, nerve injury (such as facial nerve palsy) and skull fracture. trauma rates are similar to vacuum for some injuries but higher for others, such as facial injuries.[17][19][20][22] Emergency Section: A section () is surgery to deliver the baby through an incision in the abdomen. It may be needed if there are concerns for the baby's or mother's health during labor. Risks include infection, bleeding, blood clots, injury to organs, longer recovery, and a higher risk of needing a blood transfusion compared to vaginal delivery.[1][2][5][6][7][10][11][12] Blood Transfusion: A blood transfusion may be needed if there is significant blood loss during or after delivery. The risk is higher with operative vaginal delivery and section than with spontaneous vaginal delivery. Risks of transfusion include allergic reactions, fever, infection, and very rarey, serious complications.[1][2][3][5][6][7][8][10][11][12] Possible Additional Procedures for Heavy Bleeding - If heavy bleeding occurs, additional interventions may be needed, including medications (uterotonics, tranexamic acid), exam under anesthesia in the operating room, uterine curettage (if suspected retained tissue or placenta), intrauterine balloon or vacuum tamponade, and/or abdominal incision (laparotomy) to perform uterine compression sutures (B-Malone), vessel ligation ([place] suture), or hysterectomy.[12][13][14][15][16][17][18] Alternatives: Alternatives depend on the situation. For most low-risk pregnancies, vaginal delivery is preferred. If complications arise, the care team will discuss options, including waiting, changing positions, or other interventions.[14][28] Your Rights: - You have the right to ask questions and discuss your preferences. - You may accept or refuse any procedure. - Your care team will support you in making informed decisions. Lab Results Lab results reviewed: Yes 08/25/25 16:40 08/25/25 16:40 Exam Physical Exam General Appearance: positive No acute distress and Alert Respiratory: positive No respiratory distress Cardiovascular: positive Regular rate & rhythm Abdomen: positive Non-tender and Other (Gravid) Skin: positive Color nml Extremities: positive Nml appearance; negative Pedal edema Neurologic/Psychiatric: positive Oriented x3 and Mood/affect nml
[2025-08-25] MEDS: SODIUM CHLORIDE FLUSH 0.9% 10 ML SYRINGE IVP PRN (23:55)
[2025-08-25] MEDS: LACTATED RINGERS 1,000 ML IV SCH (23:59)
[2025-08-26] MEDS: OXYTOCIN/SODIUM CHLORIDE 500 ML IV SCH (00:04)
[2025-08-26] MEDS: ONDANSETRON 4 MG/2 ML VIAL IVP PRN (00:48)
[2025-08-26] MEDS: OXYTOCIN/SODIUM CHLORIDE 500 ML IV PRN (01:48)
[2025-08-26] MEDS ORDERED: NALOXONE 0.4 MG/ML VIAL IVP PRN (01:59)
[2025-08-26] MEDS ORDERED: hydrALAZINE INJ 20 MG/ML VIAL IVP PRN ×2 (01:59)
[2025-08-26] MEDS ORDERED: IBUPROFEN 600 MG TABLET PO PRN (01:59)
[2025-08-26] MEDS ORDERED: LABETALOL 5 MG/1 ML 20 ML MDV IVP PRN (01:59)
[2025-08-26] MEDS ORDERED: SIMETHICONE CHEW 80 MG TABLET PO PRN (01:59)
[2025-08-26] MEDS ORDERED: VARICELLA VACCINE LIVE/PF 1,350 UNIT/0.5 ML VIAL SUBQ ONE (01:59)
[2025-08-26] MEDS ORDERED: LABETALOL 20 MG/4 ML SYRINGE IVP PRN ×2 (01:59)
[2025-08-26] MEDS ORDERED: OXYTOCIN/SODIUM CHLORIDE 500 ML IV PRN (01:59)
--- NOTE | 2025-08-26 02:11 | DELIVERY NOTE ---
Delivery Note Labor Labor: positive Induced by ARM (AROM performed followed by start of Oxytocin) and Induced by oxytocin Infant Delivery Method Delivery Method: positive Spontaneous vaginal delivery Presentation Presentation: positive OA - occiput anterior Nuchal Cord Nuchal Cord: positive Present (x1, reduced over occiput) Amniotic Fluid Description Amniotic Fluid Description: positive Clear Episiotomy Type Episiotomy Type: positive None Laceration Laceration: positive None Delivery Outcome Delivery Date: 08/26/25 Delivery Time: 01:42 Delivery Outcome: positive Livebirth : positive Placed in direct skin contact with mother [place] sex: positive Male Cord Cord: positive 3 vessels Placenta Placenta: positive Intact and Expressed Estimated Blood Loss Estimated Blood Loss (in cc): 99 Post Delivery Events Post Delivery Events: positive No post delivery events Delivery Comments (Free Text/Narrative) Delivery Comments (Free Text/Narrative): Patient was admitted, and amniotomy performed for initiation of induction. When contractions had not intensified by about 6 hrs later, Pitocin was initiated. She reached max 2 mU/min and started to feel pressure around 0100, and mild variables were noted on FHT. She was found to be 6 cm dilated with low station. I arrived at the bedside as the head was seen at the perineum. She pushed with excellent efforts for a bed delivery. The head delivered, followed by reduction of a single nuchal cord over the occiput. Shoulders followed easily, and the baby was delivered and placed onto the maternal abdomen. occurred at 0142. After 1.5 min delay, the cord was clamped and cut. Placenta was expressed and delivered intact at 0149 with trailing membranes. Uterus firmed with Pitocin. Perineum examined and intact. Mom and baby are doing great! Plan for routine care and restart of Lovenox at 6 hrs .
[2025-08-26 07:09] LABS: RPR Non Reactive (Non Reactive)
[2025-08-26 07:12] LABS: HCT - HEMATOCRIT 34.2 % (37.0-47.0); HGB - HEMOGLOBIN 11.7 g/dL (12.0-16.0); MEAN PLATELET VOLUME 9.8 fL (7.9-10.8); PLT - PLATELET COUNT 213.0 10^3/uL (130-450); RED CELL DISTRIBUTION WIDTH 16.5 % (12.0-15.0)
[2025-08-26 07:26] LABS: INR 0.9 (0.8-1.2); PT - PROTHROMBIN TIME 10.5 secs (9.9-12.6)
[2025-08-26] MEDS: DOCUSATE SODIUM 100 MG CAPSULE PO SCH (08:08)
[2025-08-26] MEDS: ENOXAPARIN 40 MG/0.4 ML SYRINGE SUBQ SCH (08:08)
--- NOTE | 2025-08-26 12:50 | PROVIDER PROGRESS NOTE ---
Subjective Prog Note Date Prog Note Date: 08/26/25 Prog Note Time: 12:44 Subjective Subjective: Overall feeling well. Very happy with how the IOL process went. Denies CP, SOB. Feels that pain is well controlled. . Reports lochia is normal. Tolerating regular diet and urinating without difficulty. Current Medications Current Medications Current Medications: Current Medications Generic Name Dose Route Start Last Admin Trade Name Freq PRN Reason Stop Dose Admin Acetaminophen 1,000 mg 08/26/25 01:59 Acetaminophen 500 Mg Tablet PO Q8HR PRN Mild Pain or Fever>38C(100.4F) Docusate Sodium 100 mg 08/26/25 09:00 08/26/25 08:08 Docusate Sodium 100 Mg Capsule PO 100 mg BID LAURA Administration Enoxaparin Sodium 40 mg 08/26/25 08:00 08/26/25 08:08 Enoxaparin 40 Mg/0.4 Ml Syringe SUBQ 40 mg DAILY LAURA Administration Hydralazine HCl 10 mg 08/26/25 01:59 Hydralazine Inj 20 Mg/Ml Vial IVP .ONCE PRN SBP> or= 160 OR DBP> or= 110 Protocol Hydralazine HCl 5 - 10 mg 08/26/25 01:59 Hydralazine Inj 20 Mg/Ml Vial IVP Q20M PRN SBP >=160 and/or DBP >=110 Protocol Lactated Ringer's 500 mls @ 999 mls/hr 08/25/25 16:05 Lr IV PRN PRN abd pain Oxytocin/Sodium Chloride 500 mls @ 999 mls/hr 08/25/25 16:05 08/26/25 01:55 Pitocin/Sodium Chloride IV 300 milliunit/min PRN PRN 300 mls/hr POST- HEMORR PREVENTION Titration Protocol 999 MILLIUNIT/MIN Tranexamic Acid 1,000 mg in 100 mls @ 600 mls/hr 08/25/25 16:05 Tranexamic 1,000 Mg/100ml-Nacl IV Q30M PRN EBL >1200mL and within 3hr Lactated Ringer's 1,000 mls @ 125 mls/hr 08/25/25 23:55 08/26/25 02:01 Lr IV Infused .Q8H LAURA Infusion Oxytocin/Sodium Chloride 500 mls @ 999 mls/hr 08/26/25 01:59 Pitocin/Sodium Chloride IV PRN PRN POST- HEMORR PREVENTION Protocol 999 MILLIUNIT/MIN Ibuprofen 600 mg 08/26/25 01:59 Ibuprofen 600 Mg Tablet PO Q6HR PRN Moderate Pain (Level 4-6) Labetalol HCl 20 - 80 mg 08/26/25 01:59 Labetalol 5 Mg/1 Ml 20 Ml Mdv IVP Q10M PRN SBP> or= 160 OR DBP> or= 110 Protocol Labetalol HCl 20 - 40 mg 08/26/25 01:59 Labetalol 20 Mg/4 Ml Syringe IVP Q10M PRN SBP> or= 160 OR DBP> or= 110 Protocol Labetalol HCl 20 mg 08/26/25 01:59 Labetalol 20 Mg/4 Ml Syringe IVP .ONCE PRN SBP >=160 and/or DBP >=110 Protocol Methylergonovine Maleate 0.2 mg 08/25/25 16:05 Methylergonovine 0.2 Mg/Ml Vial IM .ONCE PRN Hemorrhage Misoprostol 600 mcg 08/25/25 16:05 Misoprostol 200 Mcg Tablet BC .ONCE PRN Hemorrhage Misoprostol 800 mcg 08/25/25 16:05 Misoprostol 200 Mcg Tablet MT .ONCE PRN Hemorrhage Naloxone HCl 0.4 mg 08/26/25 01:59 Naloxone 0.4 Mg/Ml Vial IVP .ONCE PRN Opioid Overdose Nifedipine 10 - 20 mg 08/26/25 01:59 Nifedipine 10 Mg Capsule PO Q20M PRN SBP >=160 and/or DBP >=110 Protocol Ondansetron HCl 4 mg 08/25/25 16:05 08/26/25 00:48 Ondansetron 4 Mg/2 Ml Vial IVP 4 mg PRN PRN Administration Nausea / Vomiting Ondansetron HCl 4 mg 08/25/25 16:05 Ondansetron Odt 4 Mg Tablet PO Q4HR PRN Nausea / Vomiting Oxytocin 10 unit 08/25/25 16:05 Oxytocin 10 Unit/Ml Vial IM .ONCE PRN Step One if no IV access. Simethicone 80 mg 08/26/25 01:59 Simethicone Chew 80 Mg Tablet PO TID PRN Gas Sodium Chloride 10 ml 08/25/25 16:05 08/25/25 23:55 Sodium Chloride Flush 0.9% 10 Ml Syringe IVP 10 ml PRN PRN Administration NEEDED PER PROVIDER ORDERS Sodium Chloride 10 ml 08/25/25 17:00 Sodium Chloride Flush 0.9% 10 Ml Syringe IVP Q8H LAURA Varicella Virus Vaccine Live 1,350 unit 08/27/25 09:00 Varicella Vaccine Live/Pf 1,350 Unit/0.5 Ml Vial SUBQ 08/27/25 09:01 .ONCE ONE Objective Vital Signs/Intake & Output Vital Signs: Vital Signs x48h Temp Pulse Resp BP Pulse Ox 08/26/25 11:55 98.1 F 73 14 113/48 L 98 08/26/25 08:17 98.1 F 66 18 115/58 L 99 Intake & Output: Intake & Output 08/23/25 08/24/25 08/25/25 08/26/25 23:59 23:59 23:59 23:59 Intake Total 1024 / 1024 Output Total 500 / 500 Balance 524 / 524 Weight (kg) 151 lb Objective Comments/Other: Gen: NAD, sitting up in bed with baby Chest: RRR, CTAB Abd: soft, non-tender, fundus firm. Ext: no LE edema, no evidence of DVT Lab Results 08/26/25 06:30 08/25/25 16:40 Other Labs: Lab Results x24hrs 08/26/25 08/26/25 08/25/25 Range/Units 09:21 06:30 16:40 WBC 13.7 H 8.0 (4.8-10.8) x10^3/uL RBC 4.03 L 4.25 (4.20-5.40) 10^6/uL Hgb 11.7 L 11.9 L (12.0-16.0) g/dL Hct 34.2 L 36.4 L (37.0-47.0) % MCV 84.9 85.6 (81.0-99.0) fL MCH 29.0 28.0 (27.0-31.0) pg MCHC 34.2 32.7 (32.0-36.0) g/dL RDW 16.5 H 16.6 H (12.0-15.0) % Plt Count 213 238 (130-450) 10^3/uL MPV 9.8 9.9 (7.9-10.8) fL Neut # (Auto) 5.0 (1.5-6.6) 10^3/uL Lymph # (Auto) 2.3 (1.5-3.5) 10^3/uL [place] # (Auto) 0.6 (0.0-1.0) 10^3/uL Eos # (Auto) 0.1 (0.0-0.7) 10^3/uL Baso # (Auto) 0.0 (0.0-0.1) 10^3/uL Absolute Nucleated RBC 0.00 x10^3/uL Nucleated RBC % 0.0 /100WBC PT 10.5 10.7 (9.9-12.6) secs INR 0.9 1.0 (0.8-1.2) APTT 21.5 L 21.4 L (24.9-33.3) secs Sodium 134 L (135-145) mmol/L Potassium 3.8 (3.5-4.5) mmol/L Chloride 104 (101-111) mmol/L Carbon Dioxide 21 (21-32) mmol/L Anion Gap 9.0 (6-13) BUN 9 (6-20) mg/dL Creatinine 0.5 L (0.6-1.3) mg/dL Estimated GFR (MDRD) 153 (>89) Glucose 75 (74-104) mg/dL Calcium 8.8 (8.5-10.3) mg/dL Total Bilirubin 0.4 (0.2-1.0) mg/dL AST 12 (10-42) IU/L ALT 10 (10-60) IU/L Alkaline Phosphatase 103 (42-121) IU/L Total Protein 6.6 (6.4-8.9) g/dL Albumin 3.8 (3.2-5.5) g/dL Globulin 2.8 (2.1-4.2) g/dL Albumin/Globulin Ratio 1.4 (1.0-2.2) RPR Non Reactive (Non Reactive) Blood Type A NEGATIVE A NEGATIVE Weak D (Du) WEAK-D NEGATIVE Antibody Screen NEGATIVE Maternal Bleed NEGATIVE (NEGATIVE) Assessment/Plan Problem List (1) care and examination of lactating mother: Impression: Doing very well. Continue routine care. Restarted prophylactic lovenox at 8AM this morning. Also added order to SCDs and inforned RN. Anticipate discharge home tomorrow. (2) History of pulmonary embolism:
[2025-08-26] MEDS: ACETAMINOPHEN 500 MG TABLET PO PRN (16:14)
[2025-08-26] MEDS: RHO(D) IMMUNE GLOBULIN 300 MCG SYRINGE IM ONE (20:46)
[2025-08-27 07:51] VITALS: TEMP 98.4
[2025-08-27] MEDS ORDERED: MEASLES,MUMPS & RUBELLA VACC 0.5 ML VIAL SUBQ ONE (09:01)
--- NOTE | 2025-08-27 10:22 | Discharge Summary ---
Discharge Summary Admit Date: 08/25/25 Discharge Date: 08/27/25 Discharging Provider: Sasha Galarza MD [facility] History of Present Illness: Admission Diagnosis: - SIUP at 39w1d - H/o PE - Rh neg - Varicella non immune - Anemia of - H/o anxiety/depression, borderline personality d/o Discharge Diagnosis: - Same, delivered Procedures: Induction of labor with SVE Hospital Course: Milly was admitted for IOL given h/o PE on anticoaculation. Amniotomy performed for initiation of induction. When contractions had not intensified by about 6 hrs later, Pitocin was initiated. She reached max 2 mU/min and progressed quickly in active labor with very short 2nd stage. QBL 99cc. Prophylactic lovenox was started 6 hours after delivery. course was uncomplicated. Condition on Discharge: She feels well, completely different from her last delivery. Pain is well controlled with current medications. The baby is doing well. Baby is feeding via . She is ambulating well, tolerating normal diet, urinating without difficulty. Lochia is reported as normal. OBJECTIVE: Vital signs reviewed GENERAL: NAD CHEST: non labored respirations ABD: soft, non tender, fundus firm EXT: no lower extremity edema; No evidence of DVT LAB & IMAGING STUDIES: See below PLAN: Plan for discharge home with follow up in clinic in 1 week. Reviewed home care instructions and medications. Patient counseled regarding signs and symptoms of infection, excessive bleeding, vaginal rest and activity restrictions as well as VTE precautions. Discussed continuation of lovenox for 6 weeks . Discussed that additional support is available in our clinic if needed. ALLERGIES Allergies Allergy/AdvReac Type Severity Reaction Status Date / Time No Known Drug Allergies Allergy Verified 08/26/25 08:12 MEDICATIONS Ambulatory Orders Medication Instructions Recorded Confirmed vits no.[id number]-ferrous fum 1 tab PO DAILY 08/26/25 28 mg iron-folic acid 800 mcg tablet (Classic ) acetaminophen 325 mg tablet 325 mg PO Q6H PRN pain 02/0408/26/25 (Tylenol) hydroxyzine pamoate 25 mg capsule 25 mg PO QID PRN anx iety #20 caps 07/07/25 08/26/25 (Vistaril) syringe with needle 1 mL 26 gauge #50 ea 08/19/25 x 1/2" (Environmental Remediation Engineer Tray Intradermal Bevel) PHYSICAL EXAM AT DISCHARGE Vital Signs: Vital Signs x48h Temp Pulse Resp BP Pulse Ox 08/27/25 07:50 98.4 F 62 16 117/65 98 08/27/25 03:50 98.6 F 85 18 104/52 L 97 LABS 08/26/25 06:30 08/25/25 16:40 TIME SPENT Time Spent in Discharge (Minutes): 20 Discharge Plan Discharge Patient Disposition: 01 Home, Self Care Prescriptions: Continued (DME) Environmental Remediation Engineer Tray Intradermal Dilia 1 mL 26 gauge x 1/2" syringe See Rx Instructions .Route Qty: 50 0RF Rx Instructions: As directed. OK to substitute similar syringe. Classic 28 mg iron- 800 mcg tablet 1 tab PO DAILY hydroxyzine pamoate [Vistaril] 25 mg capsule 25 mg PO QID PRN (Reason: anxiety) Qty: 20 2RF acetaminophen [Tylenol] 325 mg tablet 325 mg PO Q6H PRN (Reason: pain) Discontinued heparin (porcine) 10,000 unit/mL solution 10,000 unit subcut Q12H Qty: 25 1RF Rx Instructions: use instead of Lovenox, starting at 37 weeks. twice a day. then you will go back to Lovenox after delivery. aspirin 81 mg tablet,delayed release (DR/EC) 81 mg PO DAILY Activity Restrictions/Additional Instructions: You should continue to take your lovenox until 6 weeks . You may alternate over the counter acetaminophen and ibuprofen as needed for pain: - ibuprofen 600mg every 6 hours as needed - acetaminophin 650mg every 4 hours as needed or 1000mg every 6 hours as needed. If you are struggling with constipation, over the counter miralax or senna may be helpful. Continue over the counter iron supplementation: - One option is ferrous sulfate 325 mg once every OTHER day. Taking iron every other day may help reduce side effects and improve absorption. - Take iron in the morning, on an empty stomach, with a full glass of water or orange juice (vitamin C helps your body absorb iron). - Avoid tea, coffee, milk, and calcium supplements for at least one hour after taking iron, as these can block absorption. - If iron upsets your stomach, you may take it with a small amount of food, but this can lower how much iron your body absorbs. - Common side effects include nausea, constipation, diarrhea, and dark stoolsthese are usually not serious. Print Language: Lao Patient Instructions: After a Vaginal , Pain After Childbirth, Breast Care After , Preventing Deep Vein Thrombosis Follow-up Care: Sasha Galarza MD [Primary Care Provider, Obstetrics/Gynecology]
[2025-08-27] MEDS: VARICELLA VACCINE LIVE/PF 1,350 UNIT/0.5 ML VIAL SUBQ ONE (11:51)
[2025-08-27 12:19] VITALS: BP 111/71; O2SAT 96
--- NOTE | 2025-08-27 12:59 | Labor Flowsheet ---
Labor Flowsheet Datetime Report Generated by CPN: 08/27/2025 12:59 Datetime: 08/27/2025 11:37 VITAL SIGNS NBP Sys/Vivien/Mean (mmHg): 111 : 71 : 79 Pulse: 79 Datetime: 08/27/2025 03:49 SpO2 (%): 97 Datetime: 08/26/2025 08:00 Stage of : Datetime: 08/26/2025 06:05 Respirations: 18 Temperature (C): 36.4 Temperature Route: Oral Datetime: 08/26/2025 01:55 Medication Comments: Pitocin rate change to 300mls/hr Datetime: 08/26/2025 01:42 UTERINE ACTIVITY Monitor Mode: External Frequency (min): 2-3 Quality: Strong Duration (sec): 60-110 Pattern: Normal: <= 5 Contractions in 10 Minutes ASSESSMENT A Monitor Mode: External US FHR Baseline Rate : 140 Variability: Moderate 6-25 bpm Accelerations: 15X15 Decelerations: Variable Category: Category II Datetime: 08/26/2025 01:38 STAGE 2 Pushing: Involuntary Pushing Pushing Position: Pushing with Contractions Pushing Progress: with Pushing Datetime: 08/26/2025 01:30 Resting Tone (Palpate): Relaxed Monitor Interventions for FHR: Ultrasound Adjusted Patient Care Comments: RN remains cont at bedside, holding EFM, additional RNs at bedside preparing for delivery Datetime: 08/26/2025 01:29 VAGINAL EXAM Dilatation (cm): 8.0 Effacement (%): 90 Station: 1 Exam by: RN Alma, I Datetime: 08/26/2025 01:20 Patient Position/Activity: Hands-Knees Datetime: 08/26/2025 01:15 COMMUNICATION Communication: RN at Bedside; RN Reviewed Strip Datetime: 08/26/2025 01:02 Cervix, Consistency: Soft Datetime: 08/26/2025 01:00 Monitor Interventions for UA: [place] Adjusted Datetime: 08/26/2025 00:57 I/O Interventions: Up to BR Datetime: 08/26/2025 00:50 Pain Coping: Breathing Through Contractions Datetime: 08/26/2025 00:06 LaborFlag: Labor Datetime: 08/26/2025 00:04 MEDICATIONS Pitocin (milliunits): Started @ 2 Datetime: 08/26/2025 00:00 Pitocin Checklist: At Least 1 Acceleration of 15 bpm x 15 Seconds in 30 Minutes or Adequate Variability; No More than 1 Late Deceleration Occurred in Past 30 Minutes; No More than 2 Variable Decelerations > 60 Seconds in Duration and decreasing >60 bpm in 30 minutes; No More than 5 Uterine Contractions in 10 Minutes for any 20 Minute Interval; Uterus Palpates Soft between Contractions Comments: variable decel x1 Datetime: 08/25/2025 20:55 Communication Comments: Discussed plan of care with Dr Rose via phone call at this time, plan remains to start pitocin at midnight is pt's ctx pattern is inadequate. Datetime: 08/25/2025 20:20 Membranes Ruptured Date/Time: 08/25/2025 17:32 Amniotic Fluid Amount: Moderate Amniotic Fluid Odor: Normal Datetime: 08/25/2025 18:30 Contraction Comments: irritability between contractions Datetime: 08/25/2025 17:32 Membrane Status: Ruptured Membranes Rupture Method: Artificial Amniotic Fluid Color: Clear Hygiene: Greer Care Datetime: 08/25/2025 16:45 Oxygen Method: Room Air Datetime: 08/25/2025 16:40 PATIENT CARE IV/Blood Work: IV Started; Labs Drawn with IV Start Datetime: 08/25/2025 16:18 PAIN Pain Scale: 0 Pain Presence: None/Denies Pain Goal: 10 Pain Assessment Comments: pt. able to feel contraction but is not painful. Pt. does not want an epidural or want to be asked about pain. Knows what is available and will ask if she wants.
== END 2025-08-27 12:20 | disposition home or self-care (01) | DRG 807 ==
LOC: WFO 15:55 → FBP 15:58
PROVIDERS: ADMIT Obstetrics & Gynecology; ATTEND Obstetrics & Gynecology
DX: F41.9 Anxiety disorder, unspecified; F60.3 Borderline personality disorder; Z23 Encounter for immunization; O69.81X0 Labor and delivery complicated by cord around neck, without compression, not applicable or unspecified; F32.A Depression, unspecified; Z37.0 Single live birth; Z14.1 Cystic fibrosis carrier; Z3A.39 39 weeks gestation of pregnancy; Z86.711 Personal history of pulmonary embolism; O99.344 Other mental disorders complicating childbirth; Z79.01 Long term (current) use of anticoagulants; O99.02 Anemia complicating childbirth